=== PATIENT | male | born 1965 | race Caucasian/White ===

== ENCOUNTER → 2024-07-12 18:19 | Outpatient (ROUT) | payer OTHER, MEDICAID, SELFPAY ==
[2024-07-12 18:28] LABS: Add Manual Diff / Slide Review NO; Basophils Absolute Auto 100 /uL (0-100); Basophils Percent Auto 1.3 % (0-2); Eosinophils Absolute Auto 300 /uL (0-450); Eosinophils Percent Auto 3.4 % (2-4); Hematocrit 41.9 % (41-53); Hemoglobin 14.3 g/dL (13.5-17.5); Lymphocytes Absolute Auto 2200 /uL (1100-4500); Lymphocytes Percent Auto 26.5 % (25-40); Mean Corpuscular HGB Conc 34.1 % (30-36); Mean Corpuscular Hemoglobin 29.3 PG (26-34); Mean Corpuscular Volume 85.9 fL (80-100); Monocytes Absolute Auto 900 /uL (0-900); Monocytes Percent Auto 10.5 % (3-14); Neutrophils Absolute Auto 4700 /uL (1500-7000); Neutrophils Percent Auto 58.3 % (50-75); Platelet Count 264 X10^3/uL (150-400); Red Blood Cell Count 4.88 X10^6/uL (4.5-5.9); Red Cell Distribution Width 13.7 % (11.6-14.8); White Blood Cell Count 8.2 X10^3/uL (4.5-11.0)
[2024-07-12 18:40] LABS: Appearance Urine UA CLOUDY; Bilirubin Urine UA NEGATIVE (NEGATIVE); Glucose Urine UA NEGATIVE (Negative); Ketones Urine UA TRACE (NEGATIVE); Leukocyte Esterase Urine UA NEGATIVE (NEGATIVE); Nitrite Urine UA NEGATIVE (Negative); Occult Blood Urine UA NEGATIVE (Negative); Protein Urine UA 2+ (Negative); pH Urine UA >= 9.0 (4.5-8.0)
[2024-07-12 18:44] LABS: Blood Urea Nitrogen 26 mg/dL (9-20); Calcium 9.7 mg/dL (8.4-10.2); Carbon Dioxide 25 mmol/L (22-32); Chloride 104 mmol/L (98-107); Color Urine UA Amber; Estimated Glomerular Filt Rate > 60 mL/min (>60); Glucose 121 mg/dL (80-110); HEMOLYSIS 21 (0-50); Potassium 4.3 mmol/L (3.4-5.1); Sodium 140 mmol/L (137-145)
[2024-07-12 18:51] LABS: Bacteria Urine Moderate (10-30); Culture Indicated Urine Specimen Cultured; RBC Urine 5-10/HPF (0-5/HPF); Squamous Epithelial Cell Urine 0-1 /HPF (0-5/HPF); Urine Volume 10mL (spun); WBC Urine 1-5/HPF (0-5/HPF)
== END ==
PROVIDERS: Visit Provider Internal Medicine
DX: R30.0 Dysuria (principal); R10.9 Unspecified abdominal pain
CPT/HCPCS: 80048; 81001; 85025; 87086

== ENCOUNTER 2024-07-14 15:45 | Emergency (ER) | payer OTHER, MEDICAID, SELFPAY ==
[2024-07-14] VITALS (16 sets, daily range): BP systolic 151–240; BP diastolic 80–140; PULSE 66–82; RESP 15–18; TEMP 36.5; O2SAT 93–98; BMI 29.9
--- NOTE | 2024-07-14 15:59 | DI.RAD.S_ITS ---
PROCEDURE: XR CHEST 1V INDICATIONS: chest pain TECHNIQUE: One view of the chest was acquired. COMPARISON: Chest x-ray December 30 2022 FINDINGS: New mild bilateral perihilar and lower lobe peribronchial thickening some of which may be related to expiratory result although bronchitis, viral infection, asthma or other process could be considered. Mild calcifications of the aortic arch and descending aorta unchanged. Moderate degenerate changes of the thoracic spine unchanged. Cardiopericardial silhouette and pulmonary vasculature within normal limits. No pneumothorax, no pleural effusion, no lobar consolidation. IMPRESSION: New mild bilateral perihilar and lower lobe peribronchial thickening as discussed above bronchitis, viral infection, asthma or other process could be considered. If symptoms persist or worsen, CT chest could be performed Dictated by: Sim Chisholm M.D. on 07/14/2024 at 16:24 Approved by: Sim Chisholm M.D. on 07/14/2024 at 16:32
--- NOTE | 2024-07-14 16:06 | EKG_ITS ---
[address] [address] Test Date: 2024-07-14 Pat Name: MONY MONET Department: [facility] Room: Gender: Male Stock Order Lister: JEANNETTE : 1965 Requested By: Order Number: [id number] Reading MD: Zaire Rodrigues Measurements Intervals [place] Rate: 67 P: 50 OK: 152 QRS: 69 QRSD: 92 T: 41 QT: 428 QTc: 452 Interpretive Statements Normal sinus rhythm Electronically Signed On 07-14-2024 19:52:37 PDT by Zaire Rodrigues
[2024-07-14 16:16] LABS: Add Manual Diff / Slide Review NO; Basophils Absolute Auto 100 /uL (0-100); Basophils Percent Auto 1.2 % (0-2); Eosinophils Absolute Auto 300 /uL (0-450); Eosinophils Percent Auto 3.8 % (2-4); Hematocrit 40.7 % (41-53); Hemoglobin 13.9 g/dL (13.5-17.5); Lymphocytes Absolute Auto 1800 /uL (1100-4500); Mean Corpuscular HGB Conc 34.1 % (30-36); Mean Corpuscular Hemoglobin 29.1 PG (26-34); Mean Corpuscular Volume 85.3 fL (80-100); Monocytes Absolute Auto 1100 /uL (0-900); Monocytes Percent Auto 12.3 % (3-14); Neutrophils Absolute Auto 5300 /uL (1500-7000); Neutrophils Percent Auto 61.7 % (50-75); Platelet Count 270 X10^3/uL (150-400); Red Blood Cell Count 4.77 X10^6/uL (4.5-5.9); Red Cell Distribution Width 13.9 % (11.6-14.8); White Blood Cell Count 8.5 X10^3/uL (4.5-11.0)
[2024-07-14 16:17] LABS: INR 1.1 (0.9-1.3); Prothrombin Time 12.4 SECONDS (9.4-12.5)
[2024-07-14 16:20] LABS: PTT Partial Thromboplastin Tim 28 SECONDS (25.1-36.5)
[2024-07-14 16:22] LABS: Alanine Aminotransferase 6 IU/L (<50); Albumin 4.3 g/dL (3.5-5.0); Albumin Globulin Ratio 1.5 (1.0-2.8); Alkaline Phosphatase 114 U/L (38-126); Aspartate Aminotransferase 23 IU/L (17-59); BUN Creatinine Ratio 19.2 (6-22); Bilirubin Total 0.5 mg/dL (0.2-1.3); Blood Urea Nitrogen 23 mg/dL (9-20); Calcium 9.1 mg/dL (8.4-10.2); Carbon Dioxide 24 mmol/L (22-32); Chloride 105 mmol/L (98-107); Creatine Kinase 78 U/L (55-170); Estimated Glomerular Filt Rate > 60 mL/min (>60); Globulin 2.9 g/dL (1.7-4.1); Glucose 107 mg/dL (80-110); HEMOLYSIS < 15 (0-50); Lipase 50 U/L (23-300); Magnesium 2.1 mg/dL (1.6-2.3); Potassium 4.2 mmol/L (3.4-5.1); Sodium 139 mmol/L (137-145); Total Protein 7.2 g/dL (6.3-8.2)
[2024-07-14 16:33] LABS: NT-proBNP (BNP-Adult 18+) 477 pg/mL (<125); Troponin I < 0.012 ng/mL (0.01-0.034)
--- NOTE | 2024-07-14 19:02 | PC.NURSE ---
Called patient facility to find out wether he got his blood pressure medications and parkinons meds this morning. Facility informed this RN that they held his propranolol but gave his atenolol. Provider aware and will continue to monitor patient.
--- NOTE | 2024-07-14 19:35 | PC.NURSE ---
Provider gave this RN verbal order to give patient his parkinsons and hypertension medications, see MAR
[2024-07-14] MEDS: atenoloL 50 MG TABLET PO (19:46)
[2024-07-14] MEDS: CARBIDOPA-LEVODOPA 25/100 TABLET 1 EACH PO (19:46)
--- NOTE | 2024-07-14 20:38 | ED.RECABL ---
HPI - Recheck/Abnormal Lab/Rx General Chief Complaint: Recheck/Abnormal Lab/Rx Stated Complaint: Hypotension Time Seen by Provider: 07/14/24 18:11 Source: patient Mode of arrival: EMS History of Present Illness HPI narrative: 59-year-old gentleman with a history of Parkinson's disease, hypertension, BPH, mixed incontinence currently living at [facility], staff noted hypotension today and sent him to the ER for further evaluation. He has been normotensive to hypertensive throughout his stay. Has no specific complaints today. He does mentioned that he has been incontinent of urine but it does look like this has been an chronic problem without any acute findings. No fevers, cough, chills, headaches, abdominal pain Related Data Allergies Allergy/AdvReac Type Severity Reaction Status Date / Time No Known Drug Allergies Allergy Verified 07/14/24 15:57 Review of Systems Review of Systems Narrative: Pertinent positive and negative findings as per HPI Patient History Medical History Constipation BPH (benign prostatic hyperplasia) Hypertension Parkinsons disease Social History Smoking Status: Unknown if ever smoked Smoking Status: Unknown if ever smoked alcohol intake frequency: holidays/special occasions only Substance Use Type: does not use Exam Initial Vital Signs Initial Vital Signs: Vital Signs Temperature 97.7 F 07/14/24 15:45 Pulse Rate 66 07/14/24 15:45 Respiratory Rate 15 07/14/24 15:45 Blood Pressure 151/80 H 07/14/24 15:45 Pulse Oximetry 98 07/14/24 15:45 Oxygen Delivery Method Room Air 07/14/24 15:45 General: Slightly disheveled with sequelae of fairly advanced Parkinson's disease, slowed slightly slurred speech but alert and cooperative HEENT: Moist mucous membranes, normal sclera with reactive pupils, Respiratory: Lungs are clear to auscultation, no wheezing no rales no rhonchi. Full and symmetrical air movement Cardiac: Regular rate and rhythm no murmurs no bruits Abdomen: Soft, nontender, good bowel tones, no flank pain Skin: Warm and dry, no rashes Extremities: No trauma, well perfused Psych: Cooperative, Course Orders Ordered: ED Orders 07/14/24 15:59 XR chest 1V Stat EKG-12 Lead Stat 07/14/24 16:00 Complete Blood Count AUTO DIFF Stat Comprehensive Metabolic Panel Stat Lipase Stat Magnesium Stat NT-proBNP (BNP-Adult 18+) Stat PTT Partial Thromboplastin Radhames Stat Prothrombin Time INR Stat Troponin & CK Cardiac Panel Stat 07/14/24 20:51 Urine Culture Stat Urine Microscopic Stat 07/14/24 21:54 Urine Culture Stat Discontinued Medications Atenolol (Atenolol 50 Mg Tablet) 50 mg PO NOW ONE Stop: 07/14/24 19:35 Last Admin: 07/14/24 19:46 Dose: 50 mg Documented By: TERRI Carbidopa/Levodopa (Carbidopa-Levodopa 25/100 Tablet) 1 each PO NOW ONE Stop: 07/14/24 19:35 Last Admin: 07/14/24 19:46 Dose: 1 each Documented By: TERRI Vital Signs Vital signs: Vital Signs - 8 hr 07/14/24 15:45 07/14/24 16:43 07/14/24 16:49 Temperature 97.7 F Pulse Rate 66 71 75 Respiratory Rate 15 Blood Pressure 151/80 H 193/140 H Pulse Oximetry 98 96 97 Oxygen Delivery Method Room Air 07/14/24 16:49 07/14/24 17:00 07/14/24 17:00 Temperature Pulse Rate 72 Respiratory Rate Blood Pressure 193/140 H 204/116 H Pulse Oximetry 97 Oxygen Delivery Method 07/14/24 17:30 07/14/24 17:31 07/14/24 17:31 Temperature Pulse Rate 80 76 Respiratory Rate Blood Pressure 185/81 H Pulse Oximetry 96 96 Oxygen Delivery Method 07/14/24 18:00 07/14/24 18:00 07/14/24 18:30 Temperature Pulse Rate 71 Respiratory Rate Blood Pressure 198/94 H 223/101 H Pulse Oximetry 97 Oxygen Delivery Method 07/14/24 18:30 07/14/24 19:00 07/14/24 19:01 Temperature Pulse Rate 75 78 80 Respiratory Rate Blood Pressure Pulse Oximetry 97 96 96 Oxygen Delivery Method 07/14/24 19:01 07/14/24 19:12 07/14/24 19:12 Temperature Pulse Rate 82 Respiratory Rate Blood Pressure 240/108 H 204/98 H Pulse Oximetry 97 Oxygen Delivery Method 07/14/24 19:31 07/14/24 20:00 07/14/24 20:01 Temperature Pulse Rate 80 73 73 Respiratory Rate 18 Blood Pressure Pulse Oximetry 96 96 93 Oxygen Delivery Method 07/14/24 20:01 07/14/24 20:30 07/14/24 20:30 Temperature Pulse Rate 75 Respiratory Rate Blood Pressure 173/85 H 178/89 H Pulse Oximetry 96 Oxygen Delivery Method MDM - Recheck/Abnormal Lab/Rx Lab Data 07/14/24 16:00 07/14/24 16:00 Labs: Lab Results 07/14/24 07/14/24 Range/Units 16:00 20:51 WBC 8.5 (4.5-11.0) X10^3/uL RBC 4.77 (4.5-5.9) X10^6/uL Hgb 13.9 (13.5-17.5) g/dL Hct 40.7 L (41-53) % MCV 85.3 (80-100) fL MCH 29.1 (26-34) PG MCHC 34.1 (30-36) % RDW 13.9 (11.6-14.8) % Plt Count 270 (150-400) X10^3/uL Neut % (Auto) 61.7 (50-75) % Lymph % (Auto) 21.0 L (25-40) % [place] % (Auto) 12.3 (3-14) % Eos % (Auto) 3.8 (2-4) % Baso % (Auto) 1.2 (0-2) % Neut # (Auto) 5300 (3974-7717) /uL Lymph # (Auto) 1800 (9657-8531) /uL [place] # (Auto) 1100 H (0-900) /uL Eos # (Auto) 300 (0-450) /uL Baso # (Auto) 100 (0-100) /uL PT 12.4 (9.4-12.5) SECONDS INR 1.1 (0.9-1.3) APTT 28 (25.1-36.5) SECONDS Sodium 139 (137-145) mmol/L Potassium 4.2 (3.4-5.1) mmol/L Chloride 105 (98-107) mmol/L Carbon Dioxide 24 (22-32) mmol/L BUN 23 H (9-20) mg/dL Creatinine 1.20 (0.66-1.25) mg/dL Estimated GFR > 60 (>60) mL/min BUN/Creatinine Ratio 19.2 (6-22) Glucose 107 (80-110) mg/dL Calcium 9.1 (8.4-10.2) mg/dL Magnesium 2.1 (1.6-2.3) mg/dL Total Bilirubin 0.5 (0.2-1.3) mg/dL AST 23 (17-59) IU/L ALT 6 (<50) IU/L Alkaline Phosphatase 114 (38-126) U/L Total Creatine Kinase 78 (55-170) U/L Troponin I < 0.012 (0.01-0.034) ng/mL NT-Pro-B Natriuret Pep 477 H (<125) pg/mL Total Protein 7.2 (6.3-8.2) g/dL Albumin 4.3 (3.5-5.0) g/dL Globulin 2.9 (1.7-4.1) g/dL Albumin/Globulin Ratio 1.5 (1.0-2.8) Lipase 50 (23-300) U/L Urine RBC 0-1/hpf (0-5/HPF) Urine WBC 10-30/hpf H (0-5/HPF) Ur Squamous Epith Cells 1-5 /hpf (0-5/HPF) Triple Phos Crystals Few Urine Bacteria Many (>30) H (None) Urine Mucus 1+ H (Negative) Ur Culture Indicated? Cult not indicated Vol Urine Centrifuged 10ml (spun) Urine Dip Bedside Urine Glucose Negative Bedside Urine Bilirubin - Negative Bedside Urine Ketone - Negative Urine Specific [place] 1.015 Bedside Urine Occult Blood - Negative Bedside Urine pH 7.5 Bedside Urine Protein +/- 15 Bedside Urine Urobilinogen - Negative Bedside Urine Nitrite - Negative Bedside Urine Leukocytes +/- 15 Esterase MDM Narrative Medical decision making narrative: CC: Hypotension noted at [facility] this morning Complicating co-morbidities: Parkinson's disease, hypertension, BPH Data collected from: patient, medication records from [facility] are available Social determinants of health that may influence the patients condition: Advanced Parkinson's disease Medical records reviewed: Minimal documentation from [facility] is reviewed Differential considered: Transient hypotension, sepsis, complications of vascular side effects of Parkinson's disease, extra dose blood pressure medication Exam documented above, pertinent findings include: Patient appears to be at his baseline with moderate parkinsonian symptoms but alert and able to communicate appropriately Lab Test results independently reviewed as above. Pertinent findings: Chemistries are reassuring CBC shows no significant anemia or signs of infection Urine shows white cells and bacteria, we will be cultured, if culture returns positive will need antibiotic treatment. Antibiotics not initiated with ER visit today Independently reviewed EKG: Sinus rhythm at a rate of 67 no acute ischemic changes Imaging studies independently reviewed: Radiology description of mild bilateral perihilar and lower lobe peribronchial thickening. There is no clinical correlation with was radiologic finding today Treatments: Patient was given his evening dose of carbidopa levodopa. He was hypertensive in the emergency department and given an additional dose of atenolol 50 mg this evening. Re-evaluations: Patient seems to be at his baseline, hemodynamically stable and ready for discharge Discussion: 59-year-old gentleman with Parkinson's disease found to be hypotensive it is assisted living facility this morning. This has resolved and in fact he has been hypertensive in the emergency department and was given an additional dose of atenolol. It may be that he is having more orthostatic issues related to his Parkinson's disease and will likely benefit from additional review of medications from his primary care physician. At this point there was no evidence of infection, acute renal, cardiac or liver abnormalities. No indication for additional imaging or hospitalization and he will be assisted back to [facility] living facility. Discharge Plan Departure Patient Disposition: Home Clinical Impression: Blood pressure instability Parkinson's disease Qualifiers: Dyskinesia presence: with dyskinesia Fluctuating manifestations: with fluctuating manifestations Qualified Code(s): G20.B2 - Parkinson's disease with dyskinesia, with fluctuations Activity Restrictions/Additional Instructions: Thank you for coming in today With blood work, urinalysis, x-rays and EKGs we did not find any acute findings that would indicate that you need to be hospitalized for we need any additional studies. Of the your blood pressure was low this morning was actually hypertensive through much of your ER visit. You were given an additional dose of atenolol at approximately 7:00 p.m. and you were given your evening dose of carbidopa levodopa. I would recommend follow up with your primary care physician to talk about blood pressure lability in the setting of your Parkinson's disease to see what additional options they may have for you. We have cultured her urine. If it does come back showing a bladder infection, we will contact you with the appropriate antibiotics If you find that you are getting worse or develop any new symptoms, please feel free to return to the emergency department for further evaluation. Stand Alone Forms: Patient Portal/API
[2024-07-14 21:31] LABS: Bacteria Urine Many (>30); RBC Urine 0-1/HPF (0-5/HPF); Squamous Epithelial Cell Urine 1-5 /HPF (0-5/HPF); Urine Volume 10mL (spun); WBC Urine 10-30/HPF (0-5/HPF)
[2024-07-14 21:32] LABS: Culture Indicated Urine Cult Not Indicated; Mucus Urine 1+ (Negative); Triple Phosphate Crystal Urine Few
== END 2024-07-14 23:12 | disposition home or self-care (01) ==
PROVIDERS: Emergency Medicine; Emergency Provider Emergency Medicine
DX: G20.B2 Parkinson's disease with dyskinesia, with fluctuations (principal); I99.8 Other disorder of circulatory system; R47.81 Slurred speech; N40.0 Benign prostatic hyperplasia without lower urinary tract symptoms; R07.9 Chest pain, unspecified
CPT/HCPCS: 36415; 71045; 80053; 81003; 81015; 82550; 83690; 83735; 83880; 84484; 85025; 85610; 85730; 87086; 93005; 99284

== ENCOUNTER → 2024-08-02 15:12 | Outpatient (ROUT) | payer OTHER, MEDICAID, SELFPAY ==
[2024-08-02 15:24] LABS: Appearance Urine UA SL CLOUDY; Bilirubin Urine UA NEGATIVE (NEGATIVE); Color Urine UA YELLOW; Glucose Urine UA NEGATIVE (Negative); Ketones Urine UA NEGATIVE (NEGATIVE); Leukocyte Esterase Urine UA 2+ (NEGATIVE); Nitrite Urine UA NEGATIVE (Negative); Occult Blood Urine UA NEGATIVE (Negative); Protein Urine UA TRACE (Negative)
[2024-08-02 16:09] LABS: Amorphous Sediment Urine 1+; Bacteria Urine Few (2-10); Hyaline Casts Urine 1-5/LPF; RBC Urine 1-5/HPF (0-5/HPF); Squamous Epithelial Cell Urine 0-1 /HPF (0-5/HPF); Triple Phosphate Crystal Urine Few; Urine Volume 10mL (spun); WBC Urine 30-100/HPF (0-5/HPF); White Blood Cell Casts Urine 1-5/LPF
[2024-08-02 16:10] LABS: Culture Indicated Urine Cult Not Indicated; Mucus Urine 1+ (Negative)
== END ==
PROVIDERS: Visit Provider Nurse Practitioner Family
DX: R10.9 Unspecified abdominal pain (principal); R30.0 Dysuria; R35.0 Frequency of micturition; R39.15 Urgency of urination
CPT/HCPCS: 81001

== ENCOUNTER → 2024-08-03 17:34 | Outpatient (ROUT) | payer OTHER, MEDICAID, SELFPAY ==
[2024-08-03 17:56] LABS: Bilirubin Urine UA NEGATIVE (NEGATIVE); Color Urine UA YELLOW; Glucose Urine UA NEGATIVE (Negative); Ketones Urine UA 1+ (NEGATIVE); Leukocyte Esterase Urine UA 2+ (NEGATIVE); Nitrite Urine UA NEGATIVE (Negative); Occult Blood Urine UA NEGATIVE (Negative); Protein Urine UA 1+ (Negative)
[2024-08-03 18:28] LABS: Appearance Urine UA CLOUDY
[2024-08-03 18:32] LABS: Amorphous Sediment Urine 1+; Bacteria Urine Moderate (10-30); Culture Indicated Urine Specimen Cultured; Mucus Urine 1+ (Negative); RBC Urine None Seen (0-5/HPF); Squamous Epithelial Cell Urine None Seen (0-5/HPF); Urine Volume 10mL (spun); WBC Urine >100/HPF (0-5/HPF)
== END ==
PROVIDERS: Visit Provider Nurse Practitioner Family
DX: R10.9 Unspecified abdominal pain (principal); R30.0 Dysuria; R35.0 Frequency of micturition; R39.15 Urgency of urination
CPT/HCPCS: 81001; 87086

== ENCOUNTER → 2024-08-24 19:35 | Outpatient (ROUT) | payer OTHER, MEDICAID, SELFPAY ==
[2024-08-24 19:50] LABS: Bilirubin Urine UA NEGATIVE (NEGATIVE); Color Urine UA YELLOW; Glucose Urine UA NEGATIVE (Negative); Ketones Urine UA NEGATIVE (NEGATIVE); Leukocyte Esterase Urine UA 3+ (NEGATIVE); Nitrite Urine UA NEGATIVE (Negative); Occult Blood Urine UA NEGATIVE (Negative); Protein Urine UA NEGATIVE (Negative); Urobilinogen Urine UA 0.2 E.U./dL (0.2)
[2024-08-24 19:59] LABS: Appearance Urine UA CLOUDY; Bacteria Urine Moderate (10-30); Culture Indicated Urine Specimen Cultured; RBC Urine None Seen (0-5/HPF); Squamous Epithelial Cell Urine None Seen (0-5/HPF); Urine Volume 10mL (spun); WBC Urine >100/HPF (0-5/HPF)
== END ==
PROVIDERS: Visit Provider Registered Nurse
DX: R32 Unspecified urinary incontinence (principal); R35.0 Frequency of micturition; R39.15 Urgency of urination; R30.0 Dysuria; R53.1 Weakness
CPT/HCPCS: 81001; 87086

== ENCOUNTER 2024-09-22 17:59 | Inpatient (IN) | payer OTHER, SELFPAY ==
[2024-09-22] VITALS (16 sets, daily range): BP systolic 135–178; BP diastolic 61–85; PULSE 72–78; RESP 18–28; TEMP 36.6–37.3; O2SAT 87–95; BMI 28.4; BMI 27.7
--- NOTE | 2024-09-22 18:16 | DI.RAD.S_ITS ---
PROCEDURE: XR CHEST 1V INDICATIONS: Shortness of breath TECHNIQUE: One view of the chest was acquired. COMPARISON: [facility], CR, XR CHEST 1V, 07/14/2024, 15:58. [facility], CR, XR CHEST 1 VIEW, 12/30/2022, 18:59. [facility], CR, XR CHEST 1V, 09/21/2024, 16:39. FINDINGS: Surgical changes and devices: None. Lungs and pleura: Mild interstitial prominence can be seen. No superimposed focal consolidation can be seen. No pleural effusions or pneumothorax. Mediastinum: The cardiac contours are within normal limits. The aorta demonstrates calcification and tortuosity. Bones and chest wall: No suspicious bony lesions. Age-appropriate bony degenerative changes are seen. Overlying soft tissues appear unremarkable. IMPRESSION: Generalized interstitial prominence can be seen, which appears slightly worse than on the examination the prior day. The appearance is consistent with a viral process. Please consider pulmonary edema in a patient of this age, however. Dictated by: Lito Smith M.D. on 09/22/2024 at 17:41 Approved by: Lito Smith M.D. on 09/22/2024 at 17:42
--- NOTE | 2024-09-22 18:36 | ED.GENADULT ---
HPI - General Adult General Chief complaint: Shortness of Breath/Dyspnea Stated complaint: SOB Time Seen by Provider: 09/22/24 18:13 Source: patient and EMS Mode of arrival: EMS History of Present Illness HPI narrative: patient is a 59-year-old male. History of Parkinson's disease. I evaluated him here in the emergency department yesterday. Was diagnosed with entero / rhino virus / bronchitis. Was not hypoxic. No antibiotics administered. Was discharged home with an albuterol inhaler and spacer. He returns to emergency department today for what was reported to be worsening symptoms. No reported hypoxia. No underlying lung pathology such as COPD or asthma. Is not on oxygen at baseline. He was nonambulatory at baseline given his Parkinson's disease status. Related Data Allergies Allergy/AdvReac Type Severity Reaction Status Date / Time No Known Drug Allergies Allergy Verified 07/14/24 15:57 Review of Systems Review of Systems ROS Unobtainable: All systems reviewed & are unremarkable except as noted in HPI and below Patient History Medical History Constipation BPH (benign prostatic hyperplasia) Hypertension Parkinsons disease Social History Smoking Status: Unknown if ever smoked Smoking Status: Unknown if ever smoked alcohol intake frequency: holidays/special occasions only Substance Use Type: does not use Exam Initial Vital Signs Initial Vital Signs: Vital Signs Pulse Rate 78 09/22/24 18:11 Blood Pressure 170/83 H 09/22/24 18:11 Pulse Oximetry 92 09/22/24 18:11 Const General: cooperative, comfortable and No ill appearing [facility] Head: normal to inspection and normocephalic Resp Effort & Inspection: no cough, not labored, no respiratory distress and tachypneic Auscultation: wheezes Cardio Rate: regular rate Rhythm: regular rhythm Skin General: no rashes or lesions noted Extrem General: edema Course Orders Ordered: ED Orders 09/22/24 18:16 XR chest 1V Stat Measure peak expiratory flow ONCE RT Consult Eval and Treat NOW 09/22/24 18:51 Complete Blood Count AUTO DIFF Stat Comprehensive Metabolic Panel Stat Lactate (Lactic Acid) Stat NT-proBNP (BNP-Adult 18+) Stat Prothrombin Time INR Stat Troponin I Stat Acetaminophen (Acetaminophen 325 Mg Tablet) 650 mg PO Q6H PRN PRN Reason: Fever/Mild Pain (1-3) Albuterol/Ipratropium (Albuterol/Ipratropium 3 Ml Ampul) 3 ml INH [id number] ERWIN Albuterol/Ipratropium (Albuterol/Ipratropium 3 Ml Ampul) 3 ml INH RTQ4HR PRN PRN Reason: Shortness Of Breath Furosemide (Furosemide 40 Mg Tablet) 40 mg PO DAILY [facility] Heparin Sodium (Porcine) (Heparin 5,000 Unit/Ml Vial) 5,000 unit SUBCUT BID ERWIN Azithromycin 500 mg/ Dextrose 250 mls @ 250 mls/hr IV Q24H ERWIN Methylprednisolone (Methylprednisolone 125 Mg/2 Ml Vial) 60 mg IV Q8H ERWIN Naloxone HCl (Naloxone 0.4 Mg/Ml Vial) 0.2 mg IV Q2MIN PRN PRN Reason: Opiate Reversal Ondansetron HCl (Ondansetron 4 Mg/2 Ml Inj) 4 mg IV Q8HR PRN PRN Reason: Nausea And Vomiting Discontinued Medications Albuterol/Ipratropium (Albuterol/Ipratropium 3 Ml Ampul) 3 ml INH NOW ONE Stop: 09/22/24 18:37 Last Admin: 09/22/24 18:58 Dose: 3 ml Documented By: RORY Furosemide (Furosemide 40 Mg/4 Ml Vial) 40 mg IV NOW ONE Stop: 09/22/24 20:15 Last Admin: 09/22/24 20:50 Dose: 40 mg Documented By: MARIZA Azithromycin 500 mg/ Dextrose 250 mls @ 250 mls/hr IV NOW ONE Stop: 09/22/24 20:15 Last Infusion: 09/22/24 21:31 Dose: 250 mls/hr Documented By: Infusion: 09/22/24 20:49 Dose: 0 mls/hr Documented By: Admin: 09/22/24 20:49 Dose: 250 mls/hr Documented By: MARIZA Methylprednisolone (Methylprednisolone 125 Mg/2 Ml Vial) 125 mg IV NOW ONE Stop: 09/22/24 18:37 Last Admin: 09/22/24 19:31 Dose: 125 mg Documented By: MARIZA Methylprednisolone (Methylprednisolone 125 Mg/2 Ml Vial) 60 mg IV Q8H [facility] Vital Signs Vital signs: Vital Signs - 8 hr 09/22/24 18:11 09/22/24 18:11 09/22/24 18:14 Temperature 99.1 F Pulse Rate 78 72 Respiratory Rate 24 Blood Pressure 170/83 H 170/83 H Pulse Oximetry 92 94 Oxygen Delivery Method Room Air Fraction of Inspired Oxygen 09/22/24 18:28 09/22/24 18:28 09/22/24 18:30 Temperature Pulse Rate 75 75 Respiratory Rate Blood Pressure 170/77 H Pulse Oximetry 93 94 Oxygen Delivery Method Room Air Fraction of Inspired Oxygen 09/22/24 18:39 09/22/24 18:39 09/22/24 19:00 Temperature Pulse Rate 74 75 Respiratory Rate 24 27 H Blood Pressure 178/85 H Pulse Oximetry 93 92 Oxygen Delivery Method Room Air Fraction of Inspired Oxygen 09/22/24 19:01 09/22/24 19:30 09/22/24 19:57 Temperature Pulse Rate 73 73 Respiratory Rate 20 25 H Blood Pressure 176/79 H Pulse Oximetry 93 93 Oxygen Delivery Method Room Air Room Air Fraction of Inspired Oxygen 21 09/22/24 19:57 09/22/24 20:00 09/22/24 20:00 Temperature Pulse Rate 75 75 Respiratory Rate 28 H 25 H Blood Pressure 168/71 H Pulse Oximetry 93 92 Oxygen Delivery Method Fraction of Inspired Oxygen 09/22/24 20:08 Temperature Pulse Rate Respiratory Rate Blood Pressure Pulse Oximetry 87 L Oxygen Delivery Method Room Air Fraction of Inspired Oxygen Medical Decision Making Medical Records Medical records reviewed: Yes I reviewed the patient's medical records. Lab Data Lab results reviewed: Yes I reviewed the patient's lab results. 09/22/24 18:51 09/22/24 18:51 Labs: Lab Results 09/22/24 Range/Units 18:51 WBC 10.5 (4.5-11.0) X10^3/uL RBC 4.76 (4.5-5.9) X10^6/uL Hgb 13.8 (13.5-17.5) g/dL Hct 40.2 L (41-53) % MCV 84.6 (80-100) fL MCH 29.0 (26-34) PG MCHC 34.2 (30-36) % RDW 13.3 (11.6-14.8) % Plt Count 249 (150-400) X10^3/uL Neut % (Auto) 73.8 (50-75) % Lymph % (Auto) 12.4 L (25-40) % [place] % (Auto) 8.8 (3-14) % Eos % (Auto) 4.7 H (2-4) % Baso % (Auto) 0.3 (0-2) % Neut # (Auto) 7800 H (5337-3102) /uL Lymph # (Auto) 1300 (6860-4915) /uL [place] # (Auto) 900 (0-900) /uL Eos # (Auto) 500 H (0-450) /uL Baso # (Auto) 0 (0-100) /uL PT 13.0 H (9.4-12.5) SECONDS INR 1.1 (0.9-1.3) Sodium 137 (137-145) mmol/L Potassium 4.4 (3.4-5.1) mmol/L Chloride 102 (98-107) mmol/L Carbon Dioxide 28 (22-32) mmol/L BUN 18 (9-20) mg/dL Creatinine 0.75 (0.66-1.25) mg/dL Estimated GFR > 60 (>60) mL/min BUN/Creatinine Ratio 24.0 H (6-22) Glucose 137 H (80-110) mg/dL Lactate 1.4 (0.7-2.1) mmol/L Calcium 9.0 (8.4-10.2) mg/dL Total Bilirubin 0.5 (0.2-1.3) mg/dL AST 27 (17-59) IU/L ALT 13 (<50) IU/L Alkaline Phosphatase 117 (38-126) U/L Troponin I < 0.012 (0.01-0.034) ng/mL NT-Pro-B Natriuret Pep 288 H (<125) pg/mL Total Protein 7.2 (6.3-8.2) g/dL Albumin 4.1 (3.5-5.0) g/dL Globulin 3.1 (1.7-4.1) g/dL Albumin/Globulin Ratio 1.3 (1.0-2.8) Imaging Data Chest x-ray: Radiologist's Impression: PROCEDURE: XR CHEST 1V INDICATIONS: Shortness of breath TECHNIQUE: One view of the chest was acquired. COMPARISON: [facility], CR, XR CHEST 1V, 07/14/2024, 15:58. [facility], CR, XR CHEST 1 VIEW, 12/30/2022, 18:59. [facility], CR, XR CHEST 1V, 09/21/2024, 16:39. FINDINGS: Surgical changes and devices: None. Lungs and pleura: Mild interstitial prominence can be seen. No superimposed focal consolidation can be seen. No pleural effusions or pneumothorax. Mediastinum: The cardiac contours are within normal limits. The aorta demonstrates calcification and tortuosity. Bones and chest wall: No suspicious bony lesions. Age-appropriate bony degenerative changes are seen. Overlying soft tissues appear unremarkable. IMPRESSION: Generalized interstitial prominence can be seen, which appears slightly worse than on the examination the prior day. The appearance is consistent with a viral process. Please consider pulmonary edema in a patient of this age, however. MDM Narrative Medical decision making narrative: Upon arrival patient does have diffuse wheezing. He was given nebulizer treatments which did seem to help his symptoms somewhat however he was now persistently hypoxic with oxygen saturations in the mid to upper 80s. No cough. Chest x-ray today is somewhat worse than yesterday. He does have lower extremity edema however he states this is baseline for him. His BNP only slightly elevated. He was no history of heart failure. He has a known diagnosis of rhino virus. Because of his hypoxia and now requiring oxygen will admit to the hospital. Discussed the case with Dr. Acosta hospitalist on-call who asked that he be given a dose of azithromycin. Also asked for Lasix. Patient has already received steroids. Discussed the need for admission with the patient. He expressed understanding and agreement. Discharge Plan Departure Patient Disposition: Admitted As Inpatient Clinical Impression: Rhinovirus infection, Bronchitis, Hypoxia Admit Date/Time: 09/22/24 20:14 Admit Provider: Pasquale Acosta
[2024-09-22] MEDS: ALBUTEROL/IPRATROPIUM 3 ML AMPUL INH (18:58)
[2024-09-22 19:06] LABS: Add Manual Diff / Slide Review NO; Basophils Absolute Auto 0 /uL (0-100); Basophils Percent Auto 0.3 % (0-2); Eosinophils Absolute Auto 500 /uL (0-450); Eosinophils Percent Auto 4.7 % (2-4); Hematocrit 40.2 % (41-53); Hemoglobin 13.8 g/dL (13.5-17.5); Lymphocytes Absolute Auto 1300 /uL (1100-4500); Lymphocytes Percent Auto 12.4 % (25-40); Mean Corpuscular HGB Conc 34.2 % (30-36); Mean Corpuscular Volume 84.6 fL (80-100); Monocytes Absolute Auto 900 /uL (0-900); Monocytes Percent Auto 8.8 % (3-14); Neutrophils Absolute Auto 7800 /uL (1500-7000); Neutrophils Percent Auto 73.8 % (50-75); Platelet Count 249 X10^3/uL (150-400); Red Blood Cell Count 4.76 X10^6/uL (4.5-5.9); Red Cell Distribution Width 13.3 % (11.6-14.8); White Blood Cell Count 10.5 X10^3/uL (4.5-11.0)
[2024-09-22 19:19] LABS: Lactate (Lactic Acid) 1.4 mmol/L (0.7-2.1)
[2024-09-22 19:20] LABS: Alanine Aminotransferase 13 IU/L (<50); Albumin 4.1 g/dL (3.5-5.0); Albumin Globulin Ratio 1.3 (1.0-2.8); Alkaline Phosphatase 117 U/L (38-126); Aspartate Aminotransferase 27 IU/L (17-59); Bilirubin Total 0.5 mg/dL (0.2-1.3); Blood Urea Nitrogen 18 mg/dL (9-20); Carbon Dioxide 28 mmol/L (22-32); Chloride 102 mmol/L (98-107); Estimated Glomerular Filt Rate > 60 mL/min (>60); Globulin 3.1 g/dL (1.7-4.1); Glucose 137 mg/dL (80-110); Potassium 4.4 mmol/L (3.4-5.1); Sodium 137 mmol/L (137-145); Total Protein 7.2 g/dL (6.3-8.2)
[2024-09-22 19:25] LABS: INR 1.1 (0.9-1.3)
[2024-09-22] MEDS: methylPREDNISolone 125 MG/2 ML VIAL IV (19:31)
[2024-09-22 19:34] LABS: HEMOLYSIS 21 (0-50); NT-proBNP (BNP-Adult 18+) 288 pg/mL (<125); Troponin I < 0.012 ng/mL (0.01-0.034)
[2024-09-22] MEDS: AZITHROMYCIN 500 MG in DEXTROSE 5% IN WATER 250 ML 250 MG IV (20:49)
[2024-09-22] MEDS: FUROSEMIDE 40 MG/4 ML VIAL IV (20:50)
[2024-09-22] MEDS: HEPARIN 5,000 UNIT/ML VIAL 5000 UNIT SUBCUT (22:28)
[2024-09-22] MEDS: BENZONATATE 100 MG CAPSULE PO (22:48)
[2024-09-23] VITALS (10 sets, daily range): BP systolic 115–140; BP diastolic 59–85; PULSE 64–71; RESP 17–20; TEMP 35.9–37.3; O2SAT 90–97
[2024-09-23] MEDS: methylPREDNISolone 125 MG/2 ML VIAL 60 MG IV (02:44)
[2024-09-23] MEDS: ACETAMINOPHEN 325 MG TABLET 650 MG PO (03:58)
[2024-09-23] MEDS: BENZONATATE 100 MG CAPSULE PO ×2 (04:02→21:11)
[2024-09-23 05:40] LABS: Add Manual Diff / Slide Review NO; Basophils Absolute Auto 0 /uL (0-100); Basophils Percent Auto 0.2 % (0-2); Eosinophils Absolute Auto 0 /uL (0-450); Eosinophils Percent Auto 0.2 % (2-4); Hematocrit 39.5 % (41-53); Hemoglobin 13.5 g/dL (13.5-17.5); Lymphocytes Absolute Auto 900 /uL (1100-4500); Lymphocytes Percent Auto 9.8 % (25-40); Mean Corpuscular HGB Conc 34.1 % (30-36); Mean Corpuscular Hemoglobin 28.7 PG (26-34); Mean Corpuscular Volume 84.1 fL (80-100); Monocytes Absolute Auto 100 /uL (0-900); Monocytes Percent Auto 1.4 % (3-14); Neutrophils Absolute Auto 7800 /uL (1500-7000); Neutrophils Percent Auto 88.4 % (50-75); Platelet Count 267 X10^3/uL (150-400); Red Cell Distribution Width 13.5 % (11.6-14.8); White Blood Cell Count 8.8 X10^3/uL (4.5-11.0)
--- NOTE | 2024-09-23 05:51 | P.HP_ITS ---
History of Present Illness History of Present Illness Chief complaint: SOB Narrative: 59-year-old male with past medical history of hypertension, BPH and Parkinson's disease presents with complain of shortness of breath and cough. Per the patient's report, the patient was seen here yesterday with similar symptoms. The patient was found to have rhinovirus and was stable to be discharged back to his assisted living. However when the patient arrived to his assisted living, the patient has increasing shortness of breath, wheezing and coughing. The patient state that his cough was only mildly productive. The patient also admit to have some subjective fever but denies any chills, nausea, vomiting or diarrhea. In our ER, the patient was hemodynamically stable. The patient was requiring 2L of oxygen per nasal cannula. Chest x-ray shows scatter pattern of possible atypical pneumonia/bronchitis/pulmonary edema. The patient was given IV Solumedrol, duonebs and Azithromycin. BNP was in the 200s. Due to possible pulmonary edema on x-ray patient was given 20 mg of IV lasix . [facility] Medical History Constipation BPH (benign prostatic hyperplasia) Hypertension Parkinsons disease Social History Smoking Status: Unknown if ever smoked Meds Home Medications and Allergies Home Medications Medication Instructions Recorded Confirmed Type acetaminophen 325 mg tablet 650 mg PO Q4HR PRN pain 09/22/24 09/22/24 History atenolol 50 mg tablet 50 mg PO DAILY 09/22/24 09/22/24 History carbidopa 25 mg-levodopa 100 mg 3 tab PO 3XD 09/22/24 09/23/24 History tablet cholecalciferol (vitamin D3) 25 25 mcg PO DAILY vit b deficiency 09/22/24 09/22/24 History mcg (1,000 unit) tablet (Vitamin D3) finasteride 5 mg tablet 5 mg PO DAILY BPH 09/22/24 09/22/24 History fluticasone propionate 50 2 spray intranasal DAILY allergies 09/22/24 09/22/24 History mcg/actuation nasal spray,suspension multivitamin 1 tab PO DAILY 09/22/24 09/22/24 History polyethylene glycol 3350 17 17 g PO DAILY 09/22/24 09/22/24 History gram/dose oral powder propranolol 20 mg tablet 20 mg PO DAILY 09/22/24 09/22/24 History trazodone 50 mg tablet 25 mg PO BEDTIME PRN Insomnia 09/22/24 09/22/24 History albuterol sulfate 90 mcg/actuation 2 puff inhalation Q2HR PRN 09/23/24 09/23/24 History aerosol inhaler Shortness Of Breath tamsulosin 0.4 mg capsule 0.4 mg PO BEDTIME 09/23/24 09/23/24 History Allergies Allergy/AdvReac Type Severity Reaction Status Date / Time No Known Drug Allergies Allergy Verified 07/14/24 15:57 Review of Systems Review of Systems ROS: Yes All systems reviewed with the patient and are negative except as otherwise documented Exam Vital Signs (past 8 hours): - 09/23/24 00:26 09/23/24 03:35 09/23/24 03:58 Temperature 97.4 F L 99.1 F 99.1 F Pulse Rate 64 69 Respiratory Rate 20 20 Blood Pressure 139/72 115/63 Pulse Oximetry 93 93 Oxygen Flow Rate 2 2 Fraction of Inspired Oxygen 21 SaO2/FiO2 Ratio 442 Oxygen Delivery Method Oximask Oxygen Flow Rate 2 Narrative Exam Narrative: - As the provider of this telehealth evaluation, requested by the patient's evaluating physician, I attest that I introduced myself to the patient, provided my credentials and determined that telemedicine via a real-time, 2 way interactive audio and video platform is an appropriate and effective means of providing this service. - I reviewed the patient's chart and had a discussion with the member of the patient's treatment team. - The patient and I mutually agreed with continuation of this evaluation via telemedicine. The patient consented for the telemedicine evaluation. - This virtual encounter was taken place from [place]. The encounter was approximately 35 minutes. The nurse was present during the entire time of the encounter and was able to move the stethoscope in appropriate directions. The patient was evaluated at [facility]. Objective Labs 09/23/24 05:12 09/22/24 18:51 Labs: Laboratory Results - last 24 hr 09/22/24 09/23/24 18:51 05:12 WBC 10.5 8.8 RBC 4.76 4.70 Hgb 13.8 13.5 Hct 40.2 L 39.5 L MCV 84.6 84.1 MCH 29.0 28.7 MCHC 34.2 34.1 RDW 13.3 13.5 Plt Count 249 267 Neut % (Auto) 73.8 88.4 H Lymph % (Auto) 12.4 L 9.8 L Gregory % (Auto) 8.8 1.4 L Eos % (Auto) 4.7 H 0.2 L Baso % (Auto) 0.3 0.2 Neut # (Auto) 7800 H 7800 H Lymph # (Auto) 1300 900 L Gregory # (Auto) 900 100 Eos # (Auto) 500 H 0 Baso # (Auto) 0 0 PT 13.0 H INR 1.1 Sodium 137 Potassium 4.4 Chloride 102 Carbon Dioxide 28 BUN 18 Creatinine 0.75 Estimated GFR > 60 BUN/Creatinine Ratio 24.0 H Glucose 137 H Lactate 1.4 Calcium 9.0 Total Bilirubin 0.5 AST 27 ALT 13 Alkaline Phosphatase 117 Troponin I < 0.012 NT-Pro-B Natriuret Pep 288 H Total Protein 7.2 Albumin 4.1 Globulin 3.1 Albumin/Globulin Ratio 1.3 Assessment & Plan Assessment & Plan narrative: Possible COPD/asthma exacerbation. Admit the patient to medical telemetry inpatient. Continue duonebs, O2 and solumedrol. Also will start Azithromycin for possible treatment of bronchitis. Possible mild CHF exacerbation. Status post IV lasix in the ER. Will continue oral lasix with daily weights and trict input and output monitoring. Acute respiratory failure with hypoxemia. Patient currently on 2L of O2. Likely from above. Treat as above and wean down O 2 as able. BPH resume home flomax. Hypertension monitor blood pressure and resume home medication accordingly. DVT prophylaxis hep SQ Code status DNR/DNI Disposition likely back to care facility in two to three days Time-Based Coding :: [TOTAL MINUTES] spent with patient and on the chart (including review of chart, obtaining history, exam, reviewing outside data, placing orders, documenting exam and treatment plan, and counseling patient) on [DATE].
[2024-09-23 05:57] LABS: BUN Creatinine Ratio 31.3 (6-22); Blood Urea Nitrogen 20 mg/dL (9-20); Calcium 9.1 mg/dL (8.4-10.2); Carbon Dioxide 28 mmol/L (22-32); Chloride 103 mmol/L (98-107); Estimated Glomerular Filt Rate > 60 mL/min (>60); Glucose 186 mg/dL (80-110); HEMOLYSIS 17 (0-50); Sodium 138 mmol/L (137-145)
[2024-09-23] MEDS: ALBUTEROL/IPRATROPIUM 3 ML AMPUL INH (08:52)
[2024-09-23] MEDS: CHOLECALCIFEROL (VITAMIN D3) 1,000 UNIT TABLET 1000 UNIT PO (09:27)
[2024-09-23] MEDS: FINASTERIDE 5 MG TABLET PO (09:27)
[2024-09-23] MEDS: predniSONE 20 MG TABLET 40 MG PO (09:27)
[2024-09-23] MEDS: CARBIDOPA-LEVODOPA 25/100 TABLET 3 EACH PO ×3 (09:27→20:54)
[2024-09-23] MEDS: atenoloL 50 MG TABLET PO (09:27)
[2024-09-23] MEDS: MULTIVITAMIN 1 TABLET 1 TAB PO (09:28)
[2024-09-23] MEDS: FUROSEMIDE 40 MG TABLET PO (09:28)
[2024-09-23] MEDS: HEPARIN 5,000 UNIT/ML VIAL 5000 UNIT SUBCUT ×2 (09:28→20:54)
[2024-09-23] MEDS: PROPRANOLOL 10 MG TABLET 20 MG PO (09:28)
[2024-09-23] MEDS: polyethylene glycoL 3350 17 GM POWD.PACK PO (09:28)
--- NOTE | 2024-09-23 10:55 | CM.DANOTE ---
DCP Assessment Note: Pt is a 59yo male, resident of [place], is admitted for rhinovirus, hypoxia. Patient has a hx of Parkinson's Disease. Pt lives at [facility]. Pt's Primary Care Provider is Dr. Amilcar [place] MD and insurance is [facility] and [employer]. Reviewed chart and team rounds for pt's medical status and initial discharge needs. Per hospitalist and RN, pt requiring O2 currently but did not require it at baseline. At baseline, pt is nonambulatory (needed BLS transport back to [facility] during last ED visit this year). DCP met w/patient at bedside; introduced self and role. Patient was found in bed, alert and oriented, cooperative with assessment. Pt confirmed living situation at [facility]. Pt expressed preference in returning to facility when medically stable. Pt speech is impaired due to Parkinson's but did not wish for this DCP to call his son, Delvin, at this time for more information. Per [facility], pt is a current patient at [facility]. DCP called [facility] and confirmed pt is receiving care for PT, OT, and ST per PCP orders. Will need resumption of care orders upon discharge. Plan: Anticipating discharge back to [facility], possible BLS transport, when medically stable. CM team will follow closely for coordination of discharge plans. HIMA Alan Discharge Planning/Care Management CM Discharge Assessment Start: 09/23/24 10:53 Freq: Status: Active Protocol: Document 09/23/24 10:53 MW (Rec: 09/23/24 10:55 MW [id number]) Discharge Planning Assessment Assigned Policy Manager RDORIGUEZ Forrest DPOA/Assigned Designee Name José Luis Hargrove Contact Information [phone] Advance Directives? Yes Advance Directives on File Yes: POLST on file History Provided By Patient Has Patient been admitted in last 30 No days? Prior Living Arrangements Assisted Living Comment [facility] Household Members none Type of transporation used prior to Relies on Others admit Facility Name Admitted From: [facility] Willing to Return to Facility? Yes Independent with ADL's No Is patient alert and oriented? Yes Caregiver for Another No Barriers to Discharge No Discharge Plan Assisted Living Facility Referrals Initiated None needed Medicare Choice List Provided No Whiteboard Updated in Patient Room with Yes name and ext. # of Policy Manager Comment [phone] Review Status In Process Please Provide Date Initial DC 09/23/24 Assessment Was Performed Next Review Type Continued Stay Review
--- NOTE | 2024-09-23 12:49 | P.HP_ITS ---
History of Present Illness History of Present Illness Date Patient Seen: 09/23/24 Time Patient Seen: 10:30 Chief complaint: SOB Narrative: Per overnight provider: 59-year-old male with past medical history of hypertension, BPH and Parkinson's disease presents with complain of shortness of breath and cough. Per the patient's report, the patient was seen here yesterday with similar symptoms. The patient was found to have rhinovirus and was stable to be discharged back to his assisted living. However when the patient arrived to his assisted living, the patient has increasing shortness of breath, wheezing and coughing. The patient state that his cough was only mildly productive. The patient also admit to have some subjective fever but denies any chills, nausea, vomiting or diarrhea. In our ER, the patient was hemodynamically stable. The patient was requiring 2L of oxygen per nasal cannula. Chest x-ray shows scatter pattern of possible atypical pneumonia/bronchitis/pulmonary edema. The patient was given IV Solumedrol, duonebs and Azithromycin. BNP was in the 200s. Due to possible pulmonary edema on x-ray patient was given 20 mg of IV lasix . Interval history: Patient feels improved today with improved breathing. Continues to have cough. Does not report difficulties with swallowing, denies cough after meals. [facility] Medical History Constipation BPH (benign prostatic hyperplasia) Hypertension Parkinsons disease Social History household members: none Smoking Status: Unknown if ever smoked Meds Home Medications and Allergies Home Medications Medication Instructions Recorded Confirmed Type acetaminophen 325 mg tablet 650 mg PO Q4HR PRN pain 09/22/24 09/22/24 History atenolol 50 mg tablet 50 mg PO DAILY 09/22/24 09/22/24 History carbidopa 25 mg-levodopa 100 mg 3 tab PO 3XD 09/22/24 09/23/24 History tablet cholecalciferol (vitamin D3) 25 25 mcg PO DAILY vit b deficiency 09/22/24 09/22/24 History mcg (1,000 unit) tablet (Vitamin D3) finasteride 5 mg tablet 5 mg PO DAILY BPH 09/22/24 09/22/24 History fluticasone propionate 50 2 spray intranasal DAILY allergies 09/22/24 09/22/24 History mcg/actuation nasal spray,suspension multivitamin 1 tab PO DAILY 09/22/24 09/22/24 History polyethylene glycol 3350 17 17 g PO DAILY 09/22/24 09/22/24 History gram/dose oral powder propranolol 20 mg tablet 20 mg PO DAILY 09/22/24 09/22/24 History trazodone 50 mg tablet 25 mg PO BEDTIME PRN Insomnia 09/22/24 09/22/24 History albuterol sulfate 90 mcg/actuation 2 puff inhalation Q2HR PRN 09/23/24 09/23/24 History aerosol inhaler Shortness Of Breath tamsulosin 0.4 mg capsule 0.4 mg PO BEDTIME 09/23/24 09/23/24 History Allergies Allergy/AdvReac Type Severity Reaction Status Date / Time No Known Drug Allergies Allergy Verified 07/14/24 15:57 Review of Systems Review of Systems Narrative: All other systems reviewed with the patient and are negative unless otherwise stated. Exam Vital Signs (past 8 hours): - 09/23/24 07:00 09/23/24 08:52 09/23/24 11:00 Temperature 96.6 F L 97 F L Pulse Rate 64 71 65 Respiratory Rate 20 20 18 Blood Pressure 131/74 124/67 Pulse Oximetry 97 93 91 Oxygen Delivery Method Oximask Oxygen Flow Rate 3 3 2 Fraction of Inspired Oxygen 21 SaO2/FiO2 Ratio 442 Oxygen Delivery Method Oximask Oxygen Flow Rate 2 Narrative Exam Narrative: General:? Patient is well developed and well nourished, in no distress at this time. HEENT:? Normocephalic, atraumatic, extraocular muscles intact, oral pharynx is clear and mucous membranes are moist. Neck: supple and symmetric, trachea is midline, no cervical adenopathy. Negative for JVD Chest:? Normal AP diameter and contour without kyphoscoliosis, no tachypnea, equal chest rise bilaterally. Lungs:? CTA b/l no wheezing rhonchi or rales. Cardio:?RRR no m/r/g. Abdomen: S NT ND. No CVA tenderness. Musculoskeletal:? Muscle strength and tone are equal within normal limits, no deformity. Extremities: No edema or joint effusions. No cyanosis or clubbing. Skin:? Pale,? Warm to touch,dry and intact without rashes, ulcerations or petechiae.? Neuro:? Alert and orientated x3,? sensation to touch intact in all extremities, no gross deficits noted of cranial nerves. Psych:? Patient has a well-kept appearance, appropriate affect, mental status attitude thought context and judgment are appropriate for age. Objective Labs 09/23/24 05:12 09/23/24 05:12 Labs: Laboratory Results - last 24 hr 09/22/24 09/23/24 18:51 05:12 WBC 10.5 8.8 RBC 4.76 4.70 Hgb 13.8 13.5 Hct 40.2 L 39.5 L MCV 84.6 84.1 MCH 29.0 28.7 MCHC 34.2 34.1 RDW 13.3 13.5 Plt Count 249 267 Neut % (Auto) 73.8 88.4 H Lymph % (Auto) 12.4 L 9.8 L Campbell % (Auto) 8.8 1.4 L Eos % (Auto) 4.7 H 0.2 L Baso % (Auto) 0.3 0.2 Neut # (Auto) 7800 H 7800 H Lymph # (Auto) 1300 900 L Campbell # (Auto) 900 100 Eos # (Auto) 500 H 0 Baso # (Auto) 0 0 PT 13.0 H INR 1.1 Sodium 137 138 Potassium 4.4 4.0 Chloride 102 103 Carbon Dioxide 28 28 BUN 18 20 Creatinine 0.75 0.64 L Estimated GFR > 60 > 60 BUN/Creatinine Ratio 24.0 H 31.3 H Glucose 137 H 186 H Lactate 1.4 Calcium 9.0 9.1 Total Bilirubin 0.5 AST 27 ALT 13 Alkaline Phosphatase 117 Troponin I < 0.012 NT-Pro-B Natriuret Pep 288 H Total Protein 7.2 Albumin 4.1 Globulin 3.1 Albumin/Globulin Ratio 1.3 Assessment & Plan Assessment & Plan narrative: Acute respiratory failure with hypoxemia, possible superimposed bacterial pneumonia - Patient currently on 2L of O2. Likely from above. Treat as above and wean down O 2 as able. - suspect viral pneumonia, no leukocytosis but possible bacterial infection. Will continue augmentin for possible PNA. - no history of COPD or asthma, inhalers were recently prescribed. - stop prednisone. - no respiratory panel has been sent, ordered. - okay to continue albuterol as needed. - check echo given CXR appearance and trace b/l edema to rule out cardiac etiology. ProBNP is mildly elevated at 288. - wean from O2 as tolerated, goal O2 90-96% on supplemental therapy. He did desaturate early this afternoon after about 10 minutes off O2 to the upper 80s. - consider HEAD OF HISTORY if signs of aspiration, though unlikely based on history at this time. BPH - resume home flomax. Hypertension - - stop home atenolol as he is also on propranolol. Multisystem atrophy, chronic. - continue home sinemet DVT prophylaxis hep SQ Code: DNR, surrogate is patient's son DVT: Lovenox daily I have utilized all available immediate resources to obtain, update, or review the patient's current medications. Dispo: patient admitted under inpatient status. Likely return to assisted living ([place]). Wheelchair use at baseline Additional history obtained via discussions with the overnight provider, bedside RN. These discussions contributed to the creation of the above assessment and plan. I have reviewed patient's presenting documentation, labs, and imaging personally. Time-Based Coding :: [TOTAL MINUTES] spent with patient and on the chart (including review of chart, obtaining history, exam, reviewing outside data, placing orders, documenting exam and treatment plan, and counseling patient) on [DATE].
--- NOTE | 2024-09-23 13:04 | DI.ECHO.S_ITS ---
[facility] : : [address] : : [place] : : [id number] : : Phone: [phone] Echocardiogram Report + + :Name: MONY MONET Study Date: 09/23/2024 Height: 70 in : :[facility] ReadingLocation: Weight: 191 lb : : Gender: Male BSA: 2.0 m2 : :: 1965 Age: 59 yrs BP: 140/76 mmHg: :Reason For Study: HYPOXIA, SHORTNESS OF BREATH : :Ordering Physician: KIKE, : :ERICA SABA Performed By: Lalitha Ochoa : :Referring: ERICA STOKES : + + Interpretation Summary The left ventricle is normal in size and wall thickness. The ejection fraction is estimated to be 70-75%. There are no obvious focal wall motion abnormalities noted but poor endocardial definition reduces the sensitivity for the detection of such. Diastolic parameters suggest probable normal left ventricular diastolic function and normal filling pressures. The right ventricle is normal in size and function. Pulmonary artery pressures cannot be estimated because of the lack of a measurable TR jet velocity. The left atrial size is normal. There is no significant valvular heart disease. The aortic root is normal size. Procedure: A two-dimensional transthoracic echocardiogram with color flow and Doppler was performed. The study quality was technically difficult. There is no prior echocardiogram noted for this patient. The patient was in sinus rhythm with heart rates between 65-76 bpm during the exam. Left Ventricle: The left ventricle is normal in size and wall thickness. The ejection fraction is estimated to be 70-75%. There are no obvious focal wall motion abnormalities noted but poor endocardial definition reduces the sensitivity for the detection of such. Diastolic parameters suggest probable normal left ventricular diastolic function and normal filling pressures. Right Ventricle: The right ventricle is normal in size and function. Atria: The left atrial size is normal. Right atrial size is normal. There is no Doppler evidence for an interatrial shunt. Mitral Valve: The mitral valve is normal in structure and function. There is mild mitral annular calcification. There is no mitral regurgitation noted. Aortic Valve: The aortic valve opens well. There is no aortic valve stenosis. No aortic regurgitation is present. Tricuspid Valve: The tricuspid valve is not well visualized, but is grossly normal. There is trace tricuspid regurgitation. Pulmonary artery pressures cannot be estimated because of the lack of a measurable TR jet velocity. Pulmonic Valve: The pulmonic valve is not well visualized. There is no significant valvular heart disease. Great Vessels: The aortic root is normal size. The ascending aorta could not be visualized. The IVC is of normal diameter and collapses greater than 50% with a sniff. This suggests a low right atrial pressure of 3 mm Hg. Pericardium/ Pleura The pericardium appears normal. There is no pleural effusion. MMode/2D Measurements & Calculations LVIDd: 4.7 cm LVOT diam: 2.0 cm LVIDs: 3.3 cm Ao root diam: 3.4 cm FS: 30.6 % Ao Arch Diam (Prox Trans): 3.0 cm IVSd: 0.92 cm LVPWd: 1.0 cm LV sanabria. diameter/BSA (cm/m^2): 2.3 LV sys. diameter/BSA (cm/m^2): 1.6 LA A2 area: 13.8 cm2 RA long axis: 4.8 cm LA A4 area: 15.5 cm2 RA area: 15.2 cm2 LA length (vol): 4.9 cm RA vol: 40.4 ml LA vol: 37.3 ml RA : 19.7 ml/m2 LA vol index: 18.2 ml/m2 IVC diam: 1.6 cm RVD1 (basal): 3.9 cm TAPSE: 2.4 cm Doppler Measurements & Calculations Ao V2 max: 134.6 cm/sec LVOT Max Austyn: 109.4 cm/sec Ao V2 mean: 102.6 cm/sec LV V1 max P.8 mmHg Ao max P.2 mmHg LV V1 VTI: 24.6 cm Ao mean P.5 mmHg TERESA(I,D): 2.8 cm2 Ao V2 VTI: 27.3 cm TERESA(V,D): 2.6 cm2 sev ratio: 0.90 TERESA indexed to BSA (cm^2/m^2): 1.4 MV E max austyn: 84.1 cm/sec SV(LVOT): 77.7 ml MV A max austyn: 58.0 cm/sec MV E/A: 1.4 Med Peak E' Austyn: 6.9 cm/sec E/E' med: 12.1 Lat Peak E' Austyn: 8.3 cm/sec E/E' lat: 10.1 E/e' average: 11.1 MV dec time: 0.23 sec Reading Physician:05:12 PM
--- NOTE | 2024-09-23 13:23 | PM.PN.1 ---
Subjective Subjective Interval history: Per overnight provider: 59-year-old male with past medical history of hypertension, BPH and Parkinson's disease presents with complain of shortness of breath and cough. Per the patient's report, the patient was seen here yesterday with similar symptoms. The patient was found to have rhinovirus and was stable to be discharged back to his assisted living. However when the patient arrived to his assisted living, the patient has increasing shortness of breath, wheezing and coughing. The patient state that his cough was only mildly productive. The patient also admit to have some subjective fever but denies any chills, nausea, vomiting or diarrhea. In our ER, the patient was hemodynamically stable. The patient was requiring 2L of oxygen per nasal cannula. Chest x-ray shows scatter pattern of possible atypical pneumonia/bronchitis/pulmonary edema. The patient was given IV Solumedrol, duonebs and Azithromycin. BNP was in the 200s. Due to possible pulmonary edema on x-ray patient was given 20 mg of IV lasix . Interval history: Patient feels improved today with improved breathing. Continues to have cough. Does not report difficulties with swallowing, denies cough after meals. Exam Vital Signs (past 8 hours): - 09/23/24 07:00 09/23/24 08:52 09/23/24 11:00 Temperature 96.6 F L 97 F L Pulse Rate 64 71 65 Respiratory Rate 20 20 18 Blood Pressure 131/74 124/67 Pulse Oximetry 97 93 91 Oxygen Delivery Method Oximask Oxygen Flow Rate 3 3 2 Fraction of Inspired Oxygen 21 SaO2/FiO2 Ratio 442 Oxygen Delivery Method Oximask Oxygen Flow Rate 2 Narrative Exam Narrative: General:? Mildly ill appearing male, pale, no acute distress eating breakfast HEENT:? Normocephalic, atraumatic, extraocular muscles intact, oral pharynx is clear and mucous membranes are moist. Neck: supple and symmetric, trachea is midline, no cervical adenopathy. Chest:? Normal AP diameter and contour without kyphoscoliosis, no tachypnea, equal chest rise bilaterally. Lungs:? Mild expiratory wheeze, no rhonchi or rales. Cardio:?RRR no m/r/g. Abdomen: S NT ND. Musculoskeletal:? Muscle strength and tone are equal within normal limits, no deformity. Extremities: trace bilateral LE edema. No joint effusions. No cyanosis or clubbing. Skin:? Pale,? Warm to touch,dry and intact without rashes, ulcerations or petechiae.? Neuro:? Alert and orientated x3,?soft spoken, slight tremor Objective Labs 09/23/24 05:12 09/23/24 05:12 Labs: Laboratory Results - last 24 hr 09/22/24 09/23/24 18:51 05:12 WBC 10.5 8.8 RBC 4.76 4.70 Hgb 13.8 13.5 Hct 40.2 L 39.5 L MCV 84.6 84.1 MCH 29.0 28.7 MCHC 34.2 34.1 RDW 13.3 13.5 Plt Count 249 267 Neut % (Auto) 73.8 88.4 H Lymph % (Auto) 12.4 L 9.8 L [place] % (Auto) 8.8 1.4 L Eos % (Auto) 4.7 H 0.2 L Baso % (Auto) 0.3 0.2 Neut # (Auto) 7800 H 7800 H Lymph # (Auto) 1300 900 L [place] # (Auto) 900 100 Eos # (Auto) 500 H 0 Baso # (Auto) 0 0 PT 13.0 H INR 1.1 Sodium 137 138 Potassium 4.4 4.0 Chloride 102 103 Carbon Dioxide 28 28 BUN 18 20 Creatinine 0.75 0.64 L Estimated GFR > 60 > 60 BUN/Creatinine Ratio 24.0 H 31.3 H Glucose 137 H 186 H Lactate 1.4 Calcium 9.0 9.1 Total Bilirubin 0.5 AST 27 ALT 13 Alkaline Phosphatase 117 Troponin I < 0.012 NT-Pro-B Natriuret Pep 288 H Total Protein 7.2 Albumin 4.1 Globulin 3.1 Albumin/Globulin Ratio 1.3 PFSH Medical History Constipation BPH (benign prostatic hyperplasia) Hypertension Parkinsons disease Social History household members: none Smoking Status: Unknown if ever smoked Assessment & Plan Assessment & Plan narrative: Acute respiratory failure with hypoxemia, possible superimposed bacterial pneumonia on presumed viral pneumonia. ?- Patient currently on 2L of O2. Likely from above. Treat as above and wean down O 2 as able. ?- suspect viral pneumonia, no leukocytosis but possible bacterial infection. Will continue augmentin for possible PNA. ?- no history of COPD or asthma, inhalers were recently prescribed. ?- stop prednisone. ?- no respiratory panel has been sent, ordered. ?- okay to continue albuterol as needed. ?- check echo given CXR appearance and trace b/l edema to rule out cardiac etiology. ProBNP is mildly elevated at 288. ?- wean from O2 as tolerated, goal O2 90-96% on supplemental therapy. He did desaturate early this afternoon after about 10 minutes off O2 to the upper 80s. ?- consider MD DO [facility] if signs of aspiration, though unlikely based on history at this time. BPH - resume home flomax. Hypertension - ?- stop home atenolol as he is also on propranolol. Multisystem atrophy, chronic. ?- continue home sinemet DVT prophylaxis hep SQ Code: DNR, surrogate is patient's son I have utilized all available immediate resources to obtain, update, or review the patient's current medications. Time-Based Coding :: [TOTAL MINUTES] spent with patient and on the chart (including review of chart, obtaining history, exam, reviewing outside data, placing orders, documenting exam and treatment plan, and counseling patient) on [DATE].
[2024-09-23] MEDS: AMOXICILLIN/CLAV 875/125 MG 1 TAB PO ×2 (13:29→20:54)
[2024-09-23] MEDS: TAMSULOSIN 0.4 MG CAPSULE PO (20:54)
[2024-09-23] MEDS: TRAZODONE 50 MG TABLET 25 MG PO (22:51)
[2024-09-24 03:00] VITALS: BP 138/66; PULSE 69; RESP 20; TEMP 36.2; O2SAT 93
[2024-09-24 06:02] LABS: Add Manual Diff / Slide Review NO; Basophils Absolute Auto 0 /uL (0-100); Basophils Percent Auto 0.1 % (0-2); Eosinophils Absolute Auto 0 /uL (0-450); Eosinophils Percent Auto 0.1 % (2-4); Hematocrit 36.8 % (41-53); Hemoglobin 12.6 g/dL (13.5-17.5); Lymphocytes Absolute Auto 800 /uL (1100-4500); Lymphocytes Percent Auto 7.6 % (25-40); Mean Corpuscular HGB Conc 34.3 % (30-36); Mean Corpuscular Hemoglobin 28.7 PG (26-34); Mean Corpuscular Volume 83.7 fL (80-100); Monocytes Absolute Auto 600 /uL (0-900); Monocytes Percent Auto 5.5 % (3-14); Neutrophils Absolute Auto 8900 /uL (1500-7000); Neutrophils Percent Auto 86.7 % (50-75); Platelet Count 266 X10^3/uL (150-400); Red Cell Distribution Width 13.1 % (11.6-14.8); White Blood Cell Count 10.2 X10^3/uL (4.5-11.0)
[2024-09-24 06:18] LABS: BUN Creatinine Ratio 41.4 (6-22); Blood Urea Nitrogen 29 mg/dL (9-20); Calcium 8.7 mg/dL (8.4-10.2); Carbon Dioxide 29 mmol/L (22-32); Chloride 103 mmol/L (98-107); Estimated Glomerular Filt Rate > 60 mL/min (>60); Glucose 130 mg/dL (80-110); HEMOLYSIS < 15 (0-50); Magnesium 2.1 mg/dL (1.6-2.3); Potassium 3.6 mmol/L (3.4-5.1); Sodium 138 mmol/L (137-145)
[2024-09-24 07:00] VITALS: BP 113/58; PULSE 60; RESP 20; TEMP 36.3; O2SAT 91
[2024-09-24] MEDS: FINASTERIDE 5 MG TABLET PO (09:00)
[2024-09-24] MEDS: HEPARIN 5,000 UNIT/ML VIAL 5000 UNIT SUBCUT ×2 (09:00→20:45)
[2024-09-24] MEDS: BENZONATATE 100 MG CAPSULE PO ×2 (09:00→20:45)
[2024-09-24] MEDS: CHOLECALCIFEROL (VITAMIN D3) 1,000 UNIT TABLET 1000 UNIT PO (09:00)
[2024-09-24] MEDS: FUROSEMIDE 40 MG TABLET PO (09:00)
[2024-09-24] MEDS: AMOXICILLIN/CLAV 875/125 MG 1 TAB PO ×2 (09:00→20:44)
[2024-09-24] MEDS: CARBIDOPA-LEVODOPA 25/100 TABLET 3 EACH PO ×3 (09:00→20:44)
[2024-09-24] MEDS: MULTIVITAMIN 1 TABLET 1 TAB PO (09:00)
[2024-09-24] MEDS: polyethylene glycoL 3350 17 GM POWD.PACK PO (09:01)
[2024-09-24 09:02] VITALS: O2SAT 93
[2024-09-24] MEDS: FLUTICASONE 120 SPRAY/16 GM SPRAY.SUSP NASAL (09:14)
[2024-09-24 11:00] VITALS: BP 112/63; PULSE 75; RESP 20; TEMP 36.6; O2SAT 90
--- NOTE | 2024-09-24 13:15 | CM.DPC ---
DCP Cont: Per MD, pt's Echo was normal but remains on oxygen and not yet medically stable to d/c until weaned off O2 and sats normal, possible d/c Sun or Mon. GUALBERTO faxed updated MD prog note to [facility] to review. Plan: GUALBERTO to follow for plan of d/c back to [facility] when medically stable. RODRIGUEZ Arias
--- NOTE | 2024-09-24 14:45 | P.PN_ITS ---
Subjective Subjective Interval history: Per overnight provider: 59-year-old male with past medical history of hypertension, BPH and Parkinson's disease presents with complain of shortness of breath and cough. Per the patient's report, the patient was seen here yesterday with similar symptoms. The patient was found to have rhinovirus and was stable to be discharged back to his assisted living. However when the patient arrived to his assisted living, the patient has increasing shortness of breath, wheezing and coughing. The patient state that his cough was only mildly productive. The patient also admit to have some subjective fever but denies any chills, nausea, vomiting or diarrhea. In our ER, the patient was hemodynamically stable. The patient was requiring 2L of oxygen per nasal cannula. Chest x-ray shows scatter pattern of possible atypical pneumonia/bronchitis/pulmonary edema. The patient was given IV Solumedrol, duonebs and Azithromycin. BNP was in the 200s. Due to possible pulmonary edema on x-ray patient was given 20 mg of IV lasix . Interval history: Feels a bit worse today, oxygen up a bit to 1.5 L Exam Vital Signs (past 8 hours): - 09/24/24 07:00 09/24/24 08:00 09/24/24 09:02 Temperature 97.3 F L Pulse Rate 60 Respiratory Rate 20 Blood Pressure 113/58 L Pulse Oximetry 91 93 Oxygen Delivery Method Nasal Cannula Nasal Cannula Oxygen Flow Rate 1.5 1.5 09/24/24 11:00 Temperature 97.8 F Pulse Rate 75 Respiratory Rate 20 Blood Pressure 112/63 Pulse Oximetry 90 L Oxygen Delivery Method Oxygen Flow Rate 1.5 Fraction of Inspired Oxygen 21 SaO2/FiO2 Ratio 442 Oxygen Delivery Method Nasal Cannula Oxygen Flow Rate 1.5 Narrative Exam Narrative: General:? Mildly ill appearing male, pale, no acute distress eating breakfast HEENT:? Normocephalic, atraumatic, extraocular muscles intact, oral pharynx is clear and mucous membranes are moist. Neck: supple and symmetric, trachea is midline, no cervical adenopathy. Chest:? Normal AP diameter and contour without kyphoscoliosis, no tachypnea, equal chest rise bilaterally. Lungs:? Mild expiratory wheeze, no rhonchi or rales. Cardio:?RRR no m/r/g. Abdomen: S NT ND. Musculoskeletal:? Muscle strength and tone are equal within normal limits, no deformity. Extremities: trace bilateral LE edema. No joint effusions. No cyanosis or clubbing. Skin:? Pale,? Warm to touch,dry and intact without rashes, ulcerations or petechiae.? Neuro:? Alert and orientated x3,?soft spoken, slight tremor Objective Labs 09/24/24 05:05 09/24/24 05:05 Labs: Laboratory Results - last 24 hr 09/24/24 05:05 WBC 10.2 RBC 4.40 L Hgb 12.6 L Hct 36.8 L MCV 83.7 MCH 28.7 MCHC 34.3 RDW 13.1 Plt Count 266 Neut % (Auto) 86.7 H Lymph % (Auto) 7.6 L [place]anan % (Auto) 5.5 Eos % (Auto) 0.1 L Baso % (Auto) 0.1 Neut # (Auto) 8900 H Lymph # (Auto) 800 L [place] # (Auto) 600 Eos # (Auto) 0 Baso # (Auto) 0 Sodium 138 Potassium 3.6 Chloride 103 Carbon Dioxide 29 BUN 29 H Creatinine 0.70 Estimated GFR > 60 BUN/Creatinine Ratio 41.4 H Glucose 130 H Calcium 8.7 Magnesium 2.1 PFSH Medical History Constipation BPH (benign prostatic hyperplasia) Hypertension Parkinsons disease Social History household members: none Smoking Status: Unknown if ever smoked Assessment & Plan Assessment & Plan narrative: Acute respiratory failure with hypoxemia, possible superimposed bacterial pneumonia on presumed viral pneumonia. Possible asthma excaerbation or reactive airway ?- Patient currently on 1.5L of O2. Treat as above and wean down O 2 as able. ?- suspect viral pneumonia, no leukocytosis but possible bacterial infection. Will continue augmentin for possible PNA. ?- no history of COPD or asthma, inhalers were recently prescribed. ?- initially stopped prednisone, given slight worsening today will resume prednisone for 4 days. ?- no respiratory panel has been sent, ordered, still not obtained. ?- okay to continue albuterol as needed. ?- TTE was unremarkable with no systolic or diastolic dysfunction. ?- wean from O2 as tolerated, goal O2 90-96% on supplemental therapy. ?- consider INVESTIGATOR VICE if signs of aspiration, though unlikely based on history at this time. BPH - resume home flomax. Hypertension - ?- stop home atenolol as he is also on propranolol. Multisystem atrophy, chronic. ?- continue home sinemet DVT prophylaxis hep SQ Code: DNR, surrogate is patient's son I have utilized all available immediate resources to obtain, update, or review the patient's current medications. Time-Based Coding :: [TOTAL MINUTES] spent with patient and on the chart (including review of chart, obtaining history, exam, reviewing outside data, placing orders, documenting exam and treatment plan, and counseling patient) on [DATE].
[2024-09-24 15:00] VITALS: BP 122/62; PULSE 74; RESP 20; TEMP 36.1; O2SAT 91
[2024-09-24] MEDS: predniSONE 20 MG TABLET 40 MG PO (15:09)
[2024-09-24 20:00] VITALS: BP 156/71; PULSE 69; RESP 22; TEMP 36.4; O2SAT 92
[2024-09-24] MEDS: ACETAMINOPHEN 325 MG TABLET 650 MG PO (20:44)
[2024-09-24] MEDS: TAMSULOSIN 0.4 MG CAPSULE PO (20:45)
[2024-09-24 21:06] LABS: Adenovirus Not Detected (Not Detect); B. parapertussis Not Detected (Not Detecte); Bordetella pertussis Not Detected (Not Detect); Chlamydophila pneumoniae Not Detected (Not Detect); Coronavirus 229E Not Detected (Not Detect); Coronavirus HKU1 Not Detected (Not Detect); Coronavirus NL 63 Not Detected (Not Detect); Coronavirus OC43 Not Detected (Not Detect); Human Metapneumovirus Not Detected (Not Detect); Human Rhinovirus/Enterovirus Detected (Not Detect); Influenza A Not Detected (Not Detect); Influenza B Not Detected (Not Detect); Mycoplasma pneumoniae Not Detected (Not Detect); Parainfluenza Virus 1 Not Detected (Not Detect); Parainfluenza Virus 2 Not Detected (Not Detect); Parainfluenza Virus 3 Not Detected (Not Detect); Parainfluenza Virus 4 Not Detected (Not Detect); Respiratory Syncytial Virus Not Detected (Not Detect); SARS- CoV-2 Not Detected (Not Detecte)
[2024-09-25] VITALS (8 sets, daily range): BP systolic 96–152; BP diastolic 56–77; PULSE 60–71; RESP 16–22; TEMP 36.1–36.3; O2SAT 90–92
[2024-09-25 06:23] LABS: Add Manual Diff / Slide Review NO; Basophils Absolute Auto 0 /uL (0-100); Basophils Percent Auto 0.3 % (0-2); Eosinophils Absolute Auto 0 /uL (0-450); Hematocrit 37.9 % (41-53); Hemoglobin 13.1 g/dL (13.5-17.5); Lymphocytes Absolute Auto 600 /uL (1100-4500); Lymphocytes Percent Auto 9.6 % (25-40); Mean Corpuscular HGB Conc 34.6 % (30-36); Mean Corpuscular Volume 83.8 fL (80-100); Monocytes Absolute Auto 500 /uL (0-900); Monocytes Percent Auto 7.3 % (3-14); Neutrophils Absolute Auto 5500 /uL (1500-7000); Neutrophils Percent Auto 82.8 % (50-75); Platelet Count 296 X10^3/uL (150-400); Red Blood Cell Count 4.52 X10^6/uL (4.5-5.9); Red Cell Distribution Width 13.2 % (11.6-14.8); White Blood Cell Count 6.6 X10^3/uL (4.5-11.0)
[2024-09-25 06:40] LABS: BUN Creatinine Ratio 41.2 (6-22); Blood Urea Nitrogen 28 mg/dL (9-20); Calcium 8.8 mg/dL (8.4-10.2); Carbon Dioxide 29 mmol/L (22-32); Chloride 103 mmol/L (98-107); Estimated Glomerular Filt Rate > 60 mL/min (>60); Glucose 138 mg/dL (80-110); HEMOLYSIS < 15 (0-50); Magnesium 2.1 mg/dL (1.6-2.3); Sodium 137 mmol/L (137-145)
[2024-09-25] MEDS: CHOLECALCIFEROL (VITAMIN D3) 1,000 UNIT TABLET 1000 UNIT PO (09:02)
[2024-09-25] MEDS: FINASTERIDE 5 MG TABLET PO (09:02)
[2024-09-25] MEDS: CARBIDOPA-LEVODOPA 25/100 TABLET 3 EACH PO ×3 (09:02→20:22)
[2024-09-25] MEDS: FUROSEMIDE 40 MG TABLET PO (09:02)
[2024-09-25] MEDS: AMOXICILLIN/CLAV 875/125 MG 1 TAB PO ×2 (09:02→20:22)
[2024-09-25] MEDS: MULTIVITAMIN 1 TABLET 1 TAB PO (09:02)
[2024-09-25] MEDS: predniSONE 20 MG TABLET 40 MG PO (09:02)
[2024-09-25] MEDS: HEPARIN 5,000 UNIT/ML VIAL 5000 UNIT SUBCUT ×2 (09:02→20:22)
[2024-09-25] MEDS: PROPRANOLOL 10 MG TABLET 20 MG PO (09:03)
[2024-09-25] MEDS: polyethylene glycoL 3350 17 GM POWD.PACK PO (09:03)
[2024-09-25] MEDS: FLUTICASONE 120 SPRAY/16 GM SPRAY.SUSP NASAL (09:04)
--- NOTE | 2024-09-25 10:34 | PM.PN.1 ---
Subjective Subjective Interval history: Per overnight provider: 59-year-old male with past medical history of hypertension, BPH and Parkinson's disease presents with complain of shortness of breath and cough. Per the patient's report, the patient was seen here yesterday with similar symptoms. The patient was found to have rhinovirus and was stable to be discharged back to his assisted living. However when the patient arrived to his assisted living, the patient has increasing shortness of breath, wheezing and coughing. The patient state that his cough was only mildly productive. The patient also admit to have some subjective fever but denies any chills, nausea, vomiting or diarrhea. In our ER, the patient was hemodynamically stable. The patient was requiring 2L of oxygen per nasal cannula. Chest x-ray shows scatter pattern of possible atypical pneumonia/bronchitis/pulmonary edema. The patient was given IV Solumedrol, duonebs and Azithromycin. BNP was in the 200s. Due to possible pulmonary edema on x-ray patient was given 20 mg of IV lasix . Interval history: Slightly improved after steroids started again yesterday. Exam Vital Signs (past 8 hours): - 09/25/24 04:00 09/25/24 08:00 09/25/24 09:14 Temperature 97.0 F L 97.1 F L Pulse Rate 64 63 Respiratory Rate 20 20 Blood Pressure 134/65 142/76 H Pulse Oximetry 92 91 92 Oxygen Delivery Method Nasal Cannula Oxygen Flow Rate 1 1 1 Fraction of Inspired Oxygen 21 SaO2/FiO2 Ratio 442 Oxygen Delivery Method Nasal Cannula Oxygen Flow Rate 1 Narrative Exam Narrative: General:? Mildly ill appearing male, pale, no acute distress eating breakfast HEENT:? Normocephalic, atraumatic, extraocular muscles intact, oral pharynx is clear and mucous membranes are moist. Neck: supple and symmetric, trachea is midline, no cervical adenopathy. Chest:? Normal AP diameter and contour without kyphoscoliosis, no tachypnea, equal chest rise bilaterally. Lungs:? Mild expiratory wheeze, no rhonchi or rales. Cardio:?RRR no m/r/g. Abdomen: S NT ND. Musculoskeletal:? Muscle strength and tone are equal within normal limits, no deformity. Extremities: trace bilateral LE edema. No joint effusions. No cyanosis or clubbing. Skin:? Pale,? Warm to touch,dry and intact without rashes, ulcerations or petechiae.? Neuro:? Alert and orientated x3,?soft spoken, slight tremor Objective Labs 09/25/24 05:30 09/25/24 05:30 Labs: Laboratory Results - last 24 hr 09/24/24 09/25/24 19:46 05:30 WBC 6.6 RBC 4.52 Hgb 13.1 L Hct 37.9 L MCV 83.8 MCH 29.0 MCHC 34.6 RDW 13.2 Plt Count 296 Neut % (Auto) 82.8 H Lymph % (Auto) 9.6 L [place] % (Auto) 7.3 Eos % (Auto) 0.0 L Baso % (Auto) 0.3 Neut # (Auto) 5500 Lymph # (Auto) 600 L [place] # (Auto) 500 Eos # (Auto) 0 Baso # (Auto) 0 Sodium 137 Potassium 4.0 Chloride 103 Carbon Dioxide 29 BUN 28 H Creatinine 0.68 Estimated GFR > 60 BUN/Creatinine Ratio 41.2 H Glucose 138 H Calcium 8.8 Magnesium 2.1 Chlamy pneumoniae PCR Not detected Adenovirus (PCR) Not detected B. pertussis DNA (PCR) Not detected B.parapertussis DNA PCR Not detected Coronavirus OC43 (PCR) Not detected Coronavirus HKU1 (PCR) Not detected Coronavirus 229E (PCR) Not detected SARS-CoV-2 (PCR) Not detected Coronavirus NL63 (PCR) Not detected Human Metapneumovir PCR Not detected Influenza Type A (PCR) Not detected Influenza Type B (PCR) Not detected M. pneumoniae (PCR) Not detected Parainfluenza 1 (PCR) Not detected Parainfluenza 2 (PCR) Not detected Parainfluenza 3 (PCR) Not detected Parainfluenza 4 (PCR) Not detected RSV (PCR) Not detected Entero/Rhino (PCR) Detected H [facility] Medical History Constipation BPH (benign prostatic hyperplasia) Hypertension Parkinsons disease Social History household members: none Smoking Status: Unknown if ever smoked Assessment & Plan Assessment & Plan narrative: Acute respiratory failure with hypoxemia, possible superimposed bacterial pneumonia on presumed viral pneumonia. Possible asthma excaerbation or reactive airway ?- Patient currently on 1L of O2. Treat as above and wean down O 2 as able. ?- suspect viral pneumonia, no leukocytosis but possible bacterial infection. Will continue augmentin for possible PNA. ?- no history of COPD or asthma, inhalers were recently prescribed. ?- initially stopped prednisone, but restarted with worsening yesterday. Continue prednisone x5 day course now. ?- respiratory panel positive for rhinovirus ?- okay to continue albuterol as needed. ?- TTE was unremarkable with no systolic or diastolic dysfunction. ?- wean from O2 as tolerated, goal O2 90-96% on supplemental therapy. ?- consider SENIOR CAPITAL MARKETS SPECIALIST if signs of aspiration, if still on O2 tomorrow will evaluate with speech BPH - resume home flomax. Hypertension - ?- stop home atenolol as he is also on propranolol. Multisystem atrophy, chronic. ?- continue home sinemet DVT prophylaxis hep SQ Code: DNR, surrogate is patient's son I have utilized all available immediate resources to obtain, update, or review the patient's current medications. Time-Based Coding :: [TOTAL MINUTES] spent with patient and on the chart (including review of chart, obtaining history, exam, reviewing outside data, placing orders, documenting exam and treatment plan, and counseling patient) on [DATE].
--- NOTE | 2024-09-25 11:52 | PT.IIE ---
Current Diagnoses Chronic obstructive pulmonary disease with (acute) exacerbation (09/22/24) Medical History (Last Reviewed 09/22/24 @ 22:08 by Han Coy DO) BPH (benign prostatic hyperplasia) Constipation Hypertension Parkinsons disease Physical Therapy Inpatient Evaluation/Re-Eval M1 PT/OT-IP Prior Functional Status Start: 09/25/24 10:44 Freq: NEEDED Status: Active Protocol: Document 09/25/24 10:45 MB (Rec: 09/25/24 11:51 MB [id number]) Medical Review Prior Functional Status Medical History Reviewed Yes Communication Unsure baseline diet and it is possible pt may have aspiration issue, speech consult for next date Mobility and Gait Pt lives at [facility] and he has a hospital bed, RW and w/c and it is unclear how much assistance he has at baseline: pt makes a good effort to communicate but speech is challenging from multisystem atrophy and ORDONEZ and wet sounding breathing today Activities of Daily Living and IADL's See above Social History Household Members none Living Arrangements Assisted Living Number of Stairs To Enter/Railing? Accessible entrance into [facility] Additional Social History Comment Pt has accessible bathing and toileting options at [facility] and see above about DME reports, it is difficult to understand pt today though he make a great effort with PT despite communication challenging and wet sounding coughs/dyspnea today. He communicates need for bed sanchez but has bowel incontinence before nsg and PT can get him bed sanchez, condom cath today M2 PT-IP Current Condition Start: 09/25/24 10:44 Freq: NEEDED Status: Active Protocol: Document 09/25/24 10:45 MB (Rec: 09/25/24 11:51 MB [id number]) Physical Therapy Current Condition Current Condition Evaluation Date 09/25/24 Treatment Diagnosis ARF and PNA M3 PT-IP Subjective Start: 09/25/24 10:44 Freq: NEEDED Status: Active Protocol: Document 09/25/24 10:45 MB (Rec: 09/25/24 11:51 MB [id number]) Subjective Physical Therapy Visit Type Type Initial Evaluation Visit Start Time 10:45 Visit Stop Time 11:20 Number of PRINCIPAL STRATEGIST Visits 0 Physical Therapy Visit Comments Patient Comments Pt is able to communicate need for bed sanchez and he is also agreeable to PT Therapy Pain Assessment Pain When Pain Assessed At Rest Pain Present Pain Present Denied Pain M4 PT-IP Mobility and Gait Start: 09/25/24 10:44 Freq: NEEDED Status: Active Protocol: Document 09/25/24 10:45 MB (Rec: 09/25/24 11:51 MB [id number]) PT-Bed Mobility Assessment Rolling Level of Assist Maximal Assistance,1 Person Assistance Supine to Sit Supine to Sit Maximum Assistance,1 Person Assistance,Head of Bed Elevated,Bedrails Scooting Scooting to Edge of Bed Maximum Assistance PT-Transfer Assessment Sit to and From Stand Sit to and from Stand Maximum Assistance,1 Person Assistance,Use of Upper Extremities Equipment Transfer Assistive Device Gait Belt,Front Wheeled Walker Orthotic/Prosthetic Devices or Brace: No Transfers Transfer Destination Chair Transfer Technique Stand Step Pivot Transfer Ability Level of Assist Maximum Assistance,2 Person Assistance,Use of Upper Extremities Comments Mobility Comments Nsg assist for hygiene after bowel incontinence and to change condom cath and PT assists with rolling: pt initiates slowly and uses bed rail and HOB and PT assists to fully get to side to help with hygiene. Pt also initiates getting up to sitting with HOB increased and use of rail and he initiates scooting and PT does have to provide max A to complete the task. O2 sats decrease to 89% transiently when bed is flat on RA but usually stay in the low 90s and increase to 95% once sitting upright PT-Balance Assessment Sitting Balance and Reactions Static Sitting Balance Ability Fair Dynamic Sitting Balance Ability Poor Standing Balance and Reactions Static Standing Balance Ability Poor Dynamic Standing Balance Ability Poor Device Used RW M5 PT-IP Objective Assessments Start: 09/25/24 10:44 Freq: NEEDED Status: Active Protocol: Document 09/25/24 10:45 MB (Rec: 09/25/24 11:51 MB [id number]) Orientation Orientation/Cognition Level of Alertness Alert Orientation Name,Age,Birthday,Year,Place Safety Awareness Decreased Safety Awareness Memory Description No Deficits Noted Comments Pt has communication barriers from [facility] but it does not appear that he is cognitively impaired, may benefit from more formal cognitive assessment from OT Gross Range of Motion Upper Extremity ROM Assessment Bilaterally Impaired Lower Extremity ROM Assessment Bilaterally Impaired Strength Upper Extremity Strength Assessment Bilaterally Impaired Lower Extremity Strength Assessment Bilaterally Impaired Comments Strength Comments Limited range and strength all joints and pt does not tolerate formal assessment today given acute respiratory illness and great effort he puts into log rolling, getting to EOB and up to walker and chair today Coordination Assessment Gross Coordination Gross Coordination Impaired Sensation Assessment Comments Sensation Comments Not tested today Other Assessments Other Other Assessments Increased flexor tone in general, mild, and may be from current decreased mobility M7 PT-IP Assessment and Plan Start: 09/25/24 10:44 Freq: NEEDED Status: Active Protocol: Document 09/25/24 10:45 MB (Rec: 09/25/24 11:51 MB [id number]) PT Summary Assessment and Plan Potential Rehabilitation Potential Fair Status of Condition at Evaluation Evolving Summary Impairments ROM,Strength,Balance, Coordination,Bed Mobility, Transfers,Gait,Activity Tolerance Progress Towards Goals Progressing Toward Goals,Slow Progress due to Medical Issues Assessment Summary Pt is a 59 y/o male who lives at [facility] and who has a history of multisystem atrophy . He gets up to walker and also w/c there, from what PT can gather from pt and SW today. He is agreeable to PT, mobility and OOB today and makes efforts to communicate and work hard despite communication challenges and pretty severe acute illness as far as unproductive and weak wet cough and wet sounding breathing. Recommend SNF at d/ c to maximize functional mobility prior to return to [facility]. Recommend OT consult and OOB to chair with nsg and total lift to improve respiratory presentation. Goals Bed Mobility Goal Standby Assistance Transfer Goal Standby Assistance,Front Wheeled Walker Gait Goal Standby Assistance,Front Wheel Walker Gait Distance 25 Days to Meet Goals 5 Frequency of Treatment Frequency Of Treatment Once a Day Treatment Plan Physical Therapy Treatment Plan Bed Mobility Training,Transfer Training,Gait Training, Therapeutic Exercise,Balance Retraining,Discharge Planning, Hot or Cold Pack,Neuromuscular Re-ed,Coordination Retraining ,Manual Therapy Precautions Other Precautions Droplet Recommendations To Nursing Amount of Assist Needed Mechanical Lift Discharge Recommendations PT Discharge Recommendations SNF Rehab Transportation Needs at Discharge Wheelchair/Cabulance
--- NOTE | 2024-09-25 14:12 | CM.DPNOTE ---
DCP Note RELAY MECHANIC reviewed EMR. per hospitalist in morning rounds, plan to weak oxygen as able. still on 1Ltr. plan to have pt work with ENVIRONMENT FRIENDLY LANDSCAPE DESIGNER due to suspicious of pt aspirating. Per PT eval note, unsure of pt's baseline but pt seams below baseline for mobility. rec SNF and OT consult. RELAY MECHANIC to find out more information on pt's baseline mobility from [facility] tomorrow (Thursday). per previous CM notes, pt nonambulatory at baseline. P: return to [facility]/resume with [facility] for PT/OT/speech vs dc to SNF. if SNF, referrals needed. CM team will continue to coordinate close with [facility] Thursday. RODRIGUEZ Velasco
--- NOTE | 2024-09-25 23:00 | PC.NURSE ---
Addendum entered by Lyubov Jacobson R.N. 09/26/24 00:07: o2 sats dropping to 88-89% on room air while sleeping due to mouth breathing. oximask placed on 1.5 L w/ o2 sats now of 90-91%. Original Note: pt watching tv in bed. a&o x4. pt is very soft spoken w/ delayed speech. responds best to yes/no questions. slight tremor r/t parkinson's. vss. o2 sats 91% on room air. intermittent cough w/ some chest congestion. expiratory wheezing heard in bilateral upper lobes. abdomen soft, nontender. active bowel sounds x4. pt is incontinent of urine, condom cath in place and patent. denies pain. denies nausea. refused scds. pt is a rah lift w/ q2h turns. bed in lowest position, bed alarm on. call light within reach.
[2024-09-26] VITALS (7 sets, daily range): BP systolic 84–181; BP diastolic 51–89; PULSE 56–70; RESP 17–97; TEMP 36.1–36.3; O2SAT 90–95
[2024-09-26 06:00] LABS: Add Manual Diff / Slide Review NO; Basophils Absolute Auto 0 /uL (0-100); Basophils Percent Auto 0.4 % (0-2); Eosinophils Absolute Auto 0 /uL (0-450); Eosinophils Percent Auto 0.4 % (2-4); Hematocrit 38.6 % (41-53); Hemoglobin 13.3 g/dL (13.5-17.5); Lymphocytes Absolute Auto 2000 /uL (1100-4500); Lymphocytes Percent Auto 24.9 % (25-40); Mean Corpuscular HGB Conc 34.3 % (30-36); Mean Corpuscular Hemoglobin 28.7 PG (26-34); Mean Corpuscular Volume 83.5 fL (80-100); Monocytes Absolute Auto 1000 /uL (0-900); Monocytes Percent Auto 12.4 % (3-14); Neutrophils Absolute Auto 5000 /uL (1500-7000); Neutrophils Percent Auto 61.9 % (50-75); Platelet Count 308 X10^3/uL (150-400); Red Blood Cell Count 4.63 X10^6/uL (4.5-5.9); Red Cell Distribution Width 13.1 % (11.6-14.8); White Blood Cell Count 8.1 X10^3/uL (4.5-11.0)
[2024-09-26 06:19] LABS: BUN Creatinine Ratio 39.7 (6-22); Blood Urea Nitrogen 27 mg/dL (9-20); Carbon Dioxide 28 mmol/L (22-32); Chloride 105 mmol/L (98-107); Estimated Glomerular Filt Rate > 60 mL/min (>60); Glucose 138 mg/dL (80-110); HEMOLYSIS < 15 (0-50); Magnesium 2.2 mg/dL (1.6-2.3); Potassium 3.6 mmol/L (3.4-5.1); Sodium 138 mmol/L (137-145)
--- NOTE | 2024-09-26 08:04 | PT-IP ANOTE ---
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 Once again, PT is unable to reach staff and so message left with these questions. Thank you.
[2024-09-26] MEDS: CARBIDOPA-LEVODOPA 25/100 TABLET 3 EACH PO ×3 (08:14→20:02)
[2024-09-26] MEDS: PROPRANOLOL 10 MG TABLET 20 MG PO (08:14)
[2024-09-26] MEDS: FUROSEMIDE 40 MG TABLET PO (08:14)
[2024-09-26] MEDS: MULTIVITAMIN 1 TABLET 1 TAB PO (08:14)
[2024-09-26] MEDS: polyethylene glycoL 3350 17 GM POWD.PACK PO (08:15)
[2024-09-26] MEDS: CHOLECALCIFEROL (VITAMIN D3) 1,000 UNIT TABLET 1000 UNIT PO (08:15)
[2024-09-26] MEDS: predniSONE 20 MG TABLET 40 MG PO (08:15)
[2024-09-26] MEDS: AMOXICILLIN/CLAV 875/125 MG 1 TAB PO ×2 (08:15→20:02)
[2024-09-26] MEDS: HEPARIN 5,000 UNIT/ML VIAL 5000 UNIT SUBCUT ×2 (08:15→20:01)
[2024-09-26] MEDS: SODIUM CHLORIDE 0.9% FLUSH 10 ML IV (08:15)
[2024-09-26] MEDS: FINASTERIDE 5 MG TABLET PO (08:15)
--- NOTE | 2024-09-26 10:59 | PM.PN.1 ---
Subjective Subjective Interval history: Per overnight provider: 59-year-old male with past medical history of hypertension, BPH and Parkinson's disease presents with complain of shortness of breath and cough. Per the patient's report, the patient was seen here yesterday with similar symptoms. The patient was found to have rhinovirus and was stable to be discharged back to his assisted living. However when the patient arrived to his assisted living, the patient has increasing shortness of breath, wheezing and coughing. The patient state that his cough was only mildly productive. The patient also admit to have some subjective fever but denies any chills, nausea, vomiting or diarrhea. In our ER, the patient was hemodynamically stable. The patient was requiring 2L of oxygen per nasal cannula. Chest x-ray shows scatter pattern of possible atypical pneumonia/bronchitis/pulmonary edema. The patient was given IV Solumedrol, duonebs and Azithromycin. BNP was in the 200s. Due to possible pulmonary edema on x-ray patient was given 20 mg of IV lasix . Interval history: Still on some supplemental O2 today, will check COMMISSIONS MANAGER eval today to see if any aspiration component to respiratory failure. therapy recommending SNF, OT also ordered. Exam Vital Signs (past 8 hours): - 09/26/24 03:00 09/26/24 04:20 09/26/24 08:00 Temperature 97.3 F L 97.2 F L Pulse Rate 66 66 Respiratory Rate 97 H 20 Blood Pressure 178/89 H 167/76 H 181/81 H Pulse Oximetry 92 95 Oxygen Flow Rate 1.5 1.5 Fraction of Inspired Oxygen 21 SaO2/FiO2 Ratio 442 Oxygen Delivery Method Nasal Cannula Oxygen Flow Rate 1.5 Narrative Exam Narrative: General:? Mildly ill appearing male, pale, no acute distress eating breakfast HEENT:? Normocephalic, atraumatic, extraocular muscles intact, oral pharynx is clear and mucous membranes are moist. Neck: supple and symmetric, trachea is midline, no cervical adenopathy. Chest:? Normal AP diameter and contour without kyphoscoliosis, no tachypnea, equal chest rise bilaterally. Lungs:? Mild expiratory wheeze, no rhonchi or rales. Cardio:?RRR no m/r/g. Abdomen: S NT ND. Musculoskeletal:? Muscle strength and tone are equal within normal limits, no deformity. Extremities: trace bilateral LE edema. No joint effusions. No cyanosis or clubbing. Skin:? Pale,? Warm to touch,dry and intact without rashes, ulcerations or petechiae.? Neuro:? Alert and orientated x3,?soft spoken, slight tremor Objective Labs 09/26/24 05:15 09/26/24 05:15 Labs: Laboratory Results - last 24 hr 09/26/24 05:15 WBC 8.1 RBC 4.63 Hgb 13.3 L Hct 38.6 L MCV 83.5 MCH 28.7 MCHC 34.3 RDW 13.1 Plt Count 308 Neut % (Auto) 61.9 D Lymph % (Auto) 24.9 L Davidson % (Auto) 12.4 Eos % (Auto) 0.4 L Baso % (Auto) 0.4 Neut # (Auto) 5000 Lymph # (Auto) 2000 Davidson # (Auto) 1000 H Eos # (Auto) 0 Baso # (Auto) 0 Sodium 138 Potassium 3.6 Chloride 105 Carbon Dioxide 28 BUN 27 H Creatinine 0.68 Estimated GFR > 60 BUN/Creatinine Ratio 39.7 H Glucose 138 H Calcium 9.0 Magnesium 2.2 PFSH Medical History Constipation BPH (benign prostatic hyperplasia) Hypertension Parkinsons disease Social History household members: none Smoking Status: Unknown if ever smoked Assessment & Plan Assessment & Plan narrative: Acute respiratory failure with hypoxemia, possible superimposed bacterial pneumonia on presumed viral pneumonia. Possible asthma excaerbation or reactive airway ?- Patient currently on 1L of O2. Treat as above and wean down O 2 as able. ?- suspect viral pneumonia, no leukocytosis but possible bacterial infection. Will continue augmentin for possible PNA. ?- no history of COPD or asthma, inhalers were recently prescribed. ?- initially stopped prednisone, but restarted with worsening. Continue prednisone x5 day course now. ?- respiratory panel positive for rhinovirus ?- okay to continue albuterol as needed. ?- TTE was unremarkable with no systolic or diastolic dysfunction. ?- wean from O2 as tolerated, goal O2 90-96% on supplemental therapy. ?- will consult COMMISSIONS MANAGER for possible aspiration given continued hypoxia today. - PT recommending SNF, consulting COMMISSIONS MANAGER and OT today as well. BPH - resume home flomax. Hypertension - ?- stop home atenolol as he is also on propranolol. Hypertensive today, will add lisinopril. Multisystem atrophy, chronic. ?- continue home sinemet DVT prophylaxis hep SQ Code: DNR, surrogate is patient's son Additional history obtained via discussions with rn case manager and physical therapist. These discussions contributed to the creation of the above assessment and plan. I have reviewed patient's presenting documentation, labs, and imaging personally. Time-Based Coding :: [TOTAL MINUTES] spent with patient and on the chart (including review of chart, obtaining history, exam, reviewing outside data, placing orders, documenting exam and treatment plan, and counseling patient) on [DATE].
--- NOTE | 2024-09-26 11:15 | PT-IP ANOTE ---
PT speaks with Orly med arcadio at [facility], who states that pt has had a decline. He has been getting PT and speech once a week and he has only been getting up with walker with PT. Orly states that pt has been requiring two person assist for transfer to /c and dependent/heavy assist for ADLs. Orly states that medical history per [facility] is PD and multisystem atrophy as well as HTN. In rounds, hospitalist confirms multisystem atrophy as pt diagnosis and indication for carbidopa levadopa.
[2024-09-26] MEDS: lisinopriL 10 MG TABLET PO (11:22)
--- NOTE | 2024-09-26 11:48 | OT.IP.EVAL ---
Current Diagnoses Chronic obstructive pulmonary disease with (acute) exacerbation (09/22/24) Past Medical History (Last Reviewed 09/22/24 @ 22:08 by Han Coy DO) BPH (benign prostatic hyperplasia) Constipation Hypertension Parkinsons disease Occupational Therapy Inpatient Evaluation/Re-Eval M1 PT/OT-IP Prior Functional Status Start: 09/25/24 10:44 Freq: NEEDED Status: Active Protocol: Document 09/26/24 13:05 CGR (Rec: 09/26/24 13:25 CGR [id number]) Medical Review Prior Functional Status Medical History Reviewed Yes Communication pt makes a good effort to communicate but speech is challenging from multisystem atrophy Mobility and Gait Pt lives at [facility] and he has a hospital bed, RW and w/c and per facility needs 2 person assist for transfers Activities of Daily Living and IADL's Per facility, pt is getting dependent care for ADLs. Social History Household Members none Living Arrangements Assisted Living Number of Stairs To Enter/Railing? Accessible entrance into [facility] Equipment Hospital Bed Additional Social History Comment Pt has accessible bathing and toileting options at [facility] and see above about DME reports. Pt has a hx of parkinsons and multisystem atrophy. M2 OT-IP Current Condition Start: 09/26/24 13:05 Freq: Status: Active Protocol: Document 09/26/24 13:05 CGR (Rec: 09/26/24 13:25 CGR [id number]) Occupational Therapy Current Condition Current Condition Evaluation Date 09/26/24 Treatment Diagnosis acute respiratory failure, PNA Diagnosis Onset Date 09/22/24 Post Operative Precautions Other Precautions droplet precautions. M3 OT- IP Subjective and Pain Start: 09/26/24 13:05 Freq: Status: Active Protocol: Document 09/26/24 13:05 CGR (Rec: 09/26/24 13:25 CGR [id number]) OT- Subjective Occupational Therapy Visit Type Type Initial Evaluation Visit Start Time 11:26 Visit Stop Time 11:48 Notes co-treat with P.T. OT Pain Assessment Pain When Pain Assessed At Rest Pain Present Pain Present Denied Pain M4 OT- IP ADL's Start: 09/26/24 13:05 Freq: Status: Active Protocol: Document 09/26/24 13:05 CGR (Rec: 09/26/24 13:25 CGR [id number]) OT [id number] Comments OT Self-Feeding Comments not meal time but per ST, pt will be NPO d/t aspiration. OT ADL-Grooming General Evaluation Grooming Ability Standby Assistance Areas Needing Assistance Combing/Brushing Hair,Face Washing Comments OT Grooming Comments standing at sink OT ADL-Oral Care Comments Oral Care Comments not performed, pt states he does not have teeth. OT ADL-Dressing General Eval Upper Body Dressing Ability Total Assistance Areas Needing Assistance Underpants/Brief Comments OT Dressing Comments after sitting on BSC OT ADL-Toileting General Evaluation Toileting Ability Total Assistance Comments OT Toileting Comments Pt sat on BSC but was unable to have BM. Pt did urinate with some urine going into condom cath and some going into the BSC. OT ADL-Bathing Comments OT Bathing Comments not performed. M5 OT- IP IADL's Start: 09/26/24 13:05 Freq: Status: Active Protocol: Document 09/26/24 13:05 CGR (Rec: 09/26/24 13:25 CGR [id number]) OT-Instrumental Activities of Daily Living Deficits IADL Deficits Identified Deficits Home Safety Awareness Awareness of Need for Assistance at Home Good Awareness Ability to Problem Solve Emergency Able to Problem Solve Situations Medication Management Medication Management Caregiver Administers Money Management Money Management Caregiver Provides Assistance Meal Preparation Meal Preparation Caregiver Provides Assist Nanoelectronics Engineer Nanoelectronics Engineer Caregiver Provides Assist Driving Driving Comments Pt does not drive M6 OT- IP Functional Cognition Start: 09/26/24 13:05 Freq: Status: Active Protocol: Document 09/26/24 13:05 CGR (Rec: 09/26/24 13:25 CGR [id number]) Cognitive Factors Limiting Selfcare Function Cognitive Ability Level of Alertness Alert Patient Orientation Name Attention Span Ability Capable of Focused Attention, Capable of Sustained Attention Ability to Follow Commands Able to Follow One Step Commands with Increased Time, Able to Follow One Step Commands with Repetition Cognitive Comments Cognitive Assessment Comments Pt's speech makes cog assessment difficult. More appropriate for ST assessment. However, pt did follow commands without difficulty. OT- Vision and Hearing OT- Hearing Assessment OT- Hearing Assessment WFL OT- Vision Assessment Visual Acuity WFL Vision Assessment Comments Pt tracks but it is delayed M7 OT- IP Mobility and Balance Start: 09/26/24 13:05 Freq: Status: Active Protocol: Document 09/26/24 13:05 CGR (Rec: 09/26/24 13:25 CGR [id number]) OT-Transfer Assessment Sit to and From Stand Sit to and from Stand Moderate Assistance,1 Person Assistance Transfers Transfer Ability Moderate Assistance,1 Person Assistance Technique Transfer Destination Bedside Commode,Chair Transfer Technique Stand Step Pivot Devices Transfer Assistive Devices Gait Belt,Front Wheeled Walker Comments Mobility Comments scooting with CGA and extra time to front of chair but needed max a for scooting back in chair. Pt able to walk to sink with min/mod. OT- Gait Assessment Gait Gait Assistance Required: Minimum Assistance,Moderate Assistance,1 Person Assist Distance (Feet) 5 Able to Maintain Weight Bearing Status Yes During Gait Assistive Devices Assistive Device Gait Belt,Front Wheeled Walker Comments Gait Ability Comments Pt ambulated from chair to sink for ADLs then stood at sink for washing face and brushing hair. OT- Balance Assessment Sitting Balance and Reactions Static Sitting Balance Ability Good Dynamic Sitting Balance Ability Good M8 OT- IP Objective Assessments Start: 09/26/24 13:05 Freq: Status: Active Protocol: Document 09/26/24 13:05 CGR (Rec: 09/26/24 13:25 CGR [id number]) OT Gross Range of Motion Upper Extremity Range of Motion Assessment Within Functional Limits OT Strength Upper Extremity Strength Assessment Within Functional Limits Comments Strength Comments 4+/5 OT- Coordination Assessment Upper Extremity Finger to Nose Test Within Functional Limits Finger Tapping Test Within Functional Limits Comments Coordination Comments coordination is slow OT-Muscle Tone Assessment Muscle Tone WNL Yes OT Sensation Assessment Edema Edema Absent M9 OT- IP Assessment and Plan Start: 09/26/24 13:05 Freq: Status: Active Protocol: Document 09/26/24 13:05 CGR (Rec: 09/26/24 13:25 CGR [id number]) OT Summary Assessment and Plan Potential Rehabilitation Potential Good Analytic Complexity at Evaluation Moderate Summary OT Impairments Balance,Functional Mobility, Grooming,Dressing,Toileting, Bathing,Toilet Transfers, Shower Transfers,Activity Tolerance Progress Towards Goals Progressing Toward Goals,Slow Progress due to Medical Issues Assessment Summary Pt presents as a moderate complexity evaluation s/p admit for acue respiratory failure. Pt is participating with excellent motivation and is very strong but needs extra time for all activities. Pt will benefit from rehab to increase he endurance to better participate in ADLs. It is likely that he was receiving dependent care because he needs extra time to perform ADLs. Pt is highly driven and wants to do more for himself and would be a great candidate for SNF. Goals Grooming Goal Independent Dressing Goal Independent Toileting Goal Minimal Assistance Bathing Goal Minimal Assistance,Moderate Assistance Toilet Transfer Goal Minimal Assistance Shower Transfer Goal Minimal Assistance Days to Meet Goals 30 Frequency of Treatment Other frequency 5x a week Treatment Plan OT Treatment Plan ADL Training,Functional Mobility,Therapeutic Exercises ,Patient/Family Education, Discharge Planning Other Treatment Recommendations and Next assess for dressing abilities Treatment Focus and possibly shower if pt is well rested. Discharge Recommendations OT Discharge Recommendations SNF Rehab Transportation Needs at Discharge Wheelchair/Cabulance
--- NOTE | 2024-09-26 12:04 | PT.IPTN ---
Current Diagnoses Chronic obstructive pulmonary disease with (acute) exacerbation (09/22/24) Physical Therapy Treatment Note M2 PT-IP Current Condition Start: 09/25/24 10:44 Freq: NEEDED Status: Active Protocol: Document 09/25/24 10:45 MB (Rec: 09/25/24 11:51 MB [id number]) Physical Therapy Current Condition Current Condition Evaluation Date 09/25/24 Treatment Diagnosis ARF and PNA M3 PT-IP Subjective Start: 09/25/24 10:44 Freq: NEEDED Status: Active Protocol: Document 09/26/24 11:12 MB (Rec: 09/26/24 12:04 MB [id number]) Subjective Physical Therapy Visit Type Type Treatment Note Visit Start Time 11:12 Visit Stop Time 11:50 Number of SPORTS CARTOONIST Visits 0 Physical Therapy Visit Comments Patient Comments Pt is agreeable to PT, presents with bowel continence today, use of urinary condom cath today. Therapy Pain Assessment Pain When Pain Assessed At Rest Pain Present Pain Present Denied Pain M4 PT-IP Mobility and Gait Start: 09/25/24 10:44 Freq: NEEDED Status: Active Protocol: Document 09/26/24 11:12 MB (Rec: 09/26/24 12:04 MB [id number]) PT-Transfer Assessment Sit to and From Stand Sit to and from Stand Minimal Assistance,Moderate Assistance,1 Person Assistance ,Use of Upper Extremities Equipment Transfer Assistive Device Gait Belt,Front Wheeled Walker Orthotic/Prosthetic Devices or Brace: No Transfers Transfer Destination Chair,Bedside Commode Transfer Technique Step pivot and then ambulation Transfer Ability Level of Assist Moderate Assistance,1 Person Assistance,Use of Upper Extremities Comments Mobility Comments Pt up in chair and breathing sounds better in sitting this a.m. compared to last date and pt con't with mild and weak unproductive cough but less frequent this a.m. Increased time, cues and mod A to stand from chair and BSC pushing up from arm rests and min A and cues for sitting on BSC and chair today. Standing at sink several minutes to perform ADLs with OT, pt requires CGA and one hand on walker. Gait Assessment Gait Gait Assistance Required: Minimum Assistance,Moderate Assistance,Maximum Assistance, 1 Person Assist Distance (Feet) 5 Assistive Devices Assistive Device Gait Belt,Front Wheeled Walker Gait Deviations General Gait Pattern Festinating,Flexed Trunk Factors Limiting Gait Function Factors Limiting Gait Function Decreased Activity Tolerance, Incoordination,Poor Balance Comments Gait Comments Forward stepping with RW requires min to mod A x5 feet and backwards stepping requires max A, mostly to help move walker and then cues for stepping back and PT providing tactile assistance to pt of mod A d/t more posterior LOB with stepping backwards. PT-Balance Assessment Sitting Balance and Reactions Static Sitting Balance Ability Good Dynamic Sitting Balance Ability Fair Standing Balance and Reactions Static Standing Balance Ability Fair Dynamic Standing Balance Ability Poor Device Used RW M5 PT-IP Objective Assessments Start: 09/25/24 10:44 Freq: NEEDED Status: Active Protocol: Document 09/25/24 10:45 MB (Rec: 09/25/24 11:51 MB [id number]) Orientation Orientation/Cognition Level of Alertness Alert Orientation Name,Age,Birthday,Year,Place Safety Awareness Decreased Safety Awareness Memory Description No Deficits Noted Comments Pt has communication barriers from [facility] but it does not appear that he is cognitively impaired, may benefit from more formal cognitive assessment from OT Gross Range of Motion Upper Extremity ROM Assessment Bilaterally Impaired Lower Extremity ROM Assessment Bilaterally Impaired Strength Upper Extremity Strength Assessment Bilaterally Impaired Lower Extremity Strength Assessment Bilaterally Impaired Comments Strength Comments Limited range and strength all joints and pt does not tolerate formal assessment today given acute respiratory illness and great effort he puts into log rolling, getting to EOB and up to walker and chair today Coordination Assessment Gross Coordination Gross Coordination Impaired Sensation Assessment Comments Sensation Comments Not tested today Other Assessments Other Other Assessments Increased flexor tone in general, mild, and may be from current decreased mobility M7 PT-IP Assessment and Plan Start: 09/25/24 10:44 Freq: NEEDED Status: Active Protocol: Document 09/26/24 11:12 MB (Rec: 09/26/24 12:04 MB [id number]) PT Summary Assessment and Plan Potential Rehabilitation Potential Good Status of Condition at Evaluation Evolving Summary Impairments ROM,Strength,Balance, Coordination,Bed Mobility, Transfers,Gait,Activity Tolerance Progress Towards Goals Progressing Toward Goals Assessment Summary Pt progresses with mobility today, requires less assist to stand up and he stands up and sits down on both chair and BSC today. Gait training to sink in room and standing for a few minutes as well. See objective for assistance required. His O2 sats on RA drop to 87-88% once in sitting and then return to the mid 90s. PT feels that pt can benefit from ongoing acute and post-acute PT in SNF setting. He has already made gains in 24 hours with acute illness. It is possible he was declining at [facility] d/t PNA and there may have been other barriers to increasing mobility at [facility]. Knee extension, DF, great toe extension today all 5/5 in available range. Pt has less of a muscle strength issue and more of a dyskinesia/ bradykinesia presentation. Goals Bed Mobility Goal Standby Assistance Transfer Goal Standby Assistance,Front Wheeled Walker Gait Goal Standby Assistance,Front Wheel Walker Gait Distance 25 Days to Meet Goals 5 Frequency of Treatment Frequency Of Treatment Once a Day Treatment Plan Physical Therapy Treatment Plan Bed Mobility Training,Transfer Training,Gait Training, Therapeutic Exercise,Balance Retraining,Discharge Planning, Hot or Cold Pack,Neuromuscular Re-ed,Coordination Retraining ,Manual Therapy Precautions Other Precautions Droplet Recommendations To Nursing Amount of Assist Needed 2 Person Assist Discharge Recommendations PT Discharge Recommendations SNF Rehab Transportation Needs at Discharge Wheelchair/Cabulance
--- NOTE | 2024-09-26 12:31 | PC.NURSE ---
Addendum entered by Gabby Lees R.N. 09/26/24 17:50: Patient's bottom is excoriated with small open areas on bilateral buttocks. Pictures in chart and hospitalist notified. Patient turned to side, applied ample amounts of barrier cream to affected area, and left open to air. Call light in reach and bed alarm turned on. Original Note: patient coughing with med pass and fluids. Has some coughing with foods. Informed hospitalist and diet changed to minced and moist and thickend liquids until speech therapy can eval. Incontinent of urine and stool. Up to chair via rah by RN and PCT. Call light in reach.
--- NOTE | 2024-09-26 14:25 | ST.IPCSEOM ---
Visit Care Team Role Provider Type Amilcar Gilbert MD Primary Care Provider Non-Staff Specialty: Internal Medicine Address: [address] [place], [address] Email: Han Coy DO Emergency Provider Physician Referring Provider Specialty: Emergency Medicine Address: [address] [place] [address], [id number] Email: [email or web address] [email or web address] MD Admit Provider Physician Attending Provider Specialty: Internal Medicine Address: [address] [place] [address], [id number] Email: [email or web address] Diagnoses Chronic obstructive pulmonary disease with (acute) exacerbation (09/22/24) Past Medical History (Last Reviewed 09/22/24 @ 22:08 by Han Coy DO) BPH (benign prostatic hyperplasia) (Medical) Constipation (Medical) Hypertension (Medical) Parkinsons disease (Medical) Speech-Language Pathology Swallow Evaluation PUBLIC POLICY MEDIATOR Clinical Swallow Evaluation Start: 09/26/24 13:16 Freq: Status: Active Protocol: Document 09/26/24 13:16 SS (Rec: 09/26/24 13:44 SS [id number]) Clinical Swallow Evaluation Session Time Visit Start Time 12:30 Visit Stop Time 13:10 Total Visit Minutes 40 Visit Information Visit Number [address] Zaire Rodrigues Reason for Referral Overt s/sx of aspiration Setting Assessment Location Acute Care Visit Type Note Type Initial evaluation Next Note Type Next Note Type Treatment Note Patient Information Identification Type Name,Date of History Per H&P on 09/22/24, 59-year- old male with past medical history of hypertension, BPH and Parkinson's disease presents with complain of shortness of breath and cough. Per the patient's report, the patient was seen here yesterday with similar symptoms. The patient was found to have rhinovirus and was stable to be discharged back to his assisted living. However when the patient arrived to his assisted living , the patient has increasing shortness of breath, wheezing and coughing. The patient state that his cough was only mildly productive. The patient also admit to have some subjective fever but denies any chills, nausea, vomiting or diarrhea. Clinical Swallowing evaluation completed to assess for overt s/sx of aspiration in the setting of respiratory failure . Subjective Observations Pt sitting upright in armchair upon PUBLIC POLICY MEDIATOR arrival. He presented with intermittent productive cough at baseline. RN reported coughing with liquids, medications, and intermittently with solids. Baseline hypophonia noted in the setting of PD with effort noted as pt attempted to provide case history and answer questions. Case history obtained primarily from chart and conversation with RN given significantly decreased intelligibility. Pt denied history of dysphagia and reported his baseline diet level is regular textures, thin liquids, and medications with liquid wash. He denied history of PNA and recent unintentional weight loss. Reported by Patient/Caregiver Pain/Discomfort No Other Symptoms Coughing,Difficulty swallowing liquids,Difficulty swallowing solids,Food gets stuck Current Diet Regular (IDDSI 7) Baseline Feeding Method Independent in self-feeding The IDDSI Framework Protocol: IDDSI.1 Objective Assessment Mental Status Alert,Responsive,Cooperative Oral Integrity WFL Dentition Edentulous Lip Function Within normal limits Observation of Lips at Rest Symmetrical Pucker Reduced range of motion, Reduced strength Lip Retraction Reduced range of motion Alternating Pucker/Lip Retraction Reduced range of motion, Incoordination Tongue Function Mild impairment Observations of Tongue at Rest Involuntary movement(s) Tongue Protrusion Involuntary movement(s), Reduced range of motion, Reduced strength Tongue Retraction Reduced range of motion, Reduced strength Tongue Lateralization Reduced range of motion, Reduced strength, Incoordination Jaw Function Within normal limits Jaw Opening Reduced range of motion, Reduced strength Jaw Closing Reduced range of motion, Reduced strength Jaw Lateralization Reduced range of motion, Reduced strength, Incoordination Jaw Protrusion Reduced range of motion, Reduced strength Jaw Retraction Reduced range of motion, Reduced strength Hard/Soft Palate Function Mild impairment Observations of Hard/Soft Palate Reduced strength/ROM of soft palate elevation Nasality Hypernasal Respiratory Sufficiency Mild impairment Comment Tremors noted with all movements. Reduced ROM and strength as well as incoordination noted with labial, lingual, and jaw movement. Pt on room air during assessment, though was reported to be on 1L NC throughout the day. Food and Liquid Trials Position During Assessment Upright (90 degrees) Liquids Trialed Thin (IDDSI 0) Solid Trials Purred (IDDSI 4),Minced & Moist (IDDSI 5) Administration Type Tea spoon,Cup single sip, Controlled cup sip,Self- feeding Oral Impairment Mildly impaired Oral Phase Comments Pt demonstrated good oral acceptance, adequate mastication, good bolus formation, and likely delayed and mildly disorganized AP lingual transport. No overt s/ sx of delayed pharyngeal swallow or premature spillage. Pharyngeal Impairment Severely impaired Pharyngeal Phase Comments Pharyngeal phase cannot be assessed at bedside though subjectively appeared effortful and pt required 2-3 swallows per bolus at times. Pt demonstrated consistent s/ sx of aspiration with all PO intake re: coughing and throat clearing following every bite and sip. Cough strength is judged to be weak increasing aspirated related complications. Additionally, pt was attempting to manage secretions while swallowing, though unable to clear them without use of suctioning. It is impossible to differentiate wet cough following PO intake from baseline intermittent cough. Fatigue/Endurance Moderate fatigue Comment Pt requested to rest after about 5 sips of thin liquids and a few spoonfuls of puree and minced and moist textures. The IDDSI Framework Protocol: IDDSI.1 Findings Swallowing Function Oropharyngeal phase dysphagia Severity of Swallow Impairment Moderately-severely impaired Contributing Factors to Swallow Reduced oral strength/ Impairment coordination/sensation, Mastication inefficiency, Impaired oral-pharyngeal transport,Impaired airway protection,Excessive pharyngeal residue Prognosis Fair Based on Cognitive status,Bed bound,Age ,Comorbidities,Duration of symptoms/severity Comment Pt presents with indications of oropharyngeal dysphagia and aspiration risk is judged to be high. Pt does not appear safe for a PO diet at this time and does not appear appropriate at this time for an ice chip protocol given significant difficulty managing secretions as well as baseline reduced cognition. With any dysphagia aside, pt continues to be at an overall risk of development of PNA d/t his compromised immune system /health status, dependence on others for oral care, multiple medical diagnoses, and number of medications. If no clinical improvements are made , strongly recommend MBSS in house to further assess swallow pathophysiology. PUBLIC POLICY MEDIATOR to contact diagnostic imaging re: scheduling once MD places order. RN and MD notified of assessment results. Impact on Safety and Functioning Risk for aspiration,Risk for inadequate nutrition/hydration Recommendations Instrumental Assessment Yes Swallowing Treatment Yes Frequency Once daily Recommended Solids NPO Other Recommendations Use of suction to clear secretions and oral care BID to minimize colonization of oral pathogens that can increase pt's risk of developing aspiration pneumonia if aspirated. Medication Recommendations Not Recommended by Mouth Discharge Recommendations custodial facility Referrals Recommended Referrals Dietary Education Patient/Caregiver Education Patient expressed understanding of evaluation, Patient expressed agreement with goals & treatment plans Goals Short-term Goals Patient will tolerate IDDSI 7 (easy to chew) with no clinical s/sx of aspiration in 100% of opportunities in order to consume least restrictive diet texture. Patient will tolerate thin liquids with no overt s/sx of aspiration in 100% of opportunities in order to consume least restrictive diet texture. Patient will complete MBSS to further evaluate swallowing pathophysiology and determine next steps in POC. Long-term Goals Patient will safely tolerate least restrictive diet consistency to allow for safe consumption of daily meals without s/sx of aspiration.
--- NOTE | 2024-09-26 15:23 | SLP.IPNOTE ---
MBSS scheduled for Tomorrow (09/27) at 11:30. MBSS order placed by MD and scheduling completed.
--- NOTE | 2024-09-26 15:52 | CM.DPC ---
DCP SNF Planning: Per MD, pt making progress but still on oximask and not yet stable to discharge but likely in 1-2 days. Per PT/OT, recommending SNF at d/c as they feel pt would really benefit from SNF rehab to increase his independence before return to [facility]. SW faxed updated notes to [facility] and left msg requesting review and call back. SW made new referral to [facility] and they likely can accept and will need to get one-time auth for [facility] as pt lives at their sister facility and SW sent PT/OT/ST notes. PASRR done in anticipation of SNF. SW met bedside with pt and explained role and pt very speech impaired but alert and oriented and discussed return to [facility] vs [facility] for SNF rehab before return to [facility] and pt able to confirm he is agreeable with d/c to [facility] to see if he can strengthen more before return to [facility]. Plan: SW to follow for plan of [facility] at d/c if [facility] HO auth obtained otherwise pt can d/c back to [facility] at discharge. Aleyda Squires MSW
[2024-09-26] MEDS: SODIUM CHLORIDE 0.9% 1,000 ML 125 ML IV (16:19)
[2024-09-26] MEDS: SODIUM CHLORIDE 0.9% 500 ML 1000 ML IV (16:20)
[2024-09-27] VITALS: BP 151/69; PULSE 57; RESP 14; TEMP 36; O2SAT 92
[2024-09-27] MEDS: SODIUM CHLORIDE 0.9% 1,000 ML 125 ML IV ×2 (00:50→11:15)
[2024-09-27 04:00] VITALS: BP 146/54; PULSE 62; RESP 17; TEMP 36.2; O2SAT 90
[2024-09-27 08:00] VITALS: BP 150/81; PULSE 74; RESP 18; TEMP 36.1; O2SAT 93
[2024-09-27] MEDS: CHOLECALCIFEROL (VITAMIN D3) 1,000 UNIT TABLET 1000 UNIT PO (09:26)
[2024-09-27] MEDS: HEPARIN 5,000 UNIT/ML VIAL 5000 UNIT SUBCUT ×2 (09:27→20:40)
[2024-09-27] MEDS: FUROSEMIDE 40 MG TABLET PO (09:27)
[2024-09-27] MEDS: predniSONE 20 MG TABLET 40 MG PO (09:27)
[2024-09-27] MEDS: FINASTERIDE 5 MG TABLET PO (09:27)
[2024-09-27] MEDS: AMOXICILLIN/CLAV 875/125 MG 1 TAB PO (09:27)
[2024-09-27] MEDS: MULTIVITAMIN 1 TABLET 1 TAB PO (09:27)
[2024-09-27] MEDS: CARBIDOPA-LEVODOPA 25/100 TABLET 3 EACH PO ×3 (09:29→20:40)
[2024-09-27 09:33] VITALS: BP 150/81; PULSE 72
[2024-09-27] MEDS: lisinopriL 10 MG TABLET PO (09:33)
[2024-09-27] MEDS: SODIUM CHLORIDE 0.9% FLUSH 10 ML IV (09:34)
--- NOTE | 2024-09-27 10:33 | P.PN_ITS ---
Subjective Subjective Interval history: SOCIAL MEDIA SENIOR ASSOCIATE evaluation yesterday recommended NPO. He is off of supplemental oxygen today, when asked today he was not sure if he would want a feeding tube for supplemental nutrition. Exam Vital Signs (past 8 hours): - 09/27/24 04:00 09/27/24 09:33 Temperature 97.1 F L Pulse Rate 62 72 Respiratory Rate 17 Blood Pressure 146/54 H 150/81 H Pulse Oximetry 90 L Fraction of Inspired Oxygen 21 SaO2/FiO2 Ratio 442 Oxygen Delivery Method Nasal Cannula Oxygen Flow Rate 1.5 Narrative Exam Narrative: General:? Mildly ill appearing male, pale, no acute distress eating breakfast HEENT:? Normocephalic, atraumatic, extraocular muscles intact, oral pharynx is clear and mucous membranes are moist. Neck: supple and symmetric, trachea is midline, no cervical adenopathy. Chest:? Normal AP diameter and contour without kyphoscoliosis, no tachypnea, equal chest rise bilaterally. Lungs:? Mild expiratory wheeze, no rhonchi or rales. Cardio:?RRR no m/r/g. Abdomen: S NT ND. Musculoskeletal:? Muscle strength and tone are equal within normal limits, no deformity. Extremities: trace bilateral LE edema. No joint effusions. No cyanosis or clubbing. Skin:? Pale,? Warm to touch,dry and intact without rashes, ulcerations or petechiae.? Neuro:? Alert and orientated x3,?soft spoken, slight tremor Objective Labs 09/26/24 05:15 09/26/24 05:15 [facility] Medical History Constipation BPH (benign prostatic hyperplasia) Hypertension Parkinsons disease Social History household members: none Smoking Status: Unknown if ever smoked Assessment & Plan Assessment & Plan narrative: Acute respiratory failure with hypoxemia, possible superimposed bacterial pneumonia on presumed viral pneumonia. Possible asthma excaerbation or reactive airway ?- Off of oxygen today. ?- suspect viral pneumonia, and probably aspiration given SOCIAL MEDIA SENIOR ASSOCIATE evaluation. Will change from augmentin to zosyn today. ?- no history of COPD or asthma, inhalers were recently prescribed. ?- initially stopped prednisone, but restarted with worsening. Continue prednisone x5 day course now. ?- respiratory panel positive for rhinovirus ?- okay to continue albuterol as needed. ?- TTE was unremarkable with no systolic or diastolic dysfunction. ?- wean from O2 as tolerated, goal O2 90-96% on supplemental therapy. ?- SOCIAL MEDIA SENIOR ASSOCIATE recommended NPO, likely aspiration contributing to continued hypoxia. Pending barium swallow. Discussed with patient, unsure if he would want a feeding tube if continued NPO at this time. I do recommend continuing home sinemet PO at this time, as the benefits to therapy outweigh the risks of aspiration from taking these medications at this time. - PT recommending SNF, consulting SOCIAL MEDIA SENIOR ASSOCIATE and OT today as well. - continue IV fluids while NPO today. - depending on SOCIAL MEDIA SENIOR ASSOCIATE evaluation, consider NG tube or PEG placement. POLST states okay for temporary feeding tube but skilled nursing is not checked. BPH - resume home flomax. Hypertension - ?- stop home atenolol as he is also on propranolol. Hypertensive yesterday, added lisinopril. Multisystem atrophy, chronic. ?- continue home sinemet DVT prophylaxis hep SQ Code: DNR, surrogate is patient's son Additional history obtained via discussions with upper caser, speech therapist. These discussions contributed to the creation of the above assessment and plan. I have reviewed patient's presenting documentation, labs, and imaging personally. Time-Based Coding :: [TOTAL MINUTES] spent with patient and on the chart (including review of chart, obtaining history, exam, reviewing outside data, placing orders, documenting exam and treatment plan, and counseling patient) on [DATE].
--- NOTE | 2024-09-27 10:54 | PT.IPTN ---
Current Diagnoses Chronic obstructive pulmonary disease with (acute) exacerbation (09/22/24) Physical Therapy Treatment Note M2 PT-IP Current Condition Start: 09/25/24 10:44 Freq: NEEDED Status: Active Protocol: Document 09/25/24 10:45 MB (Rec: 09/25/24 11:51 MB [id number]) Physical Therapy Current Condition Current Condition Evaluation Date 09/25/24 Treatment Diagnosis ARF and PNA M3 PT-IP Subjective Start: 09/25/24 10:44 Freq: NEEDED Status: Active Protocol: Document 09/27/24 11:20 TS (Rec: 09/27/24 11:31 TS [id number]) Subjective Physical Therapy Visit Type Type Treatment Note Visit Start Time 10:54 Visit Stop Time 11:19 Number of DIRECTOR ENTERPRISE SALES Visits 1 Physical Therapy Visit Comments Patient Comments Pt found resting in bed, pt is hypoverbal, he is agreeable to PT. Therapy Pain Assessment Pain When Pain Assessed During Mobility Pain Present Pain Present Pain Reported M4 PT-IP Mobility and Gait Start: 09/25/24 10:44 Freq: NEEDED Status: Active Protocol: Document 09/27/24 11:20 TS (Rec: 09/27/24 11:31 TS [id number]) PT-Bed Mobility Assessment Supine to Sit Supine to Sit Moderate Assistance,1 Person Assistance Scooting Scooting to Edge of Bed Maximum Assistance PT-Transfer Assessment Sit to and From Stand Sit to and from Stand Moderate Assistance,1 Person Assistance Equipment Transfer Assistive Device Gait Belt,Front Wheeled Walker Orthotic/Prosthetic Devices or Brace: No Transfers Transfer Destination Chair Transfer Technique Stand Step Pivot Transfer Ability Level of Assist Minimal Assistance,1 Person Assistance Comments Mobility Comments Supine to sit with HOB elevated 45D ModA with REPORT MANAGER. He requires MaxA to scoot to EOB with use of transfer pad. STS with FWW ModA, pt is slow to stand. condom cath began leaking from the top. Pt transfers to the chair Kenyatta with FWW. Pt was left in the chair, nursing notified. Gait Assessment Gait Gait Assistance Required: Minimum Assistance,1 Person Assist Distance (Feet) 2 Able to Maintain Weight Bearing Status Yes During Gait Assistive Devices Assistive Device Gait Belt,Front Wheeled Walker Orthotic/Prosthetic Devices or Brace: No Gait Deviations General Gait Pattern Festinating,Flexed Trunk Factors Limiting Gait Function Factors Limiting Gait Function Decreased Activity Tolerance, Incoordination,Poor Balance PT-Balance Assessment Sitting Balance and Reactions Static Sitting Balance Ability Good Dynamic Sitting Balance Ability Good Standing Balance and Reactions Static Standing Balance Ability Fair Dynamic Standing Balance Ability Poor Device Used RW M5 PT-IP Objective Assessments Start: 09/25/24 10:44 Freq: NEEDED Status: Active Protocol: Document 09/25/24 10:45 MB (Rec: 09/25/24 11:51 MB [id number]) Orientation Orientation/Cognition Level of Alertness Alert Orientation Name,Age,Birthday,Year,Place Safety Awareness Decreased Safety Awareness Memory Description No Deficits Noted Comments Pt has communication barriers from [facility] but it does not appear that he is cognitively impaired, may benefit from more formal cognitive assessment from OT Gross Range of Motion Upper Extremity ROM Assessment Bilaterally Impaired Lower Extremity ROM Assessment Bilaterally Impaired Strength Upper Extremity Strength Assessment Bilaterally Impaired Lower Extremity Strength Assessment Bilaterally Impaired Comments Strength Comments Limited range and strength all joints and pt does not tolerate formal assessment today given acute respiratory illness and great effort he puts into log rolling, getting to EOB and up to walker and chair today Coordination Assessment Gross Coordination Gross Coordination Impaired Sensation Assessment Comments Sensation Comments Not tested today Other Assessments Other Other Assessments Increased flexor tone in general, mild, and may be from current decreased mobility M7 PT-IP Assessment and Plan Start: 09/25/24 10:44 Freq: NEEDED Status: Active Protocol: Document 09/27/24 11:20 TS (Rec: 09/27/24 11:31 TS [id number]) PT Summary Assessment and Plan Potential Rehabilitation Potential Good Summary Impairments ROM,Strength,Balance, Coordination,Bed Mobility, Transfers,Gait,Activity Tolerance Progress Towards Goals Progressing Toward Goals Assessment Summary Pt requries Kenyatta to Mod[place] for mobility. He follows cues and directions well. He continues to transfer to the chair, did not progress gait this session. Pt could benefit from SNF. Goals Bed Mobility Goal Standby Assistance Transfer Goal Standby Assistance,Front Wheeled Walker Gait Goal Standby Assistance,Front Wheel Walker Gait Distance 25 Days to Meet Goals 5 Frequency of Treatment Frequency Of Treatment Once a Day Treatment Plan Physical Therapy Treatment Plan Bed Mobility Training,Transfer Training,Gait Training, Therapeutic Exercise,Balance Retraining,Discharge Planning, Hot or Cold Pack,Neuromuscular Re-ed,Coordination Retraining ,Manual Therapy Precautions Other Precautions droplet precautions. Recommendations To Nursing Amount of Assist Needed 1 Person Assist Discharge Recommendations PT Discharge Recommendations SNF Rehab Transportation Needs at Discharge Wheelchair/Cabulance
--- NOTE | 2024-09-27 11:09 | CM.DPC ---
DCP Continued: Reviewed EMR and team rounds for pt?s medical status. Per rounds, a barium swallow scheduled for today, 09/27 at 11:30am. [facility] still reviewing pt for acceptance. Plan: Anticipating discharge to Rehab, pending acceptance and medical clearance. CM Team will continue to follow for coordination of discharge plans. HIMA Alan
[2024-09-27] MEDS: PIPERACILLIN/TAZO 3.375 GM in SODIUM CHLORIDE 0.9% 100 ML IV ×2 (11:15→18:39)
[2024-09-27 16:00] VITALS: BP 141/69; PULSE 67; RESP 18; TEMP 36.3; O2SAT 93
--- NOTE | 2024-09-27 16:04 | ST.SWALLOW ---
Visit Care Team Role Provider Type Amilcar Gilbert MD Primary Care Provider Non-Staff Specialty: Internal Medicine Address: [address] [facility], [place], [address] Email: Han Coy DO Emergency Provider Physician Referring Provider Specialty: Emergency Medicine Address: [address] [place] [address], [id number] Email: [email or web address] Admit Provider Physician Attending Provider Specialty: Internal Medicine Address: [address] [place] [address], [id number] Email: [email or web address] Modified Barium Swallow Study CHARGING PLUG PLACER Modified Barium Swallow Study Start: 09/27/24 12:56 Freq: Status: Active Protocol: Document 09/27/24 12:56 SS (Rec: 09/27/24 14:03 SS [id number]) Modified Barium Swallow Study Total Time Visit Start Time 11:30 Visit Stop Time 12:00 Total Visit Minutes [address] Zaire Rodrigues Reason for Referral Dysphagia Setting Setting Acute Care Patient Information Identification Type Name,Date of Patient History Per H&P on 09/22/24, 59-year- old male with past medical history of hypertension, BPH and Parkinson's disease presents with complain of shortness of breath and cough. Per the patient's report, the patient was seen here yesterday with similar symptoms. The patient was found to have rhinovirus and was stable to be discharged back to his assisted living. However when the patient arrived to his assisted living , the patient has increasing shortness of breath, wheezing and coughing. The patient state that his cough was only mildly productive. The patient also admit to have some subjective fever but denies any chills, nausea, vomiting or diarrhea. Pt was seen for a clinical swallowing evaluation during which he demonstrated overt s/sx of aspiration re: throat clearing and coughing with thin liquids, puree, and minced and moist textures. Baseline diet is regular and thin. Pt denied history of dysphagia or recurrent PNA. He was referred to speech pathology for evaluation of swallowing function, including Modified Barium Swallow Study (MBSS), to visualize and assess swallow function and anatomy, determine aspiration risk, make appropriate and updated diet and treatment recommendations, as well as to identify need for additional referrals. Current diet is NPO . Subjective Observations Reduced cognition and significant dysarthria and hypophonia noted in the setting of advanced PD. Patient is alert and oriented. Oral motor evaluation revealed missing dentition, lingual and labial weakness and incoordination, and presence of mild tremors. Pt on room air without need for supplemental oxygen today. Pt was seated in the fluoroscopy chair with directions and procedures described for him. He indicated he understood and agreed to proceed. Patient Positioning Position View Lateral Imaging Lateral View Textures Administered Trials Presented Thin Liquid via Spoon (IDDSI 0 ),Moderately Thick Liquid via Spoon (IDDSI 3),Puree (IDDSI 4 ) Barium Tablet No The IDDSI Framework Protocol: IDDSI.1 Oral Impairment Source: The Modified Barium Swallow Impairment Profile (MBSImP??) Lip Closure No labial escape Tongue Control During Bolus Hold Posterior escape of less than half of bolus Bolus Transport/Lingual Motion Slowed tongue motion Oral Residue Residue collection on oral structures Initiation of Pharyngeal Swallow Bolus head at posterior laryngeal surface of epiglottis Additional Oral Impairment Observations Moderate impairment. Oral acceptance of bolus was WFL. Patient demonstrated adequate labial seal. Bolus formation was disorganized and inefficient. Anterior- posterior transit of the bolus was sluggish/slowed. Mastication was prolonged. There were moderate amounts of oral residue requiring multiple attempts at AP transit to propel posteriorly. Oral bolus control was mildly reduced. Pharyngeal Impairment Source: The Modified Barium Swallow Impairment Profile (MBSImP??) Soft Palate Elevation No bolus between soft palate & pharyngeal wall Laryngeal Elevation Min.sup.move. thyroid cart. w/ min.approx.arytenoids to epiglot.petiole Anterior Hyoid Excursion Partial anterior movement Epiglottic Movement No inversion Laryngeal Vestibular Closure Incomplete; narrow column air/ contrast in laryngeal vestibule Pharyngeal Stripping Wave Present - diminished Pharyngoesophageal Segment Opening Partial distention/partial duration; partial obstruction of flow Tongue Base Retraction Wide column of contrast/air betwn tongue base & post. pharyngeal wall Pharyngeal Residue Majority of contrast within/on pharyngeal structures Location Diffuse (>3 areas) Additional Pharyngeal Impairment Severe impairment. Swallow was Observations initiated with liquids and solids at or below the valleculae. Velopharyngeal closure was WFL. Hyoid/ laryngeal elevation was judged to be reduced. The epiglottis did invert, though very minimally and only with heavier boluses. Tongue base retraction was reduced. Pharyngeal stripping wave was significantly reduced. Cricopharyngeal opening appeared to impede bolus flow into the esophagus, though somewhat difficult to definitely discern given severity of pharyngeal stripping impairment. Post- swallow residue was severe, primarily at the base of tongue, posterior pharyngeal wall, valleculae and pyriform sinuses. Pt did not sensate to residue and did not attempt to clear. Aspiration occurred during the swallow with thin liquids by teaspoon. Aspiration was not sensed. A cued cough and throat clear were ineffective in clearing the aspirated material from the airway. Penetration occurred with honey thick liquids and puree and did reach the level of the vocal folds and ranged from transient to deep. A cued cough and second swallow was very minimally effective in clearing some of the penetrated material. Of note, pt fatigued quickly following several sips of liquid with cough and throat clearing becoming less effective as study progressed. The following compensatory strategies were trialed with the following results: - chin tuck: did not eliminate penetration, though appeared to reduce depth of penetration ; did not appear to significantly reduce pharyngeal residue - repeat swallow: some material was cleared, though not all - Oral hold (3 seconds) and Hard and fast swallow: did not appear to improve timing of swallow initiation and did not appear to reduce penetration. Penetration / Aspiration Scale (PAS): Thin 7: Material enters the airway, passes below the vocal folds, and is not ejected from the airway despite effort Honey / Moderately Thick 5: Material enters the airway, contacts the vocal folds, and is not ejected from the airway Pudding / Semi-solid 5: Material enters the airway, contacts the vocal folds, and is not ejected from the airway A/P View The IDDSI Framework Protocol: IDDSI.1 Clinical Impressions Dysphagia Type Oral,Pharyngeal Findings Pt presented with moderate- severe oropharyngeal dysphagia . Oral phase deficits c/b by prolonged and disorganized bolus formation in addition to slowed AP transit; these deficits resulted in moderate amounts of oral residue primarily across semi-solids requiring multiple attempts by pt to propel posteriorly prior to swallow initiation. Pharyngeal phase deficits c/b delayed swallow initiation with thin liquids (initiated at valleculae or below) and reduced hyolaryngeal elevation /excursion resulting in sluggish and incomplete epiglottic inversion. Base of tongue retraction and pharyngeal stripping wave were notably reduced, resulting in severe pharyngeal residue at the base of tongue, posterior pharyngeal wall, valleculae, and pyriform sinus across solid consistencies. Pt unable to clear it with cued coughing, throat clearing , and mutiple swallows despite multiple attempts. Pt was visualized with x1 instances of silent aspiration with spoon sip of thin liquids. Consistent penetration was noted with honey-thick liquids in additional trials, ranging from transient to deep reaching the level of the vocal folds. Multiple strategies were trialed; a chin tuck and oral hold were not effective in eliminating or reducing depth of penetration consistently. Given discussion with MD, currently recommend continuation of NPO status with free ice chip protocol given the severity of pharyngeal weakness resulting in visualized silent aspiration, deep penetration, and notable residue which increases pt's risk of aspiration. Pt will benefit from frequent oral care to minimize colonization of oral pathogens that can increase pt 's risk of developing aspiration pneumonia if aspirated. Pt may benefit from initiation of a structured swallowing exercise program to address to aforementioned oropharyngeal deficits and improve cough strength for airway protection if overall health status improved and is endurance increases. Recommend goals of care discussion with MD and discussion re: meeting current nutrition/hydration needs. Will continue to follow closely during acute stay for dysphagia management and monitor for respiratory status changes. Rehabilitation Potential Fair Patient Appropriate for Therapy Yes Recommendations Diet Diet Order NPO Medication Recommendation Not Recommended by Mouth Aspiration Precautions Recommended Precautions Frequent Rest Periods,Chin Tuck Treatment Plan Therapy Recommendations Inpatient Speech Therapy, Outpatient Speech Therapy Recommended Referrals Dietary Consult Therapy Strategy Recommendations Sitting Upright (90 deg),Tilt Head Left,Chin Tuck,Double Swallow Placement Recommendation After Discharge [facility] Facility Additional Recommendations/Comments Ice chip protocol to promote oral hygiene and reduce risk of swallow strength decompensation.
--- NOTE | 2024-09-27 16:43 | DIET.CONS ---
Dietary Consultation Note Admission Date: 09/22/2024 20:14 Assessment: 59 y M admitted for rhinovirus, hypoxia, PMH of parkinson's disease. RD screened for LOS. MBSS completed. [facility] NPO. Was on diet order during admission with recorded PO intakes 75-100%. Made NPO yesterday. Reports no unintended weight loss. Weight loss noted in chart to be 8.8%. Ht: 177.8 cm Wt: 86.5 kg BMI: 27.7 UBW: 94.801 kg on 07/14/24 (-8.8% weight loss in 3 months, severe) Last BM: 09/26/24 (09/26/24 17:00) MNA: 12 Solo Score: 17 Diet: 09/26/24 19:17 NPO Diet Diet Modifications: crush pills in applesauce- chin tuck NPO Type: NPO except for Meds Nutrition Percent Meal Consumed 75% 09/25/24 18:00 Labs: RBC 4.63 X10^6/uL (4.5-5.9) 09/26/24 05:15 Hgb 13.3 g/dL (13.5-17.5) L 09/26/24 05:15 Hct 38.6 % (41-53) L 09/26/24 05:15 Creatinine 0.68 mg/dL (0.66-1.25) 09/26/24 05:15 Lactate 1.4 mmol/L (0.7-2.1) 09/22/24 18:51 NT-Pro-B Natriuret Pep 288 pg/mL (<125) H 09/22/24 18:51 Nutrition Diagnosis: Inadequate oral intake r/t swallowing difficulties aeb NPO per ST Interventions: 1. [facility] discussion pending. Will f/u tomorrow for nutrition plan. Electronically Signed by: Syeda Pedro 09/27/24 16:43 Clinical Dietitian [address] [address]
--- NOTE | 2024-09-27 17:49 | P.CALLCOV_ITS ---
Call Coverage Note Note Narrative of Care Provided: Long goals of care discussion with patient and son this evening. Spent time going over aspiration and his multi system atrophy. That he may be acutely weaker due to his recent illness and presentation. Patient feels as if he is getting stronger, and was not thrilled at the idea of an NG tube at this time. He would like to continue current management, no NG tube, and wait for repeat assessment with speech therapy after a couple of days. Also discussed with son over the phone, Delvin, who stated that his POLST is accurate based on their prior discussion and he would be okay with temporary feeding but not termite exterminator feeding (PEG, etc). At this time, will proceed to continue NPO with exceptions for his critical medications (sinemet) understanding the risks of aspirating this. Will continue IV fluids for now as well, with repeat swallow evaluation later this week after some further antibiotics. I spent 25 minutes involved with the above advanced care planning including discussion with son on patient on MSA, current hospitalization and possible outcomes outlined above.
[2024-09-27 20:00] VITALS: BP 167/82; PULSE 73; RESP 17; TEMP 36.2; O2SAT 94
[2024-09-27] MEDS: TAMSULOSIN 0.4 MG CAPSULE PO (20:40)
[2024-09-28] VITALS (7 sets, daily range): BP systolic 99–186; BP diastolic 57–93; PULSE 62–73; RESP 13–20; TEMP 35.9–36.4; O2SAT 91–98
--- NOTE | 2024-09-28 00:35 | PC.NURSE ---
pt hypertensive w/ a blood pressure of 186/93. pt is asymptomatic, denies pain or headache. Dr. Ruff has been notified. ordered hydralazine PRN for SBP above 180.
[2024-09-28] MEDS: HYDRALAZINE 20 MG/ML VIAL 10 MG IV (00:43)
[2024-09-28] MEDS: SODIUM CHLORIDE 0.9% 1,000 ML 125 ML IV ×2 (00:53→18:40)
[2024-09-28] MEDS: PIPERACILLIN/TAZO 3.375 GM in SODIUM CHLORIDE 0.9% 100 ML IV ×3 (02:23→18:39)
[2024-09-28 06:02] LABS: BUN Creatinine Ratio 36.8 (6-22); Blood Urea Nitrogen 28 mg/dL (9-20); Calcium 8.8 mg/dL (8.4-10.2); Carbon Dioxide 25 mmol/L (22-32); Chloride 109 mmol/L (98-107); Estimated Glomerular Filt Rate > 60 mL/min (>60); Glucose 99 mg/dL (80-110); HEMOLYSIS < 15 (0-50); Magnesium 2.1 mg/dL (1.6-2.3); Potassium 3.4 mmol/L (3.4-5.1); Sodium 139 mmol/L (137-145)
[2024-09-28 06:19] LABS: Add Manual Diff / Slide Review NO; Basophils Absolute Auto 0 /uL (0-100); Basophils Percent Auto 0.4 % (0-2); Eosinophils Absolute Auto 0 /uL (0-450); Eosinophils Percent Auto 0.8 % (2-4); Hematocrit 39.8 % (41-53); Hemoglobin 13.5 g/dL (13.5-17.5); Lymphocytes Absolute Auto 900 /uL (1100-4500); Mean Corpuscular HGB Conc 33.9 % (30-36); Mean Corpuscular Hemoglobin 28.4 PG (26-34); Mean Corpuscular Volume 83.8 fL (80-100); Monocytes Absolute Auto 400 /uL (0-900); Monocytes Percent Auto 6.9 % (3-14); Neutrophils Absolute Auto 4800 /uL (1500-7000); Neutrophils Percent Auto 76.9 % (50-75); Platelet Count 285 X10^3/uL (150-400); Red Blood Cell Count 4.75 X10^6/uL (4.5-5.9); Red Cell Distribution Width 12.8 % (11.6-14.8); White Blood Cell Count 6.3 X10^3/uL (4.5-11.0)
--- NOTE | 2024-09-28 07:27 | P.PN_ITS ---
Subjective Subjective Interval history: Narrative of Care Provided: Long goals of care discussion with patient and son this evening. Spent time going over aspiration and his multi system atrophy. That he may be acutely weaker due to his recent illness and presentation. Patient feels as if he is getting stronger, and was not thrilled at the idea of an NG tube at this time. He would like to continue current management, no NG tube, and wait for repeat assessment with speech therapy after a couple of days. Also discussed with son over the phone, Delvin, who stated that his POLST is accurate based on their prior discussion and he would be okay with temporary feeding but not penitentiary feeding (PEG, etc). At this time, will proceed to continue NPO with exceptions for his critical medications (sinemet) understanding the risks of aspirating this. Will continue IV fluids for now as well, with repeat swallow evaluation later this week after some further antibiotics. S: He remains weak. Difficult to speak. Exam Vital Signs (past 8 hours): - 09/28/24 00:00 09/28/24 00:43 09/28/24 01:13 Temperature 96.9 F L Pulse Rate 66 66 65 Respiratory Rate 16 Blood Pressure 186/93 H 186/93 H 145/75 H Pulse Oximetry 92 Fraction of Inspired Oxygen 21 SaO2/FiO2 Ratio 442 Oxygen Delivery Method Room Air Oxygen Flow Rate 0 Narrative Exam Narrative: NAD, alert and oriented. Very slow and muffled speech. He appears chronically ill. Lungs are clear, normal rate and effort. Some rohonchi. Heart is regular, no murmur gallop or rub. Abdomen is soft, non distended. Extremities are free of edema. Objective Imaging Multiple studies:: Radiologist's impression: ECHO: The left ventricle is normal in size and wall thickness. The ejection fraction is estimated to be 70-75%. There are no obvious focal wall motion abnormalities noted but poor endocardial definition reduces the sensitivity for the detection of such. Diastolic parameters suggest probable normal left ventricular diastolic function and normal filling pressures. The right ventricle is normal in size and function. Pulmonary artery pressures cannot be estimated because of the lack of a measurable TR jet velocity. The left atrial size is normal. There is no significant valvular heart disease. The aortic root is normal size. CXR: Generalized interstitial prominence can be seen, which appears slightly worse than on the examination the prior day. The appearance is consistent with a viral process. Please consider pulmonary edema in a patient of this age, however. Labs 09/28/24 05:05 09/28/24 05:05 Labs: Laboratory Results - last 24 hr 09/28/24 05:05 WBC 6.3 RBC 4.75 Hgb 13.5 Hct 39.8 L MCV 83.8 MCH 28.4 MCHC 33.9 RDW 12.8 Plt Count 285 Neut % (Auto) 76.9 H Lymph % (Auto) 15.0 L [facility] % (Auto) 6.9 Eos % (Auto) 0.8 L Baso % (Auto) 0.4 Neut # (Auto) 4800 Lymph # (Auto) 900 L [facility] # (Auto) 400 Eos # (Auto) 0 Baso # (Auto) 0 Sodium 139 Potassium 3.4 Chloride 109 H Carbon Dioxide 25 BUN 28 H Creatinine 0.76 Estimated GFR > 60 BUN/Creatinine Ratio 36.8 H Glucose 99 Calcium 8.8 Magnesium 2.1 PFSH Medical History Constipation BPH (benign prostatic hyperplasia) Hypertension Parkinsons disease Social History household members: none Smoking Status: Unknown if ever smoked Assessment & Plan Assessment & Plan narrative: 1. Acute respiratory failure with hypoxemia. Present on admission and active. 2. Bacterial pneumonia on presumed viral pneumonia. Present on admission and active. 3. Asthma exacerbation. Present on admission and active. 2. Severe dysphagia, present on admission and active. 3. BPH, present on admission and stable. - continue flomax. 4. Hypertension, present on admission and stable. ?- stopped home atenolol as he is also on propranolol. Also added lisinopril. 5. Multisystem atrophy (progressive), present on admission and stable. ?- continue home sinemet. PLAN: -will discuss LOC (PEG, NGT, enteral support) again with family. -NPO except ice chips. -Continue Abx (Zosyn). DVT prophylaxis hep SQ Code: DNR, surrogate is patient's son Time-Based Coding :: [TOTAL MINUTES] spent with patient and on the chart (including review of chart, obtaining history, exam, reviewing outside data, placing orders, documenting exam and treatment plan, and counseling patient) on [DATE].
[2024-09-28] MEDS: CARBIDOPA-LEVODOPA 25/100 TABLET 3 EACH PO ×3 (08:34→20:41)
[2024-09-28] MEDS: lisinopriL 10 MG TABLET PO (08:34)
[2024-09-28] MEDS: MULTIVITAMIN 1 TABLET 1 TAB PO (08:34)
[2024-09-28] MEDS: PROPRANOLOL 10 MG TABLET 20 MG PO (08:34)
[2024-09-28] MEDS: CHOLECALCIFEROL (VITAMIN D3) 1,000 UNIT TABLET 1000 UNIT PO (08:34)
[2024-09-28] MEDS: FINASTERIDE 5 MG TABLET PO (08:34)
[2024-09-28] MEDS: FUROSEMIDE 40 MG TABLET PO (08:34)
[2024-09-28] MEDS: HEPARIN 5,000 UNIT/ML VIAL 5000 UNIT SUBCUT ×2 (08:35→20:41)
[2024-09-28] MEDS: FLUTICASONE 120 SPRAY/16 GM SPRAY.SUSP NASAL (08:41)
--- NOTE | 2024-09-28 11:10 | PT.IPTN ---
Current Diagnoses Chronic obstructive pulmonary disease with (acute) exacerbation (09/22/24) Physical Therapy Treatment Note M2 PT-IP Current Condition Start: 09/25/24 10:44 Freq: NEEDED Status: Active Protocol: Document 09/25/24 10:45 MB (Rec: 09/25/24 11:51 MB [id number]) Physical Therapy Current Condition Current Condition Evaluation Date 09/25/24 Treatment Diagnosis ARF and PNA M3 PT-IP Subjective Start: 09/25/24 10:44 Freq: NEEDED Status: Active Protocol: Document 09/28/24 11:30 TS (Rec: 09/28/24 11:38 TS [id number]) Subjective Physical Therapy Visit Type Type Treatment Note Visit Start Time 11:10 Visit Stop Time 11:30 Number of FRONT END JAVA DEVELOPER Visits 2 Physical Therapy Visit Comments Patient Comments Pt found resting in bed, he is agreeable to PT. M4 PT-IP Mobility and Gait Start: 09/25/24 10:44 Freq: NEEDED Status: Active Protocol: Document 09/28/24 11:30 TS (Rec: 09/28/24 11:38 TS [id number]) PT-Bed Mobility Assessment Supine to Sit Supine to Sit Moderate Assistance,1 Person Assistance PT-Transfer Assessment Sit to and From Stand Sit to and from Stand Maximum Assistance,1 Person Assistance Equipment Transfer Assistive Device Gait Belt,Front Wheeled Walker Orthotic/Prosthetic Devices or Brace: No Transfers Transfer Destination Bedside Commode Transfer Technique Stand Step Pivot Transfer Ability Level of Assist Maximum Assistance,1 Person Assistance Comments Mobility Comments Supine to sit ModA for uprighting trunk with CHIEF CLINICAL OFFICER. Pt scoots to EOB with difficulty. STS with FWW MaxA x1. Stand step pivot to the commode MaxA , pt has x1 LOB requriing MaxA for stability. Pt was left on commode with nursing. Gait Assessment Gait Gait Assistance Required: Maximum Assistance,1 Person Assist Distance (Feet) 2 Able to Maintain Weight Bearing Status Yes During Gait Assistive Devices Assistive Device Gait Belt,Front Wheeled Walker Orthotic/Prosthetic Devices or Brace: No Gait Deviations General Gait Pattern Festinating,Flexed Trunk Factors Limiting Gait Function Factors Limiting Gait Function Decreased Activity Tolerance, Incoordination,Poor Balance PT-Balance Assessment Sitting Balance and Reactions Static Sitting Balance Ability Good Dynamic Sitting Balance Ability Fair Standing Balance and Reactions Static Standing Balance Ability Poor Dynamic Standing Balance Ability Poor Device Used RW M5 PT-IP Objective Assessments Start: 09/25/24 10:44 Freq: NEEDED Status: Active Protocol: Document 09/25/24 10:45 MB (Rec: 09/25/24 11:51 MB [id number]) Orientation Orientation/Cognition Level of Alertness Alert Orientation Name,Age,Birthday,Year,Place Safety Awareness Decreased Safety Awareness Memory Description No Deficits Noted Comments Pt has communication barriers from [facility] but it does not appear that he is cognitively impaired, may benefit from more formal cognitive assessment from OT Gross Range of Motion Upper Extremity ROM Assessment Bilaterally Impaired Lower Extremity ROM Assessment Bilaterally Impaired Strength Upper Extremity Strength Assessment Bilaterally Impaired Lower Extremity Strength Assessment Bilaterally Impaired Comments Strength Comments Limited range and strength all joints and pt does not tolerate formal assessment today given acute respiratory illness and great effort he puts into log rolling, getting to EOB and up to walker and chair today Coordination Assessment Gross Coordination Gross Coordination Impaired Sensation Assessment Comments Sensation Comments Not tested today Other Assessments Other Other Assessments Increased flexor tone in general, mild, and may be from current decreased mobility M7 PT-IP Assessment and Plan Start: 09/25/24 10:44 Freq: NEEDED Status: Active Protocol: Document 09/28/24 11:30 TS (Rec: 09/28/24 11:38 TS [id number]) PT Summary Assessment and Plan Potential Rehabilitation Potential Good Summary Impairments ROM,Strength,Balance, Coordination,Bed Mobility, Transfers,Gait,Activity Tolerance Progress Towards Goals Slow Progress - Other Assessment Summary Pt is making slow progress with his mobility. He requires ModA for bed mobility. He has poor standing balance and requries Maxa for transfer to the commode. PT continues to recommend SNF. Goals Bed Mobility Goal Standby Assistance Transfer Goal Standby Assistance,Front Wheeled Walker Gait Goal Standby Assistance,Front Wheel Walker Gait Distance 25 Days to Meet Goals 5 Frequency of Treatment Frequency Of Treatment Once a Day Treatment Plan Physical Therapy Treatment Plan Bed Mobility Training,Transfer Training,Gait Training, Therapeutic Exercise,Balance Retraining,Discharge Planning, Hot or Cold Pack,Neuromuscular Re-ed,Coordination Retraining ,Manual Therapy Precautions Other Precautions droplet precautions. Recommendations To Nursing Amount of Assist Needed 1 Person Assist Discharge Recommendations PT Discharge Recommendations SNF Rehab Transportation Needs at Discharge Wheelchair/Cabulance
--- NOTE | 2024-09-28 14:33 | DIET.PN1 ---
Dietary Progress Note Assessment: Per hospitalist note - goals of care discussed and pt would not like enteral nutrition at this time. Pt would like to wait for repeat ST assessment. Today is NPO day 3. Will continue to follow for plan of care. Ht: 177.8 cm Wt: 86.5 kg BMI: 27.7 Last BM: 09/28/24 (09/28/24 12:00) MNA: 12 Solo Score: 13 Diet: 09/26/24 19:17 NPO Diet Diet Modifications: crush pills in applesauce- chin tuck NPO Type: NPO except for Meds Labs: RBC 4.75 X10^6/uL (4.5-5.9) 09/28/24 05:05 Hgb 13.5 g/dL (13.5-17.5) 09/28/24 05:05 Hct 39.8 % (41-53) L 09/28/24 05:05 Creatinine 0.76 mg/dL (0.66-1.25) 09/28/24 05:05 Lactate 1.4 mmol/L (0.7-2.1) 09/22/24 18:51 NT-Pro-B Natriuret Pep 288 pg/mL (<125) H 09/22/24 18:51 Electronically Signed by: Syeda Pedro 09/28/24 14:33 Clinical Dietitian [address] [id number]
--- NOTE | 2024-09-28 15:05 | OT.IP.TRT ---
Current Diagnoses Chronic obstructive pulmonary disease with (acute) exacerbation (09/22/24) Occupational Therapy Treatment Note M2 OT-IP Current Condition Start: 09/26/24 13:05 Freq: Status: Active Protocol: Document 09/26/24 13:05 CGR (Rec: 09/26/24 13:25 CGR [id number]) Occupational Therapy Current Condition Current Condition Evaluation Date 09/26/24 Treatment Diagnosis acute respiratory failure, PNA Diagnosis Onset Date 09/22/24 Post Operative Precautions Other Precautions droplet precautions. M3 OT- IP Subjective and Pain Start: 09/26/24 13:05 Freq: Status: Active Protocol: Document 09/28/24 15:07 CCC (Rec: 09/28/24 15:15 CCC [id number]) OT- Subjective Occupational Therapy Visit Type Type Treatment Note Visit Start Time 14:38 Visit Stop Time 15:05 Occupational Therapy Visit Comments Patient Comments Pt agreed to work on standing and also requesting to get back to bed. Pt pointing at his right hip and complaining of pain, nurse notified. OT Pain Assessment Pain When Pain Assessed At Rest Pain Present Pain Present Pain Reported Location Right Hip Pain Behaviors Facial Grimacing,Holding Area M4 OT- IP ADL's Start: 09/26/24 13:05 Freq: Status: Active Protocol: Document 09/26/24 13:05 CGR (Rec: 09/26/24 13:25 CGR [id number]) OT LUC-Guru-Yrmiemz Comments OT Self-Feeding Comments not meal time but per ST, pt will be NPO d/t aspiration. OT ADL-Grooming General Evaluation Grooming Ability Standby Assistance Areas Needing Assistance Combing/Brushing Hair,Face Washing Comments OT Grooming Comments standing at sink OT ADL-Oral Care Comments Oral Care Comments not performed, pt states he does not have teeth. OT ADL-Dressing General Eval Upper Body Dressing Ability Total Assistance Areas Needing Assistance Underpants/Brief Comments OT Dressing Comments after sitting on BSC OT ADL-Toileting General Evaluation Toileting Ability Total Assistance Comments OT Toileting Comments Pt sat on BSC but was unable to have BM. Pt did urinate with some urine going into condom cath and some going into the BSC. OT ADL-Bathing Comments OT Bathing Comments not performed. M5 OT- IP IADL's Start: 09/26/24 13:05 Freq: Status: Active Protocol: Document 09/26/24 13:05 CGR (Rec: 09/26/24 13:25 CGR [id number]) OT-Instrumental Activities of Daily Living Deficits IADL Deficits Identified Deficits Home Safety Awareness Awareness of Need for Assistance at Home Good Awareness Ability to Problem Solve Emergency Able to Problem Solve Situations Medication Management Medication Management Caregiver Administers Money Management Money Management Caregiver Provides Assistance Meal Preparation Meal Preparation Caregiver Provides Assist Brown Stock Washer Brown Stock Washer Caregiver Provides Assist Driving Driving Comments Pt does not drive M6 OT- IP Functional Cognition Start: 09/26/24 13:05 Freq: Status: Active Protocol: Document 09/28/24 15:07 [facility] (Rec: 09/28/24 15:15 [facility] [id number]) Cognitive Factors Limiting Selfcare Function Cognitive Comments Cognitive Assessment Comments Pt able to follow commands for mobility needs. Pt needing occasional reminder to use at least one hand to push up from the recliner when coming to stand. M7 OT- IP Mobility and Balance Start: 09/26/24 13:05 Freq: Status: Active Protocol: Document 09/28/24 15:07 [facility] (Rec: 09/28/24 15:15 [facility] [id number]) OT- Bed Mobility Assessment Sit to Supine Sit to Supine Assist Maximum Assistance,1 Person Assistance OT-Transfer Assessment Sit to and From Stand Sit to and from Stand Maximum Assistance,1 Person Assistance Transfers Transfer Ability Moderate Assistance,Maximum Assistance,1 Person Assistance Technique Transfer Destination Bed,Chair Transfer Technique Stand Step Pivot Devices Transfer Assistive Devices Gait Belt,Front Wheeled Walker Comments Mobility Comments Pt having difficulty to scoot forwards in the recliner and needing MODA at times. MAX Ax1 to stand and MODA/MAX A x1 to transfer back to bed. OT- Balance Assessment Sitting Balance and Reactions Static Sitting Balance Ability Fair Dynamic Sitting Balance Ability Fair Standing Balance and Reactions Static Standing Balance Ability Poor Dynamic Standing Balance Ability Poor M8 OT- IP Objective Assessments Start: 09/26/24 13:05 Freq: Status: Active Protocol: Document 09/26/24 13:05 CGR (Rec: 09/26/24 13:25 CGR [id number]) OT Gross Range of Motion Upper Extremity Range of Motion Assessment Within Functional Limits OT Strength Upper Extremity Strength Assessment Within Functional Limits Comments Strength Comments 4+/5 OT- Coordination Assessment Upper Extremity Finger to Nose Test Within Functional Limits Finger Tapping Test Within Functional Limits Comments Coordination Comments coordination is slow OT-Muscle Tone Assessment Muscle Tone WNL Yes OT Sensation Assessment Edema Edema Absent M9 OT- IP Assessment and Plan Start: 09/26/24 13:05 Freq: Status: Active Protocol: Document 09/28/24 15:07 [facility] (Rec: 09/28/24 15:15 [facility] [id number]) OT Summary Assessment and Plan Potential Rehabilitation Potential Good Analytic Complexity at Evaluation Moderate Summary OT Impairments Balance,Functional Mobility, Grooming,Dressing,Toileting, Bathing,Toilet Transfers, Shower Transfers,Activity Tolerance Progress Towards Goals Slow Progress due to Pain,Slow Progress due to Medical Issues Assessment Summary Pt needing more assist to stand today and pt complaining of right hip pain, nursing notified. Pt to go to skilled rehab when medically stable. Goals Grooming Goal Independent Dressing Goal Independent Toileting Goal Minimal Assistance Bathing Goal Minimal Assistance,Moderate Assistance Toilet Transfer Goal Minimal Assistance Shower Transfer Goal Minimal Assistance Days to Meet Goals 30 Frequency of Treatment Other frequency 5x a week Treatment Plan OT Treatment Plan ADL Training,Functional Mobility,Therapeutic Exercises ,Patient/Family Education, Discharge Planning Discharge Recommendations OT Discharge Recommendations SNF Rehab Transportation Needs at Discharge Wheelchair/Cabulance
[2024-09-28] MEDS: ACETAMINOPHEN 325 MG TABLET 650 MG PO (15:15)
--- NOTE | 2024-09-28 15:16 | ST.IPDYTX ---
Visit Care Team Role Provider Type Amilcar Gilbert MD Primary Care Provider Non-Staff Specialty: Internal Medicine Address: [address], [place], [address] Email: Han Coy DO Emergency Provider Physician Referring Provider Specialty: Emergency Medicine Address: [address] [place] [address], [id number] Email: [email or web address] Pasquale Acosta MD Admit Provider Physician Attending Provider Specialty: Internal Medicine Address: [address] [place] [address], [address] Email: [email or web address] CARD BRUSHER Dysphagia Treatment CARD BRUSHER Dysphagia Treatment Start: 09/26/24 13:16 Freq: Status: Active Protocol: Document 09/28/24 14:02 SS (Rec: 09/28/24 14:04 SS [id number]) Dysphagia Treatment Session Time Visit Start Time 13:35 Visit Stop Time 14:00 Total Visit Minutes 25 Visit Information Visit Number 2 Setting Assessment Location Acute Care Visit Type Note Type Treatment Note Next Note Type Next Note Type Treatment Note Patient Information Identification Type Name,Date of Subjective Observations Goals of care following MBSS results completed yesterday with MD. Per discussion, ?pt feels as if he is getting stronger, and was not thrilled at the idea of an NG tube at this time. He would like to continue current management, no NG tube, and wait for repeat assessment with speech therapy after a couple of days . 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 Chart reviewed and MD consulted prior to session. MD reported that pt has been weaned off of supplemental oxygen and is on RA. Pt remains NPO with exceptions for his critical medications ( sinemet). Ongoing IV fluids and antibiotics. Pt sitting upright in armchair upon CARD BRUSHER arrival. He presented with reduced frequency of wet cough and voice was mildly stronger. Alertness and responsiveness appear to have increased from initial evaluation. Pt was able answer all CARD BRUSHER questions with 1-2 word responses. Treatment Liquids Trialed Ice chips,Thin (IDDSI 0) Administration Type Tea Spoon,Dependent Feeding Oral Strategies Upright at 90 degrees Pharyngeal Strategies Sitting Upright (90 deg) Treatment Activities CARD BRUSHER completed therapeutic trials of ice chips and water via tsp with dynamic assessment of s/sx of dysphagia. provided pt education re: MBSS results and POC based on pt progress and overall health status. Communicated with MD re: POC and recommendations. The IDDSI Framework Protocol: IDDSI.1 Assessment Patient Response to Treatment Poor Rehab Potential Poor Assessment of Improvement CARD BRUSHER provided verbal and visual education re: normal swallow anatomy and physiology and compared this to pt?s current swallow function/anatomy/ physiology. Reviewed high aspiration risk and high risk for developing aspiration pneumonia given overall health status and compromised immune system. Pt expressed understanding of results and verbalized agreement to current plan of care of remaining NPO and further discussing goal of care. Pt continues to present with intermittent wet cough and continues coughing up secretions. During therapeutic trial of ice chips and water via tsp, pt demonstrated good oral acceptance and containment and apparently disorganized and slow bolus manipulation. Pharyngeal phase cannot be assessed at bedside though subjectively appeared effortful and pt required 2-3 swallows per bolus at times. Pt demonstrated consistent s/ sx of aspiration with all PO re: coughing. Cough strength is judged to be weak increasing aspirated related complications. No perceptible change in vocal quality following swallows. Pt does not appear safe for a PO diet at this time with exception of an ice chip protocol to promote oral hygiene and reduce risk of swallow strength decompensation. With ice chips, recommend thorough oral care before, fully upright positioning, 1:1 supervision, and discontinuation with any s/sx of aspiration or discomfort. Given discussion with MD, recommend goal of care be further discussed with pt and son. Although swallowing function may improve over the next few days as overall health status improves, it may also remain at current level or decline given degenerative nature of pt's disease and multi system atrophy. Recommendations Recommendations Continue Current Diet Diet Order NPO Medication Recommendations Not Recommended by Mouth Comments Ice chip protocol (see above for precautions) Treatment Plan Placement Recommendation after Discharge Assisted Facility Appropriate for Continued Therapy Yes Therapy Recommendations Continue monitoring swallowing function in order ot determine whether pt is appropriate for a repeat MBSS Referrals/Other Recommended Referrals Dietary Consult
[2024-09-28] MEDS: POTASSIUM CHLORIDE IN WATER 10 MEQ/100 ML PIGGYBACK 100 MEQ IV ×2 (15:19→16:34)
--- NOTE | 2024-09-28 15:21 | CM.DPNOTE ---
DCP note TECHNICAL ADMINISTRATOR reviewed EMR. Per Khalida from [facility], can accept pt, secured auth, and could accept . Per Dr. Montelongo, will continue to attempt to figure out nutrition plan/goals of care/speech re-eval. plans to talk with pt and son this afternoon and will update CM team tomorrow about the medical POC moving forward. Per RN, pt currently does not want NG tube but is back and forth about it. NPO? But taking pills with apple sauce. PASRR Previously completed. P: dc to [facility] once medically stable/there is a nutrition plan vs potentially return to [place] on hospice (if hospice, ref needed) vs [facility] (if HH, need resumption order for PT/OT/Speech)? Medical POC continues, CM team will continue to follow closely. RODRIGUEZ Velasco
[2024-09-28] MEDS: SODIUM CHLORIDE 0.9% FLUSH 10 ML IV (20:41)
[2024-09-28] MEDS: TAMSULOSIN 0.4 MG CAPSULE PO (20:41)
[2024-09-29] VITALS (12 sets, daily range): BP systolic 130–197; BP diastolic 70–92; PULSE 61–82; RESP 14–20; TEMP 36–36.4; O2SAT 90–96
[2024-09-29] MEDS: PIPERACILLIN/TAZO 3.375 GM in SODIUM CHLORIDE 0.9% 100 ML IV ×3 (03:10→19:37)
[2024-09-29] MEDS: SODIUM CHLORIDE 0.9% 1,000 ML 125 ML IV ×2 (04:24→16:06)
[2024-09-29] MEDS: ALBUTEROL 2.5 MG/3 ML NEB (ADULT) INH (05:08)
[2024-09-29 05:25] LABS: Add Manual Diff / Slide Review NO; Basophils Absolute Auto 0 /uL (0-100); Basophils Percent Auto 0.4 % (0-2); Eosinophils Absolute Auto 200 /uL (0-450); Eosinophils Percent Auto 3.5 % (2-4); Hematocrit 40.8 % (41-53); Hemoglobin 13.6 g/dL (13.5-17.5); Lymphocytes Absolute Auto 1300 /uL (1100-4500); Lymphocytes Percent Auto 20.6 % (25-40); Mean Corpuscular HGB Conc 33.3 % (30-36); Mean Corpuscular Hemoglobin 28.1 PG (26-34); Mean Corpuscular Volume 84.5 fL (80-100); Monocytes Absolute Auto 500 /uL (0-900); Monocytes Percent Auto 8.2 % (3-14); Neutrophils Absolute Auto 4300 /uL (1500-7000); Neutrophils Percent Auto 67.3 % (50-75); Platelet Count 288 X10^3/uL (150-400); Red Blood Cell Count 4.83 X10^6/uL (4.5-5.9); Red Cell Distribution Width 13.5 % (11.6-14.8); White Blood Cell Count 6.4 X10^3/uL (4.5-11.0)
[2024-09-29 05:49] LABS: BUN Creatinine Ratio 34.2 (6-22); Blood Urea Nitrogen 27 mg/dL (9-20); Calcium 8.5 mg/dL (8.4-10.2); Carbon Dioxide 21 mmol/L (22-32); Chloride 111 mmol/L (98-107); Estimated Glomerular Filt Rate > 60 mL/min (>60); Glucose 86 mg/dL (80-110); HEMOLYSIS < 15 (0-50); Potassium 3.5 mmol/L (3.4-5.1); Sodium 140 mmol/L (137-145)
[2024-09-29] MEDS: HYDRALAZINE 20 MG/ML VIAL 10 MG IV ×2 (07:56→21:55)
[2024-09-29] MEDS: POTASSIUM CHLORIDE IN WATER 10 MEQ/100 ML PIGGYBACK 100 MEQ IV ×2 (08:00→09:31)
[2024-09-29] MEDS: HEPARIN 5,000 UNIT/ML VIAL 5000 UNIT SUBCUT ×2 (09:09→21:03)
[2024-09-29] MEDS: lisinopriL 10 MG TABLET PO (09:09)
[2024-09-29] MEDS: PROPRANOLOL 10 MG TABLET 20 MG PO (09:09)
[2024-09-29] MEDS: FINASTERIDE 5 MG TABLET PO (09:09)
[2024-09-29] MEDS: CARBIDOPA-LEVODOPA 25/100 TABLET 3 EACH PO ×3 (09:09→21:03)
[2024-09-29] MEDS: MULTIVITAMIN 1 TABLET 1 TAB PO (09:09)
[2024-09-29] MEDS: CHOLECALCIFEROL (VITAMIN D3) 1,000 UNIT TABLET 1000 UNIT PO (09:09)
[2024-09-29] MEDS: FUROSEMIDE 40 MG TABLET PO (09:09)
[2024-09-29] MEDS: FLUTICASONE 120 SPRAY/16 GM SPRAY.SUSP NASAL (09:10)
--- NOTE | 2024-09-29 10:10 | PT.IPTN ---
Current Diagnoses Chronic obstructive pulmonary disease with (acute) exacerbation (09/22/24) Physical Therapy Treatment Note M2 PT-IP Current Condition Start: 09/25/24 10:44 Freq: NEEDED Status: Active Protocol: Document 09/25/24 10:45 MB (Rec: 09/25/24 11:51 MB [id number]) Physical Therapy Current Condition Current Condition Evaluation Date 09/25/24 Treatment Diagnosis ARF and PNA M3 PT-IP Subjective Start: 09/25/24 10:44 Freq: NEEDED Status: Active Protocol: Document 09/29/24 10:45 TS (Rec: 09/29/24 11:13 TS [id number]) Subjective Physical Therapy Visit Type Type Treatment Note Visit Start Time 10:10 Visit Stop Time 10:34 Number of FRONT OFFICE ADMINISTRATOR Visits 3 Physical Therapy Visit Comments Patient Comments Pt found resting in bed, he is agreeable to PT. M4 PT-IP Mobility and Gait Start: 09/25/24 10:44 Freq: NEEDED Status: Active Protocol: Document 09/29/24 10:45 TS (Rec: 09/29/24 11:13 TS [id number]) PT-Bed Mobility Assessment Supine to Sit Supine to Sit Moderate Assistance,1 Person Assistance Scooting Scooting to Edge of Bed Maximum Assistance PT-Transfer Assessment Sit to and From Stand Sit to and from Stand Moderate Assistance,1 Person Assistance Equipment Transfer Assistive Device Gait Belt,Front Wheeled Walker Orthotic/Prosthetic Devices or Brace: No Comments Mobility Comments Supine to sit ModA for uprighting trunk. Scoots to EOB MaxA. STS with FWW ModA. Pt ambulates ~10' ModA with FWW, has LOB x1. Pt sat back in the chair, was left with nursing. Gait Assessment Gait Gait Assistance Required: Moderate Assistance,1 Person Assist Distance (Feet) 10 Able to Maintain Weight Bearing Status Yes During Gait Assistive Devices Assistive Device Gait Belt,Front Wheeled Walker Orthotic/Prosthetic Devices or Brace: No Gait Deviations General Gait Pattern Festinating,Flexed Trunk Factors Limiting Gait Function Factors Limiting Gait Function Decreased Activity Tolerance, Incoordination,Poor Balance PT-Balance Assessment Sitting Balance and Reactions Static Sitting Balance Ability Fair Dynamic Sitting Balance Ability Fair Standing Balance and Reactions Static Standing Balance Ability Poor Dynamic Standing Balance Ability Poor Device Used RW M5 PT-IP Objective Assessments Start: 09/25/24 10:44 Freq: NEEDED Status: Active Protocol: Document 09/25/24 10:45 MB (Rec: 09/25/24 11:51 MB [id number]) Orientation Orientation/Cognition Level of Alertness Alert Orientation Name,Age,Birthday,Year,Place Safety Awareness Decreased Safety Awareness Memory Description No Deficits Noted Comments Pt has communication barriers from [facility] but it does not appear that he is cognitively impaired, may benefit from more formal cognitive assessment from OT Gross Range of Motion Upper Extremity ROM Assessment Bilaterally Impaired Lower Extremity ROM Assessment Bilaterally Impaired Strength Upper Extremity Strength Assessment Bilaterally Impaired Lower Extremity Strength Assessment Bilaterally Impaired Comments Strength Comments Limited range and strength all joints and pt does not tolerate formal assessment today given acute respiratory illness and great effort he puts into log rolling, getting to EOB and up to walker and chair today Coordination Assessment Gross Coordination Gross Coordination Impaired Sensation Assessment Comments Sensation Comments Not tested today Other Assessments Other Other Assessments Increased flexor tone in general, mild, and may be from current decreased mobility M7 PT-IP Assessment and Plan Start: 09/25/24 10:44 Freq: NEEDED Status: Active Protocol: Document 09/29/24 10:45 TS (Rec: 09/29/24 11:13 TS [id number]) PT Summary Assessment and Plan Potential Rehabilitation Potential Good Summary Impairments ROM,Strength,Balance, Coordination,Bed Mobility, Transfers,Gait,Activity Tolerance Progress Towards Goals Slow Progress - Other Assessment Summary Pt continues to require ModA for bed mobility. He progressed his gait to ~10' ModA for balance. PT continues to recommend SNF. Goals Bed Mobility Goal Standby Assistance Transfer Goal Standby Assistance,Front Wheeled Walker Gait Goal Standby Assistance,Front Wheel Walker Gait Distance 25 Days to Meet Goals 5 Frequency of Treatment Frequency Of Treatment Once a Day Treatment Plan Physical Therapy Treatment Plan Bed Mobility Training,Transfer Training,Gait Training, Therapeutic Exercise,Balance Retraining,Discharge Planning, Hot or Cold Pack,Neuromuscular Re-ed,Coordination Retraining ,Manual Therapy Precautions Other Precautions droplet precautions. Recommendations To Nursing Amount of Assist Needed 1 Person Assist Discharge Recommendations PT Discharge Recommendations SNF Rehab Transportation Needs at Discharge Wheelchair/Cabulance
--- NOTE | 2024-09-29 12:04 | DI.RAD.S_ITS ---
PROCEDURE: XR ABDOMEN 1V INDICATIONS: Dobhoff/NGT placement TECHNIQUE: One view of the abdomen acquired. COMPARISON: None. FINDINGS: Surgical changes and devices: NG tube tip is below the left hemidiaphragm and is in the expected location of stomach. Bowel: Bowel gas pattern is nonspecific for obstruction. No gross free air is seen. Residual oral contrast material is noted within the colon loops. Soft tissues: No suspicious abdominal calcifications. Visualized solid organ contours appear normal in size. Bones: No suspicious bony lesions. IMPRESSION: NG tube tip is in the stomach lumen below the left hemidiaphragm. Nonspecific bowel gas pattern for obstruction. No gross free air. Dictated by: Bang Paredes M.D. on 09/29/2024 at 12:35 Approved by: Bang aPredes M.D. on 09/29/2024 at 12:36
--- NOTE | 2024-09-29 12:34 | DIET.PN1 ---
Dietary Progress Note Assessment: Enteral nutrition will be started today. NG tube placed Met with pt at bedside who reports eating less than normal in last 1-3 months. Eats 3 meals a day, but only about 50% of the plate, compared to his usual 100%. Pt at risk for refeeding syndrome d/t NPO 4 days and acute protein calorie malnutrition. Nutrition focused physical exam- limited exam -Mild loss temples and clavicle region -Mild loss buccal and orbital fat pads Ht: 177.8 cm Wt: 82.5 kg BMI: 27.7 UBW: 94.801 kg on 07/14/24 per chart, 90 kg per pt in last 3 months (8% weight loss within 3 months) Last BM: 09/28/24 (09/28/24 12:00) MNA: 12 Solo Score: 14 Diet: 09/26/24 19:17 NPO Diet Diet Modifications: crush pills in applesauce- chin tuck NPO Type: NPO except for Meds Labs: RBC 4.83 X10^6/uL (4.5-5.9) 09/29/24 05:11 Hgb 13.6 g/dL (13.5-17.5) 09/29/24 05:11 Hct 40.8 % (41-53) L 09/29/24 05:11 Creatinine 0.79 mg/dL (0.66-1.25) 09/29/24 05:11 Lactate 1.4 mmol/L (0.7-2.1) 09/22/24 18:51 NT-Pro-B Natriuret Pep 288 pg/mL (<125) H 09/22/24 18:51 Nutrition Diagnosis: Severe acute on chronic protein calorie malnutrition r/t swallowing difficulties and inadequate oral intake as evidenced by 8% weight loss within 3 months (severe), 50% or less of estimated energy needs in >1 month per diet recall (severe), severe dysphagia, multisystem atrophy Interventions: 1. Recc Jevity 1.2 starting at 10 mL/hr and advancing 10 mL Q8-10H as tolerated until goal rate of 65 mL/hr. Feed provides 1260 mL fluids. Flush 180 mL Q6H. Feeds+flush+IV meets fluids needs. Goal rate provides 1872 kcals (94% EER) and 87 g protein (87% EER) 2. Recc Mg, Phos, and K+ be drawn and monitored for first 3 days of feeds. EER: 2000 kcals (25 kcals/kg), 100 g protein (1.25g/kg per PCM), 2475 mL fluid (30mL/kg) Monitoring/Evaluations: TF, tolerance, plan of care Electronically Signed by: Syeda Pedro 09/29/24 12:34 Clinical Dietitian [address] [address]
--- NOTE | 2024-09-29 12:51 | PM.PN.1 ---
Subjective Subjective Interval history: Spoke with son yesterday and the patient. The plan is to place a Dobbhoff and see if he tolerates this and perform enteral tube feedings for several days to see if he has any general improvement of strength or clinical swallowing. He does not want a PEG tube, so if he does not improve he would then had towards hospice for level of care. Exam Vital Signs (past 8 hours): - 09/29/24 05:11 09/29/24 07:56 09/29/24 08:00 Temperature 97.3 F L Pulse Rate 74 81 79 Respiratory Rate 18 20 Blood Pressure 197/92 H 197/92 H Pulse Oximetry 96 91 Oxygen Delivery Method Room Air Oxygen Flow Rate 0 Fraction of Inspired Oxygen 21 09/29/24 08:26 09/29/24 09:09 Temperature Pulse Rate 82 82 Respiratory Rate Blood Pressure 157/78 H 157/78 H Pulse Oximetry Oxygen Delivery Method Oxygen Flow Rate Fraction of Inspired Oxygen Fraction of Inspired Oxygen 21 SaO2/FiO2 Ratio 452 Oxygen Delivery Method Room Air Oxygen Flow Rate 0 Narrative Exam Narrative: NAD, alert chronically ill in appearance. He was slow, soft, and muffled speech which is hard to understand. Lungs are clear, normal rate and effort. Heart is regular, no murmur gallop or rub. Abdomen is soft, non distended. Extremities are free of edema. General extremity muscular atrophy. Objective Labs 09/29/24 05:11 09/29/24 05:11 Labs: Laboratory Results - last 24 hr 09/29/24 05:11 WBC 6.4 RBC 4.83 Hgb 13.6 Hct 40.8 L MCV 84.5 MCH 28.1 MCHC 33.3 RDW 13.5 Plt Count 288 Neut % (Auto) 67.3 Lymph % (Auto) 20.6 L [place] % (Auto) 8.2 Eos % (Auto) 3.5 Baso % (Auto) 0.4 Neut # (Auto) 4300 Lymph # (Auto) 1300 [place] # (Auto) 500 Eos # (Auto) 200 Baso # (Auto) 0 Sodium 140 Potassium 3.5 Chloride 111 H Carbon Dioxide 21 L BUN 27 H Creatinine 0.79 Estimated GFR > 60 BUN/Creatinine Ratio 34.2 H Glucose 86 Calcium 8.5 Magnesium 2.0 PFSH Medical History Constipation BPH (benign prostatic hyperplasia) Hypertension Parkinsons disease Social History household members: none Smoking Status: Unknown if ever smoked Assessment & Plan Assessment & Plan narrative: 1. Acute respiratory failure with hypoxemia. Present on admission and active. 2. Bacterial pneumonia on presumed viral pneumonia. Present on admission and improving. 3. Asthma exacerbation. Present on admission and improved. 2. Severe dysphagia, present on admission and active. 3. BPH, present on admission and stable. - continue flomax. 4. Hypertension, present on admission and stable. ?- stopped home atenolol as he is also on propranolol. Also added lisinopril. 5. Multisystem atrophy (progressive), present on admission and stable. ?- continue home sinemet. PLAN: -2-3 day trial of enteral feedings through a Dobbhoff. The patient does not want a PEG tube. If he fails to improve clinically in any way with bedside swallow evaluations he will likely go towards hospice after 2-3 days. -NPO except ice chips. -Discontinue Abx (Zosyn). Completed 7 day course. DVT prophylaxis hep SQ Code: DNR, surrogate is patient's son Time-Based Coding :: [TOTAL MINUTES] spent with patient and on the chart (including review of chart, obtaining history, exam, reviewing outside data, placing orders, documenting exam and treatment plan, and counseling patient) on [DATE].
--- NOTE | 2024-09-29 14:29 | ST.IPDYTX ---
Visit Care Team Role Provider Type Amilcar Gilbert MD Primary Care Provider Non-Staff Specialty: Internal Medicine Address: [address] [facility], [place], [address] Email: Han Coy DO Emergency Provider Physician Referring Provider Specialty: Emergency Medicine Address: [address] [place] [address], [id number] Email: [email or web address] Admit Provider Physician Attending Provider Specialty: Internal Medicine Address: [address] [place] [address], [address] Email: [email or web address] Dysphagia Treatment LABOR CREW SUPERVISOR Dysphagia Treatment Start: 09/26/24 13:16 Freq: Status: Active Protocol: Document 09/29/24 14:17 SS (Rec: 09/29/24 14:29 SS [id number]) Dysphagia Treatment Session Time Visit Start Time 12:50 Visit Stop Time 13:10 Total Visit Minutes 20 Visit Information Visit Number 3 Setting Assessment Location Acute Care Visit Type Note Type Treatment Note Next Note Type Next Note Type Treatment Note Patient Information Identification Type Name,Date of Subjective Observations Chart reviewed and MD consulted. Per MD report, NG tube started, with plan to move towards hospice level of care if no clinical improvements made within 2-3 days. Pt sitting upright in armchair upon LABOR CREW SUPERVISOR arrival. He presented with very minimal wet cough and voice was mildly stronger. However, ongoing wheezing noted at baseline. He continues to be alert and responsive today. Pt was again able answer all LABOR CREW SUPERVISOR questions with 1-2 word responses. Treatment Liquids Trialed Ice chips,Thin (IDDSI 0) Administration Type Tea Spoon Oral Strategies Upright at 90 degrees Pharyngeal Strategies Sitting Upright (90 deg) Treatment Activities LABOR CREW SUPERVISOR completed therapuetic trials of ice chips and water via tsp with dynamic assessment of s/sx of dysphagia. Communicated with MD and RN re: POC and recommendations. The IDDSI Framework Protocol: IDDSI.1 Assessment Patient Response to Treatment Poor Rehab Potential Poor Assessment of Improvement Pt continues to present with intermittent wet cough and continues to attempt to cough up secretions, though unable to clear without use of suction. During therapeutic trial of ice chips and water via tsp, pt demonstrated good oral acceptance and containment and apparently disorganized and slow bolus manipulation. Pharyngeal phase cannot be assessed objectively at bedside though subjectively appeared effortful and pt required 2-3 swallows per bolus at times. Pt demonstrated consistent s/ sx of aspiration with all PO re: coughing. Cough strength is judged to be weak increasing aspirated related complications. Likely inability to clear airway is consistent with MBSS results and seems to fatigue pt very quickly. Pt does not appear safe for a PO diet at this time given no clinical swallowing improvement since previous session. Recommend ice chip protocol to promote oral hygiene and increase comfort given current NPO status. Discussed POC with pt who is agreeable to ongoing NPO status with alternative means of nutrition/hydration via NG tube with ongoing monitoring of swallowing function for next several days . Recommendations Recommendations Continue Current Diet Diet Order NPO Medication Recommendations Not Recommended by Mouth Comments Ice chip protocol (see above for precautions) Treatment Plan Placement Recommendation after Discharge Care Home Care Facility,Home with Hospice Appropriate for Continued Therapy Yes Therapy Recommendations Continue monitoring swallowing function in order to determine whether pt is appropriate for a repeat MBSS
--- NOTE | 2024-09-29 16:42 | OT.IPNOTE ---
Pt NG tube running and not wanting to get up at this time. To check on pt tomorrow for OT.
[2024-09-29] MEDS: TAMSULOSIN 0.4 MG CAPSULE PO (21:04)
[2024-09-30] VITALS (10 sets, daily range): BP systolic 93–188; BP diastolic 44–83; PULSE 67–78; RESP 14–24; TEMP 35.9–36.6; O2SAT 91–97
[2024-09-30] MEDS: SODIUM CHLORIDE 0.9% 1,000 ML 125 ML IV ×2 (02:03→11:17)
[2024-09-30] MEDS: PIPERACILLIN/TAZO 3.375 GM in SODIUM CHLORIDE 0.9% 100 ML IV ×3 (02:10→18:57)
[2024-09-30] MEDS: HYDRALAZINE 20 MG/ML VIAL 10 MG IV (05:41)
[2024-09-30 07:12] LABS: Add Manual Diff / Slide Review NO; Basophils Absolute Auto 100 /uL (0-100); Basophils Percent Auto 0.9 % (0-2); Eosinophils Absolute Auto 500 /uL (0-450); Eosinophils Percent Auto 6.3 % (2-4); Hematocrit 39.1 % (41-53); Hemoglobin 13.4 g/dL (13.5-17.5); Lymphocytes Absolute Auto 1500 /uL (1100-4500); Lymphocytes Percent Auto 19.4 % (25-40); Mean Corpuscular HGB Conc 34.2 % (30-36); Mean Corpuscular Hemoglobin 28.6 PG (26-34); Mean Corpuscular Volume 83.8 fL (80-100); Monocytes Absolute Auto 700 /uL (0-900); Monocytes Percent Auto 9.8 % (3-14); Neutrophils Absolute Auto 4800 /uL (1500-7000); Neutrophils Percent Auto 63.6 % (50-75); Platelet Count 279 X10^3/uL (150-400); Red Blood Cell Count 4.67 X10^6/uL (4.5-5.9); Red Cell Distribution Width 13.4 % (11.6-14.8); White Blood Cell Count 7.5 X10^3/uL (4.5-11.0)
[2024-09-30 07:29] LABS: BUN Creatinine Ratio 21.7 (6-22); Blood Urea Nitrogen 15 mg/dL (9-20); Calcium 8.4 mg/dL (8.4-10.2); Carbon Dioxide 22 mmol/L (22-32); Chloride 108 mmol/L (98-107); Estimated Glomerular Filt Rate > 60 mL/min (>60); Glucose 110 mg/dL (80-110); HEMOLYSIS < 15 (0-50); Magnesium 1.8 mg/dL (1.6-2.3); Phosphorous 2.7 mg/dL (2.3-3.7); Potassium 3.2 mmol/L (3.4-5.1); Sodium 136 mmol/L (137-145)
--- NOTE | 2024-09-30 07:37 | P.PN_ITS ---
Subjective Subjective Interval history: Summary: Spoke with son yesterday and the patient. The plan is to place a Dobbhoff and see if he tolerates this and perform enteral tube feedings for several days to see if he has any general improvement of strength or clinical swallowing. He does not want a PEG tube, so if he does not improve he would then had towards hospice for level of care. Dobhoff placed 09/29 for a 2-3 day trial enteral feedings. S: he is tolerating a feeding tube which was placed on September 29, the plan is 2-3 days of enteral feeding to see if his swallow improves. If his swallow does not improve, would likely go to hospice, he does not want a PEG. His son David is helping with most of these plans. Exam Vital Signs (past 8 hours): - 09/30/24 00:00 09/30/24 04:00 09/30/24 05:41 Temperature 97.9 F 97.5 F L Pulse Rate 76 78 78 Respiratory Rate 14 20 Blood Pressure 136/64 188/83 H 188/83 H Pulse Oximetry 91 94 Oxygen Flow Rate 0 0 09/30/24 06:25 Temperature Pulse Rate 67 Respiratory Rate Blood Pressure 144/82 H Pulse Oximetry Oxygen Flow Rate Fraction of Inspired Oxygen 21 SaO2/FiO2 Ratio 452 Oxygen Delivery Method Room Air Oxygen Flow Rate 0 Narrative Exam Narrative: NAD, alert and oriented. Chronically ill in appearance, flat affect. He has slow, soft and slurred speech. Dobbhoff is in place through his nare. Lungs are clear, normal rate and effort. Heart is regular, no murmur gallop or rub. Abdomen is soft, non distended. Extremities are free of edema. Objective Labs 09/30/24 06:00 09/30/24 06:00 Labs: Laboratory Results - last 24 hr 09/30/24 06:00 WBC 7.5 RBC 4.67 Hgb 13.4 L Hct 39.1 L MCV 83.8 MCH 28.6 MCHC 34.2 RDW 13.4 Plt Count 279 Neut % (Auto) 63.6 Lymph % (Auto) 19.4 L Whitley % (Auto) 9.8 Eos % (Auto) 6.3 H Baso % (Auto) 0.9 Neut # (Auto) 4800 Lymph # (Auto) 1500 Whitley # (Auto) 700 Eos # (Auto) 500 H Baso # (Auto) 100 Sodium 136 L Potassium 3.2 L Chloride 108 H Carbon Dioxide 22 BUN 15 Creatinine 0.69 Estimated GFR > 60 BUN/Creatinine Ratio 21.7 Glucose 110 Calcium 8.4 Phosphorus 2.7 Magnesium 1.8 [facility] Medical History Constipation BPH (benign prostatic hyperplasia) Hypertension Parkinsons disease Social History household members: none Smoking Status: Unknown if ever smoked Assessment & Plan Assessment & Plan narrative: 1. Acute respiratory failure with hypoxemia. Present on admission and active. 2. Bacterial pneumonia on presumed viral pneumonia. Present on admission and improving. 3. Asthma exacerbation. Present on admission and improved. 2. Severe dysphagia, present on admission and active. 3. BPH, present on admission and stable. - continue flomax. 4. Hypertension, present on admission and stable. ?- stopped home atenolol as he is also on propranolol. Also added lisinopril. 5. Multisystem atrophy (progressive), present on admission and stable. ?- continue home sinemet. PLAN: -2-3 day trial of enteral feedings through a Dobbhoff. The patient does not want a PEG tube. If he fails to improve clinically in any way with bedside swallow evaluations he will likely go towards hospice after 2-3 days. -NPO except ice chips. -continue Abx (Zosyn). 09/27 start with at least 5 days (10/01 or 10/02) stop date. Was initially on Augmentin orally while in the hospital. Speech to not reassess him until Thursday, if he fails to improve substantially to the point that he could take an oral diet he we will likely pursue hospice because he does not want a PEG tube and can not have an NG-tube long-term. This plan was reviewed and really dictated by his son, David. DVT prophylaxis hep SQ Code: DNR, surrogate is patient's son Time-Based Coding :: [TOTAL MINUTES] spent with patient and on the chart (including review of chart, obtaining history, exam, reviewing outside data, placing orders, documenting exam and treatment plan, and counseling patient) on [DATE].
--- NOTE | 2024-09-30 07:47 | PC.NURSE ---
Pt hypertensive SBP >180 2x through night. Hydralazine given per PRN orders. BP returned to (slightly hypertensive) normal limits. (see MAR/documentation) Tube feeding advanced 10 ml/Q8 hrs toward goal of 65 ml/hr, currently running at 30 ml/hr. Pt states tolerating well, denies n/v.
[2024-09-30] MEDS: CHOLECALCIFEROL (VITAMIN D3) 1,000 UNIT TABLET 1000 UNIT PO (09:26)
[2024-09-30] MEDS: MULTIVITAMIN 1 TABLET 1 TAB PO (09:26)
[2024-09-30] MEDS: CARBIDOPA-LEVODOPA 25/100 TABLET 3 EACH PO ×3 (09:27→21:32)
[2024-09-30] MEDS: FUROSEMIDE 40 MG TABLET PO (09:27)
[2024-09-30] MEDS: FINASTERIDE 5 MG TABLET PO (09:27)
[2024-09-30] MEDS: HEPARIN 5,000 UNIT/ML VIAL 5000 UNIT SUBCUT ×2 (09:28→21:32)
[2024-09-30] MEDS: lisinopriL 10 MG TABLET PO (09:30)
[2024-09-30] MEDS: FLUTICASONE 120 SPRAY/16 GM SPRAY.SUSP NASAL (09:31)
[2024-09-30] MEDS: PROPRANOLOL 10 MG TABLET 20 MG PO (09:32)
--- NOTE | 2024-09-30 10:52 | DI.RAD.S_ITS ---
PROCEDURE: XR ABDOMEN 1V INDICATIONS: Dobhoff placement verfication TECHNIQUE: One view of the abdomen acquired. COMPARISON: [facility], CR, XR CHEST 1V, 09/22/2024, 18:23. [facility], CR, XR ABDOMEN 1V, 09/29/2024, 12:03. FINDINGS: Surgical changes and devices: Weighted tip feeding tube coils within the upper gastric body near the cardia. Bowel: Bowel gas pattern is nonspecific, without definite intestinal obstruction or evidence of perforation. Oral contrast of some sort is present again within the colon. Soft tissues: No suspicious abdominal calcifications. Visualized solid organ contours appear normal in size. Bones: No suspicious bony lesions. IMPRESSION: Weighted tip feeding tube coils within the upper gastric body. Intestinal obstruction is not seen. Dictated by: Navi Burch M.D. on 09/30/2024 at 13:11 Approved by: Navi Burch M.D. on 09/30/2024 at 13:14
--- NOTE | 2024-09-30 11:47 | DIET.PN1 ---
Addendum entered by Syeda Pedro 09/30/24 14:18: RN noted that 1,000 mL IV Sodium Chloride 0.9% started up again at 10AM this morning while dobhoff was getting replaced, ran for about 2 hours @125 mL/hr. TF were started again at 1300 and IV fluids were d/c. In the I&Os, intake still reflects full 1,000 mL being given to patient. Full 1,000 mL was not given. Only around 250 mL was given before order was d/c. Original Note: Dietary Progress Note Assessment: Per RN, pt was tolerating feeds. Mid-morning tube was clogged and pt getting replacement. TF off for now. Can be restarted at 30 mL/hr when tube placed again. Ht: 177.8 cm Wt: 82.5 kg BMI: 27.7 Last BM: 09/28/24 (09/28/24 12:00) MNA: 12 Solo Score: 14 Diet: 09/26/24 19:17 NPO Diet Diet Modifications: crush pills in applesauce- chin tuck NPO Type: NPO except for Meds 09/29/24 Lunch Tube Feeding Diet Diet Modifications: TF Supplement type: Jevity 1.2 angela TF mode of delivery: Continuous Starting flow rate mL/hr: 10 Flow rate goal mL/hr: 65 Titration Schedule to reach Goal Rate: 10 mL Q8H as tolerated Max total daily volume in mL: 1,560 Free fluid: 180 Free Water Frequency: Q6H Nutrition Percent Meal Consumed NPO 09/29/24 18:02 Percent Meal Consumed NPO 09/29/24 15:00 Type of Feeding Tube Dobhoff 09/30/24 07:00 Type of Feeding Tube Dobhoff 09/29/24 23:00 Type of Feeding Tube Dobhoff 09/29/24 12:45 Labs: RBC 4.67 X10^6/uL (4.5-5.9) 09/30/24 06:00 Hgb 13.4 g/dL (13.5-17.5) L 09/30/24 06:00 Hct 39.1 % (41-53) L 09/30/24 06:00 Creatinine 0.69 mg/dL (0.66-1.25) 09/30/24 06:00 Lactate 1.4 mmol/L (0.7-2.1) 11/28/24 18:51 NT-Pro-B Natriuret Pep 288 pg/mL (<125) H 09/22/24 18:51 Electronically Signed by: Syeda Pedro 09/30/24 11:47 Clinical Dietitian [address] [address]
--- NOTE | 2024-09-30 12:45 | ST.IPDYTX ---
Visit Care Team Role Provider Type Amilcar Gilbert MD Primary Care Provider Non-Staff Specialty: Internal Medicine Address: [address] [place], [address] Email: Han Coy DO Emergency Provider Physician Referring Provider Specialty: Emergency Medicine Address: [address] [place] [address], [address] Email: [email or web address] [email or web address] Provider Physician Attending Provider Specialty: Internal Medicine Address: [address] [place] [address], [address] Email: [email or web address] NEONATAL PEDIATRIC NURSE Dysphagia Treatment NEONATAL PEDIATRIC NURSE Dysphagia Treatment Start: 09/26/24 13:16 Freq: Status: Active Protocol: Document 09/30/24 12:29 SS (Rec: 09/30/24 12:45 SS [id number]) Dysphagia Treatment Session Time Visit Start Time 12:05 Visit Stop Time 12:28 Total Visit Minutes 23 Visit Information Visit Number 4 Setting Assessment Location Acute Care Visit Type Note Type Treatment Note Next Note Type Next Note Type Treatment Note Patient Information Identification Type Name,Date of Subjective Observations Chart reviewed and RN consulted. Pt tolerating NG tube. Pt sitting reclined in bed upon NEONATAL PEDIATRIC NURSE arrival. Assisted pt with upright positioning for PO trials. He presented with occasional wet cough and increased work of breathing and wheezing at baseline. Increased intelligibility and stronger voice at times. Pt reported his mouth feels dry. Discussed oral care plan with nursing as well as encouragement of 1-2 ice chips at a time for increased oral comfort. Treatment Liquids Trialed Ice chips,Thin (IDDSI 0) Administration Type Tea Spoon Oral Strategies Upright at 90 degrees Pharyngeal Strategies Sitting Upright (90 deg) Treatment Activities NEONATAL PEDIATRIC NURSE completed therapuetic trials of ice chips and water via tsp with dynamic assessment of s/sx of dysphagia. Communicated with MD and RN re: POC and recommendations. The IDDSI Framework Protocol: IDDSI.1 Assessment Patient Response to Treatment Poor Rehab Potential Poor Assessment of Improvement Pt present with very occasional wet cough, though unproductive, and increased work of breathing. During therapeutic trials of ice chips and water via tsp, pt demonstrated good oral acceptance and containment. AP transport and manipulation appeared to be within normal limits. Pharyngeal phase cannot be assessed objectively at bedside though subjectively appeared effortful and pt required 2-3 swallows per bolus at times. Pt demonstrated s/sx of aspiration with all PO re: coughing with most swallows of ice chips and all swallows of thin liquid via tsp. Reduced laryngeal elevation and anterior propulsion via palpation. Voice was wet and weak following swallows. Cough strength is judged to be weak and pt is likely unable to clear airway despite effort. Additionally, concern for silent aspiration with swallows that pt did not cough with given silent aspiration visualized on MBSS. Pt continues to be unsafe for a PO diet given no appreciable clinical swallowing improvements since MBSS was completed. Continue recommending ice chip protocol to promote oral hygiene and increase comfort given current NPO status. Discussed pt's current swallowing function and recommendations with MD who verbalized understanding. Recommendations Recommendations Continue Current Diet Diet Order NPO Medication Recommendations Not Recommended by Mouth Comments Ice chip protocol (see below for precautions) Aspiration Precautions Additional Precautions For ice chip protocol: fully upright, oral care before, 1:1 supervision Treatment Plan Placement Recommendation after Discharge Programming Development Project Manager Care Facility,Home with Hospice Appropriate for Continued Therapy Yes Therapy Recommendations Goals of care discussion with MD given no change in swallowing function since MBSS and high risk of development of aspiration pneumonia if PO diet was initiated given laryngeal aspiration visualized on MBSS and compromised immune system/ health status.
--- NOTE | 2024-09-30 15:05 | OT.IP.TRT ---
Current Diagnoses Chronic obstructive pulmonary disease with (acute) exacerbation (09/22/24) Occupational Therapy Treatment Note M2 OT-IP Current Condition Start: 09/26/24 13:05 Freq: Status: Active Protocol: Document 09/26/24 13:05 CGR (Rec: 09/26/24 13:25 CGR [id number]) Occupational Therapy Current Condition Current Condition Evaluation Date 09/26/24 Treatment Diagnosis acute respiratory failure, PNA Diagnosis Onset Date 09/22/24 Post Operative Precautions Other Precautions droplet precautions. M3 OT- IP Subjective and Pain Start: 09/26/24 13:05 Freq: Status: Active Protocol: Document 09/30/24 15:05 [facility] (Rec: 09/30/24 15:12 [facility] [id number]) OT- Subjective Occupational Therapy Visit Type Type Treatment Note Visit Start Time 14:30 Visit Stop Time 15:05 Occupational Therapy Visit Comments Patient Comments Pt agreed to get up to try to use the BSC. OT Pain Assessment Pain When Pain Assessed At Rest Pain Present Pain Present Pain Reported M5 OT- IP IADL's Start: 09/26/24 13:05 Freq: Status: Active Protocol: Document 09/26/24 13:05 CGR (Rec: 09/26/24 13:25 R [id number]) OT-Instrumental Activities of Daily Living Deficits IADL Deficits Identified Deficits Home Safety Awareness Awareness of Need for Assistance at Home Good Awareness Ability to Problem Solve Emergency Able to Problem Solve Situations Medication Management Medication Management Caregiver Administers Money Management Money Management Caregiver Provides Assistance Meal Preparation Meal Preparation Caregiver Provides Assist Soaker Soda Worker Soaker Soda Worker Caregiver Provides Assist Driving Driving Comments Pt does not drive M6 OT- IP Functional Cognition Start: 09/26/24 13:05 Freq: Status: Active Protocol: Document 09/30/24 15:05 [facility] (Rec: 09/30/24 15:12 [facility] [id number]) Cognitive Factors Limiting Selfcare Function Cognitive Comments Cognitive Assessment Comments Pt having difficulty to initiate his movements, weight shift , and needing increased time and assist for all needs. M7 OT- IP Mobility and Balance Start: 09/26/24 13:05 Freq: Status: Active Protocol: Document 09/30/24 15:05 [facility] (Rec: 09/30/24 15:12 [facility] [id number]) OT- Bed Mobility Assessment Sit to Supine Sit to Supine Assist Maximum Assistance,1 Person Assistance OT-Transfer Assessment Sit to and From Stand Sit to and from Stand Maximum Assistance,2 Person Assistance Transfers Transfer Ability Maximum Assistance,2 Person Assistance Technique Transfer Destination Bed,Bedside Commode,Chair Transfer Technique Stand Step Pivot Devices Transfer Assistive Devices None,Gait Belt,Front Wheeled Walker Comments Mobility Comments Pt having difficulty to scoot over to the edge of the bed and needing cues to bend his left knee up and push down on the bed so able to get closer to the edge of the bed. Heavy use of green pad to assist as well. MAXA X1 to get his trunk upright. MAXAx2 to stand to FWW and assist for balance, weight shifting and FWW guidance. Pt needing stand pivot from BSC to recliner MAX AX 2. Chair alarm placed on pt and call light given. OT- Balance Assessment Sitting Balance and Reactions Static Sitting Balance Ability Fair Dynamic Sitting Balance Ability Poor Standing Balance and Reactions Static Standing Balance Ability Poor Dynamic Standing Balance Ability Poor M8 OT- IP Objective Assessments Start: 09/26/24 13:05 Freq: Status: Active Protocol: Document 09/26/24 13:05 CGR (Rec: 09/26/24 13:25 CGR [id number]) OT Gross Range of Motion Upper Extremity Range of Motion Assessment Within Functional Limits OT Strength Upper Extremity Strength Assessment Within Functional Limits Comments Strength Comments 4+/5 OT- Coordination Assessment Upper Extremity Finger to Nose Test Within Functional Limits Finger Tapping Test Within Functional Limits Comments Coordination Comments coordination is slow OT-Muscle Tone Assessment Muscle Tone WNL Yes OT Sensation Assessment Edema Edema Absent M9 OT- IP Assessment and Plan Start: 09/26/24 13:05 Freq: Status: Active Protocol: Document 09/30/24 15:05 [facility] (Rec: 09/30/24 15:12 [facility] [id number]) OT Summary Assessment and Plan Potential Rehabilitation Potential Good Analytic Complexity at Evaluation Moderate Summary OT Impairments Balance,Functional Mobility, Grooming,Dressing,Toileting, Bathing,Toilet Transfers, Shower Transfers,Activity Tolerance Progress Towards Goals Slow Progress due to Pain,Slow Progress due to Medical Issues,Slow Progress due to Activity Tolerance Assessment Summary Pt needing more assist for transfer today with MAXAX 2 with FWW and for stand pivot transfer. Pt to go to skilled rehab when medically stable. Goals Grooming Goal Independent Dressing Goal Independent Toileting Goal Minimal Assistance Bathing Goal Minimal Assistance,Moderate Assistance Toilet Transfer Goal Minimal Assistance Shower Transfer Goal Minimal Assistance Days to Meet Goals 30 Frequency of Treatment Other frequency 5x a week Treatment Plan OT Treatment Plan ADL Training,Functional Mobility,Therapeutic Exercises ,Patient/Family Education, Discharge Planning Other Treatment Recommendations and Next Transfer to [facility] with MODA X 2 Treatment Focus with FWW. Discharge Recommendations OT Discharge Recommendations SNF Rehab Transportation Needs at Discharge Wheelchair/Cabulance
--- NOTE | 2024-09-30 15:31 | DI.RAD.S_ITS ---
PROCEDURE: XR ABDOMEN 1V INDICATIONS: Dobhoff misplaced and replaced, placement verfication TECHNIQUE: One view of the abdomen acquired. COMPARISON: [facility], CR, XR ABDOMEN 1V, 09/30/2024, 11:34. FINDINGS: Surgical changes and devices: A feeding tube is present with a gentle coil in the proximal stomach. The tip is directed right lateral. Bowel: Bowel gas pattern is nonspecific, nonobstructive. Soft tissues: No suspicious abdominal calcifications. Visualized solid organ contours appear normal in size. Bones: No suspicious bony lesions. IMPRESSION: Tip of the feeding tube is likely in the gastric antrum. Dictated by: Alma Rosa Martinez M.D. on 09/30/2024 at 16:10 Approved by: Alma Rosa Martinez M.D. on 09/30/2024 at 16:11
--- NOTE | 2024-09-30 15:52 | CM.DPNOTE ---
DCP Cont Reviewed chart. Patient discussed in multidisciplinary rounds. Patient will have a 2-3 day trial of enteral feedings through a Dobbhoff. The patient does not want a PEG tube according to Dr Montelongo. If patient fails to improve clinically in any way with bedside swallow evaluations patient will likely go towards hospice after 2-3 days, back to [place] [facility] vs SNF [facility] ABDIRIZAK benefit. CM team following clinical course closely. Khalida, kandy at [facility] updated with above. DARINEL
[2024-09-30] MEDS: POTASSIUM CHLORIDE 20 MEQ/15 ML UDC 40 MEQ PO ×2 (17:00→21:34)
--- NOTE | 2024-09-30 17:05 | PT.IPTN ---
Current Diagnoses Chronic obstructive pulmonary disease with (acute) exacerbation (09/22/24) Physical Therapy Treatment Note M2 PT-IP Current Condition Start: 09/25/24 10:44 Freq: NEEDED Status: Active Protocol: Document 09/25/24 10:45 MB (Rec: 09/25/24 11:51 MB [id number]) Physical Therapy Current Condition Current Condition Evaluation Date 09/25/24 Treatment Diagnosis ARF and PNA M3 PT-IP Subjective Start: 09/25/24 10:44 Freq: NEEDED Status: Active Protocol: Document 09/30/24 17:05 AB (Rec: 09/30/24 17:41 AB [id number]) Subjective Physical Therapy Visit Type Type Treatment Note Visit Start Time 17:05 Visit Stop Time 17:15 Number of PHOTOGRAPHIC LABORATORY TECHNICIAN Visits 0 Physical Therapy Visit Comments Patient Comments agreeable to do PT M4 PT-IP Mobility and Gait Start: 09/25/24 10:44 Freq: NEEDED Status: Active Protocol: Document 09/30/24 17:05 AB (Rec: 09/30/24 17:41 AB [id number]) PT-Transfer Assessment Sit to and From Stand Sit to and from Stand Maximum Assistance,1 Person Assistance,2 Person Assistance Equipment Transfer Assistive Device Gait Belt,Front Wheeled Walker Orthotic/Prosthetic Devices or Brace: No Comments Mobility Comments pt sitting on the chair. nurse in room. pt stated that they have been managing NG tubing for awhile now but ok to see pt. pt agreed to get up and wants to stay up on the chair afterwards. agreed to walk. completed sit to stand max A x 1-2 and max cues. pt ambulated ~ 3 ft using fWW max A x 1-2 and max cues and with chair follow. requires max A for weight shifting to be able to move LE forward. pt sat back on chair. dental technician metal came in to do x-ray on pt. Left pt with nurse and dental technician metal. Gait Assessment Gait Gait Assistance Required: Maximum Assistance,1 Person Assist,2 Person Assist Distance (Feet) 3 Able to Maintain Weight Bearing Status Yes During Gait Assistive Devices Assistive Device Gait Belt,Front Wheeled Walker Orthotic/Prosthetic Devices or Brace: No Gait Deviations General Gait Pattern Decreased Stride Length, Decreased Feet Clearance,Step- to Gait Factors Limiting Gait Function Factors Limiting Gait Function Decreased Activity Tolerance, Decreased Strength,Difficulty Following Directions,Limited Range of Motion,Poor Balance, Poor Safety Awareness, Respiratory Distress M5 PT-IP Objective Assessments Start: 09/25/24 10:44 Freq: NEEDED Status: Active Protocol: Document 09/25/24 10:45 MB (Rec: 09/25/24 11:51 MB [id number]) Orientation Orientation/Cognition Level of Alertness Alert Orientation Name,Age,Birthday,Year,Place Safety Awareness Decreased Safety Awareness Memory Description No Deficits Noted Comments Pt has communication barriers from [facility] but it does not appear that he is cognitively impaired, may benefit from more formal cognitive assessment from OT Gross Range of Motion Upper Extremity ROM Assessment Bilaterally Impaired Lower Extremity ROM Assessment Bilaterally Impaired Strength Upper Extremity Strength Assessment Bilaterally Impaired Lower Extremity Strength Assessment Bilaterally Impaired Comments Strength Comments Limited range and strength all joints and pt does not tolerate formal assessment today given acute respiratory illness and great effort he puts into log rolling, getting to EOB and up to walker and chair today Coordination Assessment Gross Coordination Gross Coordination Impaired Sensation Assessment Comments Sensation Comments Not tested today Other Assessments Other Other Assessments Increased flexor tone in general, mild, and may be from current decreased mobility M6 PT-IP Treatment Start: 09/25/24 10:44 Freq: NEEDED Status: Active Protocol: Document 09/30/24 17:05 AB (Rec: 09/30/24 17:41 AB [id number]) Physical Therapy Treatment Education Education Provided Safety M7 PT-IP Assessment and Plan Start: 09/25/24 10:44 Freq: NEEDED Status: Active Protocol: Document 09/30/24 17:05 AB (Rec: 09/30/24 17:41 AB [id number]) PT Summary Assessment and Plan Potential Rehabilitation Potential Fair Summary Impairments Pain,ROM,Strength,Balance, Coordination,Sensation,Tone, Cognition,Bed Mobility, Transfers,Gait,Activity Tolerance Progress Towards Goals Slow Progress due to Medical Issues,Slow Progress due to Activity Tolerance Assessment Summary pt requiring max A x 1-2 with sit to stand and ambulated ~ 3 ft using FWW max A x 1-2 and max cues. pt lives at [facility] and may go back to [facility] if staff will be able to provide necessary assistance to pt. Pt will require 18/05 assist. will continue to assess progress. Goals Bed Mobility Goal Standby Assistance Transfer Goal Standby Assistance,Front Wheeled Walker Gait Goal Standby Assistance,Front Wheel Walker Gait Distance 25 Days to Meet Goals 5 Frequency of Treatment Frequency Of Treatment Once a Day Treatment Plan Physical Therapy Treatment Plan Bed Mobility Training,Transfer Training,Gait Training, Therapeutic Exercise,Balance Retraining,Discharge Planning, Hot or Cold Pack,Neuromuscular Re-ed,Coordination Retraining ,Manual Therapy Precautions Other Precautions droplet precautions. Recommendations To Nursing Amount of Assist Needed 2 Person Assist Discharge Recommendations PT Discharge Recommendations SNF Rehab Transportation Needs at Discharge Wheelchair/Cabulance
--- NOTE | 2024-09-30 17:06 | DI.RAD.S_ITS ---
PROCEDURE: XR ABDOMEN 1V INDICATIONS: unable to get dobhoff secured, NGT placed TECHNIQUE: One view of the abdomen acquired. COMPARISON: [facility], CR, XR ABDOMEN 1V, 09/30/2024, 15:32. FINDINGS: Surgical changes and devices: NG tube tip is below the left hemidiaphragm and is in the expected location of stomach lumen. Bowel: Bowel gas pattern is nonspecific for obstruction. No gross free air. Soft tissues: No suspicious abdominal calcifications. Visualized solid organ contours appear normal in size. Bones: No suspicious bony lesions. IMPRESSION: NG tube tip is in the stomach lumen below the left hemidiaphragm. No evidence of bowel obstruction or gross free air. Dictated by: Bang Paredes M.D. on 09/30/2024 at 17:43 Approved by: Bang Paredes M.D. on 09/30/2024 at 17:43
[2024-09-30] MEDS: TAMSULOSIN 0.4 MG CAPSULE PO (21:33)
[2024-09-30] MEDS: SODIUM CHLORIDE 0.9% FLUSH 10 ML IV (21:34)
[2024-10-01] VITALS (7 sets, daily range): BP systolic 83–145; BP diastolic 51–73; PULSE 64–79; RESP 18–21; TEMP 36.1–36.3; O2SAT 93–95
[2024-10-01] MEDS: PIPERACILLIN/TAZO 3.375 GM in SODIUM CHLORIDE 0.9% 100 ML IV (02:41)
[2024-10-01 06:52] LABS: Phosphorous 2.6 mg/dL (2.3-3.7)
[2024-10-01 06:53] LABS: BUN Creatinine Ratio 24.3 (6-22); Blood Urea Nitrogen 17 mg/dL (9-20); Calcium 8.6 mg/dL (8.4-10.2); Carbon Dioxide 22 mmol/L (22-32); Chloride 108 mmol/L (98-107); Estimated Glomerular Filt Rate > 60 mL/min (>60); Glucose 141 mg/dL (80-110); HEMOLYSIS < 15 (0-50); Potassium 3.5 mmol/L (3.4-5.1); Sodium 137 mmol/L (137-145)
[2024-10-01] MEDS: HEPARIN 5,000 UNIT/ML VIAL 5000 UNIT SUBCUT ×2 (08:46→20:59)
[2024-10-01] MEDS: polyethylene glycoL 3350 17 GM POWD.PACK PO (08:46)
[2024-10-01] MEDS: MULTIVITAMIN 1 TABLET 1 TAB PO (08:47)
[2024-10-01] MEDS: CARBIDOPA-LEVODOPA 25/100 TABLET 3 EACH PO ×3 (08:47→20:59)
[2024-10-01] MEDS: FINASTERIDE 5 MG TABLET PO (08:47)
[2024-10-01] MEDS: PROPRANOLOL 10 MG TABLET 20 MG PO (08:47)
[2024-10-01] MEDS: lisinopriL 10 MG TABLET PO (08:47)
[2024-10-01] MEDS: CHOLECALCIFEROL (VITAMIN D3) 1,000 UNIT TABLET 1000 UNIT PO (08:47)
[2024-10-01] MEDS: FUROSEMIDE 40 MG TABLET PO (08:49)
[2024-10-01] MEDS: FLUTICASONE 120 SPRAY/16 GM SPRAY.SUSP NASAL (08:50)
--- NOTE | 2024-10-01 11:00 | PT.IPTN ---
Current Diagnoses Chronic obstructive pulmonary disease with (acute) exacerbation (09/22/24) Physical Therapy Treatment Note M2 PT-IP Current Condition Start: 09/25/24 10:44 Freq: NEEDED Status: Active Protocol: Document 09/25/24 10:45 MB (Rec: 09/25/24 11:51 MB [id number]) Physical Therapy Current Condition Current Condition Evaluation Date 09/25/24 Treatment Diagnosis ARF and PNA M3 PT-IP Subjective Start: 09/25/24 10:44 Freq: NEEDED Status: Active Protocol: Document 10/01/24 11:24 TS (Rec: 10/01/24 11:33 TS [id number]) Subjective Physical Therapy Visit Type Type Treatment Note Visit Start Time 11:00 Visit Stop Time 11:20 Number of ORNAMENTAL METAL ERECTOR Visits 1 Physical Therapy Visit Comments Patient Comments Pt found resting in bed, he si agreeable to PT. M4 PT-IP Mobility and Gait Start: 09/25/24 10:44 Freq: NEEDED Status: Active Protocol: Document 10/01/24 11:24 TS (Rec: 10/01/24 11:33 TS [id number]) PT-Bed Mobility Assessment Supine to Sit Supine to Sit Moderate Assistance,1 Person Assistance Scooting Scooting to Edge of Bed Maximum Assistance PT-Transfer Assessment Sit to and From Stand Sit to and from Stand Maximum Assistance,1 Person Assistance Equipment Transfer Assistive Device Gait Belt,Front Wheeled Walker Orthotic/Prosthetic Devices or Brace: No Transfers Transfer Destination Chair Transfer Technique Stand Step Pivot Transfer Ability Level of Assist Maximum Assistance,1 Person Assistance Comments Mobility Comments Supine to sit ModA x1. STS x3 MaxA x1, pt had bm in bed, nursing called in to assist. Transfer to chair MaxA x1, pt has difficulty following cues. Pt was left in the chair, all needs met. Gait Assessment Gait Gait Assistance Required: Maximum Assistance,1 Person Assist Distance (Feet) 3 Able to Maintain Weight Bearing Status Yes During Gait Assistive Devices Assistive Device Gait Belt,Front Wheeled Walker Orthotic/Prosthetic Devices or Brace: No Gait Deviations General Gait Pattern Decreased Stride Length, Decreased Feet Clearance,Step- to Gait Factors Limiting Gait Function Factors Limiting Gait Function Decreased Activity Tolerance, Decreased Strength,Difficulty Following Directions,Limited Range of Motion,Poor Balance, Poor Safety Awareness, Respiratory Distress PT-Balance Assessment Sitting Balance and Reactions Static Sitting Balance Ability Fair Dynamic Sitting Balance Ability Poor Standing Balance and Reactions Static Standing Balance Ability Poor Dynamic Standing Balance Ability Poor Device Used RW M5 PT-IP Objective Assessments Start: 09/25/24 10:44 Freq: NEEDED Status: Active Protocol: Document 09/25/24 10:45 MB (Rec: 09/25/24 11:51 MB [id number]) Orientation Orientation/Cognition Level of Alertness Alert Orientation Name,Age,Birthday,Year,Place Safety Awareness Decreased Safety Awareness Memory Description No Deficits Noted Comments Pt has communication barriers from [facility] but it does not appear that he is cognitively impaired, may benefit from more formal cognitive assessment from OT Gross Range of Motion Upper Extremity ROM Assessment Bilaterally Impaired Lower Extremity ROM Assessment Bilaterally Impaired Strength Upper Extremity Strength Assessment Bilaterally Impaired Lower Extremity Strength Assessment Bilaterally Impaired Comments Strength Comments Limited range and strength all joints and pt does not tolerate formal assessment today given acute respiratory illness and great effort he puts into log rolling, getting to EOB and up to walker and chair today Coordination Assessment Gross Coordination Gross Coordination Impaired Sensation Assessment Comments Sensation Comments Not tested today Other Assessments Other Other Assessments Increased flexor tone in general, mild, and may be from current decreased mobility M6 PT-IP Treatment Start: 09/25/24 10:44 Freq: NEEDED Status: Active Protocol: Document 10/01/24 11:24 TS (Rec: 10/01/24 11:33 TS [id number]) Physical Therapy Treatment Education Education Provided Safety M7 PT-IP Assessment and Plan Start: 09/25/24 10:44 Freq: NEEDED Status: Active Protocol: Document 10/01/24 11:24 TS (Rec: 10/01/24 11:33 TS [id number]) PT Summary Assessment and Plan Potential Rehabilitation Potential Fair Summary Impairments Pain,ROM,Strength,Balance, Coordination,Sensation,Tone, Cognition,Bed Mobility, Transfers,Gait,Activity Tolerance Progress Towards Goals Slow Progress due to Medical Issues,Slow Progress due to Activity Tolerance Assessment Summary Kin continues to make slow progress with his mobility. He has difficulty following cues and directions at times. He requires MaxA x1 for STS and transfers. PT continues to recommend SNF. Goals Bed Mobility Goal Standby Assistance Transfer Goal Standby Assistance,Front Wheeled Walker Gait Goal Standby Assistance,Front Wheel Walker Gait Distance 25 Days to Meet Goals 5 Frequency of Treatment Frequency Of Treatment Once a Day Treatment Plan Physical Therapy Treatment Plan Bed Mobility Training,Transfer Training,Gait Training, Therapeutic Exercise,Balance Retraining,Discharge Planning, Hot or Cold Pack,Neuromuscular Re-ed,Coordination Retraining ,Manual Therapy Precautions Other Precautions droplet precautions. Recommendations To Nursing Amount of Assist Needed 2 Person Assist Discharge Recommendations PT Discharge Recommendations SNF Rehab Transportation Needs at Discharge Wheelchair/Cabulance
[2024-10-01] MEDS: POTASSIUM CHLORIDE 20 MEQ/15 ML UDC 40 MEQ TUBE (13:36)
--- NOTE | 2024-10-01 17:07 | PM.PN.1 ---
Subjective Subjective Date Patient Seen: 10/01/24 Time Patient Seen: 11:15 Interval history: Summary: Spoke with son yesterday and the patient. The plan is to place a Dobbhoff and see if he tolerates this and perform enteral tube feedings for several days to see if he has any general improvement of strength or clinical swallowing. He does not want a PEG tube, so if he does not improve he would then had towards hospice for level of care. Dobhoff placed 09/29 for a 2-3 day trial enteral feedings. S: The patient is watching TV, appears comfortable and he has no complaints, tolerating a feeding tube which was placed on September 29, the plan is 2-3 days of enteral feeding to see if his swallow improves. If his swallow does not improve, would likely go to hospice, he does not want a PEG. His son David is helping with most of these plans. Exam Vital Signs (past 8 hours): - 10/01/24 09:22 10/01/24 13:00 10/01/24 16:00 Temperature 97.1 F L 96.9 F L Pulse Rate 79 66 Respiratory Rate 20 21 Blood Pressure 145/72 H 91/56 L 83/51 L Pulse Oximetry 94 95 Oxygen Flow Rate 2 0 Fraction of Inspired Oxygen 21 SaO2/FiO2 Ratio 452 Oxygen Delivery Method Nasal Cannula Oxygen Flow Rate 0 Narrative Exam Narrative: NAD, alert and oriented. Chronically ill in appearance, flat affect. He has slow, soft and slurred speech. Dobbhoff is in place through his nare. Lungs are clear, normal rate and effort. Heart is regular, no murmur gallop or rub. Abdomen is soft, non distended. Extremities are free of edema. Objective Labs 09/30/24 06:00 10/01/24 05:30 Labs: Laboratory Results - last 24 hr 10/01/24 05:30 Sodium 137 Potassium 3.5 Chloride 108 H Carbon Dioxide 22 BUN 17 Creatinine 0.70 Estimated GFR > 60 BUN/Creatinine Ratio 24.3 H Glucose 141 H Calcium 8.6 Phosphorus 2.6 PFSH Medical History Constipation BPH (benign prostatic hyperplasia) Hypertension Parkinsons disease Social History household members: none Smoking Status: Unknown if ever smoked Assessment & Plan Assessment & Plan narrative: 1. Acute respiratory failure with hypoxemia. Present on admission and resolved. 2. Bacterial pneumonia on presumed viral pneumonia. Present on admission and improving. 3. Asthma exacerbation. Present on admission and improved. 2. Severe dysphagia, present on admission and active. 3. BPH, present on admission and stable. - continue flomax. 4. Hypertension, present on admission and stable. ?- stopped home atenolol as he is also on propranolol. Also added lisinopril. 5. Multisystem atrophy (progressive), present on admission and stable. ?- continue home sinemet. PLAN: -2-3 day trial of enteral feedings through a Dobbhoff. The patient does not want a PEG tube. If he fails to improve clinically in any way with bedside swallow evaluations he will likely go towards hospice after 2-3 days. -NPO except ice chips. -continue Abx (Zosyn). 09/27 start with 5 days 10/02 stop date. Was initially on Augmentin orally while in the hospital. Speech to not reassess him until Thursday, if he fails to improve substantially to the point that he could take an oral diet he we will likely pursue hospice because he does not want a PEG tube and can not have an NG-tube long-term. This plan was determined by his son, David. DVT prophylaxis hep SQ Code: DNR, surrogate is patient's son PROFEE Charge codes Subsequent inpatient/observation care: [id number]
--- NOTE | 2024-10-01 18:34 | PC.NURSE ---
Around 1634, this RN was notified that pt's BP was 83/57. Rechecked and it was 92/54. Notified MD Perez. Dr. Perez ordered an increase in the frequency of patient's flushes from Q6H to Q4H. BP now 133/72.
[2024-10-01] MEDS: TAMSULOSIN 0.4 MG CAPSULE PO (20:59)
[2024-10-01] MEDS: SODIUM CHLORIDE 0.9% FLUSH 10 ML IV (20:59)
--- NOTE | 2024-10-01 21:36 | DI.RAD.S_ITS ---
PROCEDURE: XR ABDOMEN 1V INDICATIONS: ngt placement TECHNIQUE: One view of the abdomen acquired. COMPARISON: [facility], CR, XR ABDOMEN 1V, 09/30/2024, 17:05. FINDINGS: Surgical changes and devices: The distal gastric tube can be seen coiled overlying the proximal and mid stomach, with the tip seen at the mid stomach. Bowel: Bowel gas pattern is normal. Soft tissues: No suspicious abdominal calcifications. Visualized solid organ contours appear normal in size. Bones: No suspicious bony lesions. IMPRESSION: The tip of the gastric tube is seen at the mid stomach, with a portion of the tube coiled along the fundus of the stomach. Dictated by: Lito Smith M.D. on 10/01/2024 at 20:59 Approved by: Lito Smith M.D. on 10/01/2024 at 20:59
[2024-10-02] VITALS (10 sets, daily range): BP systolic 66–117; BP diastolic 38–71; PULSE 55–75; RESP 19–20; TEMP 35.5–36.3; O2SAT 91–95
--- NOTE | 2024-10-02 03:48 | PC.NURSE ---
2000: Patient A & 0 X 4, tolerating TF at 50cc/hr, increased to 60cc/hr. Patient denies any nausea or SOB. CARDIAC SPECIALIST cough, lungs coarse with crackles and rhonchi at bases. At 2100 found patient with NG tube partially out and disconnected, patient states it was an accident. NG tube advanced, Dr Zepeda notified, X- ray obtained to check for placement, then TF resumed as ordered. At 2400 BP 89/46 with a map of 61, HR 55. Recheck after 10 minutes BP 92/54 with a map of 66, HR 65.
--- NOTE | 2024-10-02 07:31 | PC.NURSE ---
Patient tolerating TF, rate increased to goal rate of 65cc/hr. Pump cleared at end of shift and total for TF and flushes recorded in I & O, however pump wasn't cleared earlier so total is for more than one shift.
[2024-10-02] MEDS: FINASTERIDE 5 MG TABLET PO (09:12)
[2024-10-02] MEDS: lisinopriL 10 MG TABLET PO (09:12)
[2024-10-02] MEDS: MULTIVITAMIN 1 TABLET 1 TAB PO (09:12)
[2024-10-02] MEDS: polyethylene glycoL 3350 17 GM POWD.PACK PO (09:12)
[2024-10-02] MEDS: FUROSEMIDE 40 MG TABLET PO (09:12)
[2024-10-02] MEDS: CHOLECALCIFEROL (VITAMIN D3) 1,000 UNIT TABLET 1000 UNIT PO (09:12)
[2024-10-02] MEDS: CARBIDOPA-LEVODOPA 25/100 TABLET 3 EACH PO ×3 (09:13→20:41)
[2024-10-02] MEDS: HEPARIN 5,000 UNIT/ML VIAL 5000 UNIT SUBCUT ×2 (09:13→20:41)
[2024-10-02] MEDS: PROPRANOLOL 10 MG TABLET 20 MG PO (09:13)
[2024-10-02] MEDS: FLUTICASONE 120 SPRAY/16 GM SPRAY.SUSP NASAL (09:13)
[2024-10-02] MEDS: SODIUM CHLORIDE 0.9% FLUSH 10 ML IV ×2 (09:14→21:00)
--- NOTE | 2024-10-02 12:03 | PM.PN.1 ---
Subjective Subjective Date Patient Seen: 10/02/24 Time Patient Seen: 09:00 Interval history: Summary: Spoke with son yesterday and the patient. The plan is to place a Dobbhoff and see if he tolerates this and perform enteral tube feedings for several days to see if he has any general improvement of strength or clinical swallowing. He does not want a PEG tube, so if he does not improve he would then had towards hospice for level of care. Dobhoff placed 09/29 for a 2-3 day trial enteral feedings. S: The patient appears comfortable and he has no complaints, tolerating a feeding tube which was placed on September 29, the plan is 2-3 days of enteral feeding to see if his swallow improves. He has a flat affect but seems to understand his situation. If his swallow does not improve, would likely go to hospice, he does not want a PEG. His son David is helping with most of these plans and is arriving tonight from [place], as best I can understand with the patient's dysarthria. His tube became dislodged and was re-inserted with confirmatory xray in place last night. Exam Vital Signs (past 8 hours): - 10/02/24 08:00 10/02/24 09:12 Temperature 97.4 F L Pulse Rate 69 Respiratory Rate 20 Blood Pressure 109/69 109/69 Pulse Oximetry 91 Oxygen Flow Rate 0 Fraction of Inspired Oxygen 21 SaO2/FiO2 Ratio 452 Oxygen Delivery Method Nasal Cannula Oxygen Flow Rate 0 Narrative Exam Narrative: NAD, alert and oriented. Chronically ill in appearance, flat affect. He has slow, soft and slurred speech. NGT is in place through his nare. Lungs are clear, normal rate and effort. Heart is regular, no murmur gallop or rub. Abdomen is soft, non distended. Extremities are free of edema. Objective Imaging Abdominal xray 10/01/2024:: Radiologist's impression: The tip of the gastric tube is seen at the mid stomach, with a portion of the tube coiled along the fundus of the stomach. Labs 09/30/24 06:00 10/01/24 05:30 [facility] Medical History BPH (benign prostatic hyperplasia) Constipation Hypertension Parkinsons disease Social History household members: none Smoking Status: Unknown if ever smoked Assessment & Plan Assessment & Plan narrative: 1. Acute respiratory failure with hypoxemia. Present on admission and resolved. 2. Bacterial pneumonia on presumed viral pneumonia. Present on admission and improving. 3. Asthma exacerbation. Present on admission and improved. 2. Severe dysphagia, present on admission and active. See plan below. 3. BPH, present on admission and stable. - continue flomax. 4. Hypertension, present on admission and stable. ?- stopped home atenolol as he is also on propranolol. Also added lisinopril. 5. Multisystem atrophy (progressive), present on admission and stable. ?- continue home sinemet. PLAN: -2-3 day trial of enteral feedings through a Dobbhoff. The patient does not want a PEG tube. If he fails to improve clinically in any way with bedside swallow evaluations he will likely go towards hospice tomorrow. -NPO except ice chips. -continue Abx (Zosyn). 09/27 start with 5 days 10/02 stop date. Was initially on Augmentin orally while in the hospital. Speech to reassess him tomorrow, if he fails to improve substantially to the point that he could take an oral diet he we will likely pursue hospice because he does not want a PEG tube and can not have an NG-tube long-term. This plan was determined by his son, David. DVT prophylaxis hep SQ Code: DNR, surrogate is patient's son [facility] PROFEE Charge codes Subsequent inpatient/observation care: [id number]
--- NOTE | 2024-10-02 12:31 | PT.IPTN ---
Current Diagnoses Chronic obstructive pulmonary disease with (acute) exacerbation (09/22/24) Physical Therapy Treatment Note M2 PT-IP Current Condition Start: 09/25/24 10:44 Freq: NEEDED Status: Active Protocol: Document 09/25/24 10:45 MB (Rec: 09/25/24 11:51 MB [id number]) Physical Therapy Current Condition Current Condition Evaluation Date 09/25/24 Treatment Diagnosis ARF and PNA M3 PT-IP Subjective Start: 09/25/24 10:44 Freq: NEEDED Status: Active Protocol: Document 10/02/24 12:10 MB (Rec: 10/02/24 12:30 MB [id number]) Subjective Physical Therapy Visit Type Type Treatment Note Visit Start Time 12:10 Visit Stop Time 12:24 Number of MACHINERY CLEANER Visits 0 Physical Therapy Visit Comments Patient Comments Pt hook lying in bed, he tries to answer yes or no questions and is agreeable to PT. M4 PT-IP Mobility and Gait Start: 09/25/24 10:44 Freq: NEEDED Status: Active Protocol: Document 10/02/24 12:10 MB (Rec: 10/02/24 12:30 MB [id number]) PT-Bed Mobility Assessment Supine to Sit Supine to Sit Maximum Assistance,1 Person Assistance,Head of Bed Elevated,Bedrails Scooting Scooting to Edge of Bed Maximum Assistance PT-Transfer Assessment Sit to and From Stand Sit to and from Stand Maximum Assistance,2 Person Assistance,Use of Upper Extremities Equipment Transfer Assistive Device Gait Belt,Front Wheeled Walker Orthotic/Prosthetic Devices or Brace: No Transfers Transfer Destination Chair Transfer Technique Stand Step Pivot Transfer Ability Level of Assist Maximum Assistance,2 Person Assistance,Use of Upper Extremities Comments Mobility Comments Slow mobility today, unable to scoot hips to EOB and requires max A with use of pad . Sacral sitting position EOB with CGA and UE support for static sitting. 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 but it does not appear that he is cognitively impaired, may benefit from more formal cognitive assessment from OT Gross Range of Motion Upper Extremity ROM Assessment Bilaterally Impaired Lower Extremity ROM Assessment Bilaterally Impaired Strength Upper Extremity Strength Assessment Bilaterally Impaired Lower Extremity Strength Assessment Bilaterally Impaired Comments Strength Comments Limited range and strength all joints and pt does not tolerate formal assessment today given acute respiratory illness and great effort he puts into log rolling, getting to EOB and up to walker and chair today Coordination Assessment Gross Coordination Gross Coordination Impaired Sensation Assessment Comments Sensation Comments Not tested today Other Assessments Other Other Assessments Increased flexor tone in general, mild, and may be from current decreased mobility M6 PT-IP Treatment Start: 09/25/24 10:44 Freq: NEEDED Status: Active Protocol: Document 10/01/24 11:24 TS (Rec: 10/01/24 11:33 TS [id number]) Physical Therapy Treatment Education Education Provided Safety M7 PT-IP Assessment and Plan Start: 09/25/24 10:44 Freq: NEEDED Status: Active Protocol: Document 10/02/24 12:10 MB (Rec: 10/02/24 12:30 MB [id number]) PT Summary Assessment and Plan Potential Rehabilitation Potential Fair Summary Impairments ROM,Strength,Balance, Coordination,Bed Mobility, Transfers,Gait,Activity Tolerance Progress Towards Goals Slow Progress due to Medical Issues Assessment Summary Kin requires more assistance to move to EOB today and to get up to chair. He may require a total lift to get back to bed with nsg. He con't with unproductive and wet and weak cough. Goals Bed Mobility Goal Minimal Assistance Transfer Goal Minimal Assistance,Front Wheeled Walker Gait Goal Minimal Assistance,Front Wheel Walker Gait Distance 25 Days to Meet Goals 5 Frequency of Treatment Frequency Of Treatment Once a Day Treatment Plan Physical Therapy Treatment Plan Bed Mobility Training,Transfer Training,Gait Training, Therapeutic Exercise,Balance Retraining,Discharge Planning, Hot or Cold Pack,Neuromuscular Re-ed,Coordination Retraining ,Manual Therapy Precautions Other Precautions Droplet Recommendations To Nursing Amount of Assist Needed Mechanical Lift Discharge Recommendations Other Discharge Recommendations SNF vs plan to d/c with hospice per rounds Transportation Needs at Discharge Wheelchair/Cabulance,Stretcher /Ambulance
[2024-10-02] MEDS: SODIUM CHLORIDE 0.9% 500 ML 1000 ML IV (13:57)
--- NOTE | 2024-10-02 14:33 | PC.NURSE ---
At 1300, this RN was notified that Pt's BP was 66/41. This RN rechecked and it was 60/34 with a MAP of 41. Pt was asymptomatic. Notified MD Perez, and he ordered a one-time 500mL bolus of NS. After bolus was completed, pt BP was 91/56 with a MAP of 65.
--- NOTE | 2024-10-02 14:52 | CM.DPNOTE ---
DCP Cont According to Khalida at [facility], if patient transitions to comfort , [facility] can still admit patient using his LTC ABDIRIZAK benefit. CM team following clinical course closely. Bedside swallow eval anticipated Thursday. If patient fails this, likely transition to comfort management. Patient has declined peg placement thus far. DNR. JW
[2024-10-03] VITALS (7 sets, daily range): BP systolic 104–128; BP diastolic 59–74; PULSE 64–70; RESP 16–24; TEMP 35.6–36.1; O2SAT 91–95
[2024-10-03] MEDS: LOPERAMIDE 2 MG CAPSULE PO (03:38)
--- NOTE | 2024-10-03 07:50 | P.PN_ITS ---
Subjective Subjective Interval history: Summary: Spoke with son yesterday and the patient. The plan is to place a Dobbhoff and see if he tolerates this and perform enteral tube feedings for several days to see if he has any general improvement of strength or clinical swallowing. He does not want a PEG tube, so if he does not improve he would then had towards hospice for level of care. Dobhoff placed 09/29 for a 2-3 day trial enteral feedings. S: Exam Vital Signs (past 8 hours): - 10/03/24 00:00 10/03/24 04:00 Temperature 96.8 F L 96.9 F L Pulse Rate 66 69 Respiratory Rate 24 Blood Pressure 105/61 114/61 Pulse Oximetry 92 92 Oxygen Flow Rate 0 0 Fraction of Inspired Oxygen 21 SaO2/FiO2 Ratio 452 Oxygen Delivery Method Nasal Cannula Oxygen Flow Rate 0 Narrative Exam Narrative: NAD, alert and oriented. Soft and slurred speech. Dobhoff in place. Lungs are clear, normal rate and effort. Heart is regular, no murmur gallop or rub. Abdomen is soft, non distended. Extremities are free of edema. Objective Labs 09/30/24 06:00 10/01/24 05:30 REPLACED BY [facility] Medical History Constipation BPH (benign prostatic hyperplasia) Hypertension Parkinsons disease Social History household members: none Smoking Status: Unknown if ever smoked Assessment & Plan Assessment & Plan narrative: 1. Acute respiratory failure with hypoxemia. Present on admission and resolved. 2. Bacterial pneumonia on presumed viral pneumonia. Present on admission and improving. 3. Asthma exacerbation. Present on admission and improved. 2. Severe dysphagia, present on admission and active. See plan below. 3. BPH, present on admission and stable. 4. Hypertension, present on admission and stable. ?- stopped home atenolol as he is also on propranolol. Also added lisinopril. 5. Multisystem atrophy (progressive), present on admission and stable. ?- continue home sinemet. PLAN: -2-3 day trial of enteral feedings through a Dobbhoff. The patient does not want a PEG tube. If he fails to improve clinically in any way with bedside swallow evaluations he will likely go towards hospice tomorrow. -NPO except ice chips. -continue Abx (Zosyn). 09/27 start with 5 days 10/02 stop date. Was initially on Augmentin orally while in the hospital. He did a little bit better with a clinical bedside evaluation today. Speech therapy is going to repeat a modified barium on October 04. We will continue the Dobbhoff feedings until then. Time-Based Coding :: [TOTAL MINUTES] spent with patient and on the chart (including review of chart, obtaining history, exam, reviewing outside data, placing orders, documenting exam and treatment plan, and counseling patient) on [DATE].
[2024-10-03] MEDS: CARBIDOPA-LEVODOPA 25/100 TABLET 3 EACH PO ×3 (09:54→21:01)
[2024-10-03] MEDS: CHOLECALCIFEROL (VITAMIN D3) 1,000 UNIT TABLET 1000 UNIT PO (09:55)
[2024-10-03] MEDS: FLUTICASONE 120 SPRAY/16 GM SPRAY.SUSP NASAL (09:55)
[2024-10-03] MEDS: FINASTERIDE 5 MG TABLET PO (09:55)
[2024-10-03] MEDS: HEPARIN 5,000 UNIT/ML VIAL 5000 UNIT SUBCUT ×2 (09:55→21:01)
[2024-10-03] MEDS: lisinopriL 10 MG TABLET PO (09:55)
[2024-10-03] MEDS: MULTIVITAMIN 1 TABLET 1 TAB PO (09:56)
[2024-10-03] MEDS: PROPRANOLOL 10 MG TABLET 20 MG PO (09:56)
[2024-10-03] MEDS: SODIUM CHLORIDE 0.9% FLUSH 10 ML IV ×2 (09:56→21:02)
--- NOTE | 2024-10-03 10:42 | ST.IPDYTX ---
Visit Care Team Role Provider Type Amilcar Gilbert MD Primary Care Provider Non-Staff Specialty: Internal Medicine Address: [address], [place], [address] Email: Han Coy DO Emergency Provider Physician Referring Provider Specialty: Emergency Medicine Address: [address] [place] [address], [id number] Email: [email or web address] Pasquale Acosta MD Admit Provider Physician Attending Provider Specialty: Internal Medicine Address: [address] [place] [address], [address] Email: [email or web address] [email or web address] PERFORMANCE CONSULTANT Dysphagia Treatment HUMAN PERFORMANCE CONSULTANT Dysphagia Treatment Start: 09/26/24 13:16 Freq: Status: Active Protocol: Document 10/03/24 10:27 SS (Rec: 10/03/24 10:42 SS [id number]) Dysphagia Treatment Session Time Visit Start Time 09:45 Visit Stop Time 10:10 Total Visit Minutes 25 Visit Information Visit Number 5 Setting Assessment Location Acute Care Visit Type Note Type Treatment Note Next Note Type Next Note Type Treatment Note Patient Information Identification Type Name,Date of Subjective Observations Chart reviewed and RN consulted. Pt continues to tolerate NG tube. Pt sitting reclined in bed upon HUMAN PERFORMANCE CONSULTANT arrival. Assisted pt with upright positioning for PO trials. No wet cough at baseline with SpO2 at 96-98% at rest, though wheezing noted at baseline. Increased intelligibility today with pt appearing more alert. Pt reported his mouth feels dry. HUMAN PERFORMANCE CONSULTANT assisted with oral care and use of suction. Discussed oral care plan with nursing to minimize colonization of oral pathogens that can increase pt's risk of developing aspiration pneumonia if aspirated and increase oral comfort. Treatment Liquids Trialed Ice chips,Thin (IDDSI 0) Administration Type Tea Spoon Oral Strategies Upright at 90 degrees Pharyngeal Strategies Sitting Upright (90 deg) Treatment Activities HUMAN PERFORMANCE CONSULTANT completed therapeutic trials of ice chips and water via tsp with dynamic assessment of s/sx of dysphagia. Communicated with MD and RN re: POC and recommendations. The IDDSI Framework Protocol: IDDSI.1 Assessment Patient Response to Treatment Fair Rehab Potential Fair Assessment of Improvement During therapeutic trials of ice chips and water via tsp, pt demonstrated good oral acceptance and containment. AP transport and manipulation appeared to be within normal limits. Pharyngeal phase cannot be assessed objectively at bedside though subjectively appeared effortful. Pt did not demonstrate over s/sx of aspiration with ice chips, though silent aspiration cannot be ruled out without an instrumental assessment. No change in SpO2 with ice chip trials. Given water via tsp, pt demonstrated overt s/sx of aspiration in 2/9 trials re: coughing. Cough strength initially very weak, though HUMAN PERFORMANCE CONSULTANT was able to elicit strong cough given max cueing with pt stating he felt that his airway was clear afterward, though this may be affected by change in sensation, both given advanced PD, and NG tube in place. SpO2 went down to 94% immediately following swallows, though quickly returned to 96-98%. Reduced laryngeal elevation and anterior propulsion via palpation. No change to vocal quality following PO trials. No further trials completed given history of silent aspiration and current immunocompromised status. Recommendations Recommendations Continue Current Diet Diet Order NPO Medication Recommendations Not Recommended by Mouth Comments Ice chip protocol (see below for precautions) Aspiration Precautions Additional Precautions For ice chip protocol: fully upright, oral care before, 1:1 supervision Treatment Plan Placement Recommendation after Discharge Halfway Facility,Assisted Care Facility,Palliative Care Appropriate for Continued Therapy Yes Therapy Recommendations Given modest clinical improvement in swallowing function since MBSS on 09/27, recommend a repeat MBS study in order to objectively assess swallowing function and determine whether pt may be appropriate for advancement to PO diet or continuation of NPO status with further goals pf care discussion with MD. MBS order in place with HUMAN PERFORMANCE CONSULTANT to schedule MBS. Continue recommending ice chip protocol to promote oral hygiene and increase comfort given current NPO status as well as BID oral care. Discussed pt's current swallowing function and recommendations with MD and RN who verbalized understanding.
--- NOTE | 2024-10-03 11:38 | DIET.PN1 ---
Dietary Progress Note Assessment: Spoke to RN. Reports pt with loose stools yesterday and early this morning. Stool softener d/c today. Will monitor BMs. Enteral nutrition is at goal rate. Free water flush frequency increased over weekend d/t change in IV fluids. Water flushes + feeds now meet 2340 mL fluids/day. Per ST note, pt with slight improvement with swallow. MBSS to be repeated. Plan of care ongoing. Will f/u tomorrow. Ht: 177.8 cm Wt: 83.5 kg BMI: 27.7 Last BM: 10/03/24 (10/03/24 06:00) MNA: 12 Solo Score: 12 Diet: 09/26/24 19:17 NPO Diet Diet Modifications: crush pills in applesauce- chin tuck NPO Type: NPO except for Meds 09/29/24 Lunch Tube Feeding Diet Diet Modifications: TF Supplement type: Jevity 1.2 angela TF mode of delivery: Continuous Starting flow rate mL/hr: 10 Flow rate goal mL/hr: 65 Titration Schedule to reach Goal Rate: 10 mL Q8H as tolerated Max total daily volume in mL: 1,560 Free fluid: 180 Free Water Frequency: Q4H Comment: give extra 180ml now x 1 Nutrition Type of Feeding Tube NG/OG 10/03/24 10:41 Labs: RBC 4.67 X10^6/uL (4.5-5.9) 09/30/24 06:00 Hgb 13.4 g/dL (13.5-17.5) L 09/30/24 06:00 Hct 39.1 % (41-53) L 09/30/24 06:00 Creatinine 0.70 mg/dL (0.66-1.25) 10/01/24 05:30 Lactate 1.4 mmol/L (0.7-2.1) 09/22/24 18:51 NT-Pro-B Natriuret Pep 288 pg/mL (<125) H 09/22/24 18:51 Electronically Signed by: Syeda Pedro 10/03/24 11:38 Clinical Dietitian [address] [address]
--- NOTE | 2024-10-03 12:55 | CM.DPC ---
DCP Cont: Per MD, pt to work with ST again today to determine if pt's swallow has improved and has been getting artificial nutrition vs no improvement and plan of Comfort Focused treatment. Per ST, pt has slight improvement with swallow and recommending repeat MBS to determine if pt safe to swallow as pt currently declining permanent feeding tube placement. MBS scheduled for tomorrow 10/04/24. SW updated [facility] and awaiting SNF for rehab vs LTC comfort care. SW called [facility] and they have not received a referral on patient yet and SW explained the situation and faxed new referral to review in case Hospice needed at d/c. They have some openings middle to end of this week at this time. Plan: SW to follow closely after MBS tomorrow to determine [facility] for rehab vs comfort care/Hospice LTC. RODRIGUEZ Arias
--- NOTE | 2024-10-03 14:25 | OT.IP.TRT ---
Current Diagnoses Chronic obstructive pulmonary disease with (acute) exacerbation (09/22/24) Occupational Therapy Treatment Note M2 OT-IP Current Condition Start: 09/26/24 13:05 Freq: Status: Active Protocol: Document 09/26/24 13:05 CGR (Rec: 09/26/24 13:25 CGR [id number]) Occupational Therapy Current Condition Current Condition Evaluation Date 09/26/24 Treatment Diagnosis acute respiratory failure, PNA Diagnosis Onset Date 09/22/24 Post Operative Precautions Other Precautions droplet precautions. M3 OT- IP Subjective and Pain Start: 09/26/24 13:05 Freq: Status: Active Protocol: Document 10/03/24 14:26 CGR (Rec: 10/03/24 14:40 CGR [id number]) OT- Subjective Occupational Therapy Visit Type Type Treatment Note Visit Start Time 14:00 Visit Stop Time 14:25 Notes Co-treat with P.T. M4 OT- IP ADL's Start: 09/26/24 13:05 Freq: Status: Active Protocol: Document 10/03/24 14:26 CGR (Rec: 10/03/24 14:40 CGR [id number]) OT [id number] Comments OT Self-Feeding Comments Pt currently on tube feeding and NPO. OT ADL-Grooming General Evaluation Grooming Ability Standby Assistance Areas Needing Assistance Retrieving/Set-up of Grooming Items,Face Washing Comments OT Grooming Comments Pt performed sitting in chair. OT ADL-Oral Care Comments Oral Care Comments not performed, pt states he has no teeth. OT ADL-Dressing Comments OT Dressing Comments not performed OT ADL-Toileting Comments OT Toileting Comments not performed, pt in brief. OT ADL-Bathing Comments OT Bathing Comments not performed M5 OT- IP IADL's Start: 09/26/24 13:05 Freq: Status: Active Protocol: Document 09/26/24 13:05 CGR (Rec: 09/26/24 13:25 CGR [id number]) OT-Instrumental Activities of Daily Living Deficits IADL Deficits Identified Deficits Home Safety Awareness Awareness of Need for Assistance at Home Good Awareness Ability to Problem Solve Emergency Able to Problem Solve Situations Medication Management Medication Management Caregiver Administers Money Management Money Management Caregiver Provides Assistance Meal Preparation Meal Preparation Caregiver Provides Assist Obstetrics Tech Obstetrics Tech Caregiver Provides Assist Driving Driving Comments Pt does not drive M6 OT- IP Functional Cognition Start: 09/26/24 13:05 Freq: Status: Active Protocol: Document 09/30/24 15:05 CCC (Rec: 09/30/24 15:12 CCC [id number]) Cognitive Factors Limiting Selfcare Function Cognitive Comments Cognitive Assessment Comments Pt having difficulty to intiate his movements, weight shift , and needing increased time and assist for all needs. M7 OT- IP Mobility and Balance Start: 09/26/24 13:05 Freq: Status: Active Protocol: Document 10/03/24 14:26 CGR (Rec: 10/03/24 14:40 CGR [id number]) OT- Bed Mobility Assessment Supine to Sit Supine to Sit Assist Moderate Assistance,1 Person Assistance,Head of Bed Elevated,Bedrails Scooting Scooting to Edge of Bed Moderate Assistance,1 Person Assistance,Head of Bed Elevated,Bedrails OT-Transfer Assessment Sit to and From Stand Sit to and from Stand Moderate Assistance,1 Person Assistance,2 Person Assistance Transfers Transfer Ability Moderate Assistance,1 Person Assistance,2 Person Assistance Technique Transfer Destination Bed,Chair Transfer Technique Stand Step Pivot Devices Transfer Assistive Devices Gait Belt,Front Wheeled Walker Comments Mobility Comments Pt stood from bed and transfered to chair then ambulated forward then backwards x2 ~ 3 feet each time. Second person assist for safety. OT- Balance Assessment Sitting Balance and Reactions Static Sitting Balance Ability Fair Dynamic Sitting Balance Ability Fair Standing Balance and Reactions Static Standing Balance Ability Poor Dynamic Standing Balance Ability Poor M8 OT- IP Objective Assessments Start: 09/26/24 13:05 Freq: Status: Active Protocol: Document 09/26/24 13:05 CGR (Rec: 09/26/24 13:25 CGR [id number]) OT Gross Range of Motion Upper Extremity Range of Motion Assessment Within Functional Limits OT Strength Upper Extremity Strength Assessment Within Functional Limits Comments Strength Comments 4+/5 OT- Coordination Assessment Upper Extremity Finger to Nose Test Within Functional Limits Finger Tapping Test Within Functional Limits Comments Coordination Comments coordination is slow OT-Muscle Tone Assessment Muscle Tone WNL Yes OT Sensation Assessment Edema Edema Absent M9 OT- IP Assessment and Plan Start: 09/26/24 13:05 Freq: Status: Active Protocol: Document 10/03/24 14:26 CGR (Rec: 10/03/24 14:40 CGR [id number]) OT Summary Assessment and Plan Potential Rehabilitation Potential Good Analytic Complexity at Evaluation Moderate Summary OT Impairments Balance,Functional Mobility, Grooming,Dressing,Toileting, Bathing,Toilet Transfers, Shower Transfers,Activity Tolerance Progress Towards Goals Slow Progress due to Pain,Slow Progress due to Medical Issues,Slow Progress due to Activity Tolerance Assessment Summary Pt did well today with mod x 1 with second person present for safety. Pt then ambulated forward and backwards x2 and then sat in chair for limited ADLs. Pt with slight dyspnea at end of session and agreeable to ADLs in chair only. Pt left sitting up in chair, call button within reach and all needs a time met . Goals Grooming Goal Independent Dressing Goal Independent Toileting Goal Minimal Assistance Bathing Goal Minimal Assistance,Moderate Assistance Toilet Transfer Goal Minimal Assistance Shower Transfer Goal Minimal Assistance Days to Meet Goals 30 Frequency of Treatment Other frequency 5x a week Treatment Plan OT Treatment Plan ADL Training,Functional Mobility,Therapeutic Exercises ,Patient/Family Education, Discharge Planning Other Treatment Recommendations and Next Transfer to [facility] with MODA X 2 Treatment Focus with FWW. Discharge Recommendations OT Discharge Recommendations SNF Rehab Transportation Needs at Discharge Wheelchair/Cabulance
--- NOTE | 2024-10-03 15:13 | PT.IPTN ---
Current Diagnoses Chronic obstructive pulmonary disease with (acute) exacerbation (09/22/24) Physical Therapy Treatment Note M2 PT-IP Current Condition Start: 09/25/24 10:44 Freq: NEEDED Status: Active Protocol: Document 09/25/24 10:45 MB (Rec: 09/25/24 11:51 MB [id number]) Physical Therapy Current Condition Current Condition Evaluation Date 09/25/24 Treatment Diagnosis ARF and PNA M3 PT-IP Subjective Start: 09/25/24 10:44 Freq: NEEDED Status: Active Protocol: Document 10/03/24 14:05 MB (Rec: 10/03/24 15:12 MB [id number]) Subjective Physical Therapy Visit Type Type Treatment Note Visit Start Time 14:05 Visit Stop Time 14:22 Notes PT speaks with BLASTING HELPER this a.m. who reports that pt did a little better and will have another MBS. Number of GARMENT CUTTER Visits 0 Physical Therapy Visit Comments Patient Comments Pt is agreeable to PT. M4 PT-IP Mobility and Gait Start: 09/25/24 10:44 Freq: NEEDED Status: Active Protocol: Document 10/03/24 14:05 MB (Rec: 10/03/24 15:12 MB [id number]) PT-Bed Mobility Assessment Supine to Sit Supine to Sit Moderate Assistance,Head of Bed Elevated,Bedrails Scooting Scooting to Edge of Bed Moderate Assistance PT-Transfer Assessment Sit to and From Stand Sit to and from Stand Moderate Assistance,1 Person Assistance,Use of Upper Extremities Equipment Transfer Assistive Device Gait Belt,Front Wheeled Walker Orthotic/Prosthetic Devices or Brace: No Transfers Transfer Destination Chair Transfer Technique Stepping Transfer Ability Level of Assist Moderate Assistance,1 Person Assistance,Use of Upper Extremities Comments Mobility Comments Slow mobility and pt requires encouragement. Pt requires assistance x2 with pad to help scooting but he does more of the work than he did yesterday . Gait Assessment Gait Gait Assistance Required: Moderate Assistance,1 Person Assist Distance (Feet) 3 Assistive Devices Assistive Device Gait Belt,Front Wheeled Walker Orthotic/Prosthetic Devices or Brace: No Gait Deviations General Gait Pattern Decreased Stride Length, Decreased Feet Clearance,Step- to Gait Factors Limiting Gait Function Factors Limiting Gait Function Decreased Activity Tolerance, Decreased Strength, Incoordination,Limited Range of Motion,Poor Balance Comments Gait Comments 2nd person nearby to move chair if needed and to provide support if needed and otherwise, pt requires mod A of 1 for stepping 3' forward and back x2 with RW today and cues to step big PT-Balance Assessment Sitting Balance and Reactions Static Sitting Balance Ability Fair Dynamic Sitting Balance Ability Fair Standing Balance and Reactions Static Standing Balance Ability Fair Dynamic Standing Balance Ability Poor Device Used RW M5 PT-IP Objective Assessments Start: 09/25/24 10:44 Freq: NEEDED Status: Active Protocol: Document 09/25/24 10:45 MB (Rec: 09/25/24 11:51 MB [id number]) Orientation Orientation/Cognition Level of Alertness Alert Orientation Name,Age,Birthday,Year,Place Safety Awareness Decreased Safety Awareness Memory Description No Deficits Noted Comments Pt has communication barriers from [facility] but it does not appear that he is cognitively impaired, may benefit from more formal cognitive assessment from OT Gross Range of Motion Upper Extremity ROM Assessment Bilaterally Impaired Lower Extremity ROM Assessment Bilaterally Impaired Strength Upper Extremity Strength Assessment Bilaterally Impaired Lower Extremity Strength Assessment Bilaterally Impaired Comments Strength Comments Limited range and strength all joints and pt does not tolerate formal assessment today given acute respiratory illness and great effort he puts into log rolling, getting to EOB and up to walker and chair today Coordination Assessment Gross Coordination Gross Coordination Impaired Sensation Assessment Comments Sensation Comments Not tested today Other Assessments Other Other Assessments Increased flexor tone in general, mild, and may be from current decreased mobility M6 PT-IP Treatment Start: 09/25/24 10:44 Freq: NEEDED Status: Active Protocol: Document 10/03/24 14:05 MB (Rec: 10/03/24 15:12 MB [id number]) Physical Therapy Treatment Education Education Provided Safety M7 PT-IP Assessment and Plan Start: 09/25/24 10:44 Freq: NEEDED Status: Active Protocol: Document 10/03/24 14:05 MB (Rec: 10/03/24 15:12 MB [id number]) PT Summary Assessment and Plan Potential Rehabilitation Potential Fair Summary Impairments ROM,Strength,Balance, Coordination,Bed Mobility, Transfers,Gait,Activity Tolerance Progress Towards Goals Slow Progress due to Medical Issues Assessment Summary Kin sosa trains more today and requires less assistance today. He does present with B LE weakness and core weakness and requires assistance with moving the walker, especially backwards. He stands with CGA x2 and use of RW for several seconds. Goals Bed Mobility Goal Minimal Assistance Transfer Goal Minimal Assistance,Front Wheeled Walker Gait Goal Minimal Assistance,Front Wheel Walker Gait Distance 25 Days to Meet Goals 5 Frequency of Treatment Frequency Of Treatment Once a Day Treatment Plan Physical Therapy Treatment Plan Bed Mobility Training,Transfer Training,Gait Training, Therapeutic Exercise,Balance Retraining,Discharge Planning, Hot or Cold Pack,Neuromuscular Re-ed,Coordination Retraining ,Manual Therapy Precautions Other Precautions Droplet Recommendations To Nursing Amount of Assist Needed 2 Person Assist Discharge Recommendations PT Discharge Recommendations SNF Rehab Transportation Needs at Discharge Wheelchair/Cabulance,Stretcher /Ambulance
[2024-10-04] VITALS (7 sets, daily range): BP systolic 93–141; BP diastolic 54–72; PULSE 64–68; RESP 17–24; TEMP 35.9–36.6; O2SAT 92–96
--- NOTE | 2024-10-04 07:45 | PM.PN.1 ---
Subjective Subjective Interval history: Summary: Spoke with son yesterday and the patient. The plan is to place a Dobbhoff and see if he tolerates this and perform enteral tube feedings for several days to see if he has any general improvement of strength or clinical swallowing. He does not want a PEG tube, so if he does not improve he would then had towards hospice for level of care. Dobhoff placed 09/29 for a 2-3 day trial enteral feedings. 10/04 MBS: Little or no improvement in swallow function with high risk aspiration demonstrated. Recommendations for NPO status. I updated son David. He will talk to his dad dionne about hospice. Indications have been that the patient would not want a PEG in the past. I shared this information with the patient as well, he did not comment on his preferences when we talked. S: Less of a cough, no dyspnea or pain. Dobbhoff is in place. I explained that this is not a permanent measured but really can only be in for a short time. Exam Vital Signs (past 8 hours): - 10/04/24 00:00 10/04/24 04:00 Temperature 96.9 F L 97.6 F Pulse Rate 65 67 Respiratory Rate 24 Blood Pressure 112/63 97/56 L Pulse Oximetry 92 93 Oxygen Flow Rate 0 0 Fraction of Inspired Oxygen 21 SaO2/FiO2 Ratio 452 Oxygen Delivery Method Nasal Cannula Oxygen Flow Rate 0 Narrative Exam Narrative: NAD, alert and oriented. Chronically ill, flat affect. NG tube in place. Lungs are clear, normal rate and effort. Heart is regular, no murmur gallop or rub. Abdomen is soft, non distended. Extremities are free of edema. Objective Labs 09/30/24 06:00 10/01/24 05:30 [facility] Medical History Constipation BPH (benign prostatic hyperplasia) Hypertension Parkinsons disease Social History household members: none Smoking Status: Unknown if ever smoked Assessment & Plan Assessment & Plan narrative: 1. Acute respiratory failure with hypoxemia. Present on admission and resolved. 2. Bacterial pneumonia on presumed viral pneumonia. Present on admission and improving. 3. Asthma exacerbation. Present on admission and improved. 2. Severe dysphagia, present on admission and active. See plan below. 3. BPH, present on admission and stable. 4. Hypertension, present on admission and stable. ?- stopped home atenolol as he is also on propranolol. Also added lisinopril. 5. Multisystem atrophy (progressive), present on admission and stable. ?- continue home sinemet. PLAN: Son will talk with him tonight about preferences of a PEG versus hospice care. The patient has had no discernible improvement in swallow after having enteral feeds for 4 days. Time-Based Coding :: [TOTAL MINUTES] spent with patient and on the chart (including review of chart, obtaining history, exam, reviewing outside data, placing orders, documenting exam and treatment plan, and counseling patient) on [DATE].
[2024-10-04] MEDS: FUROSEMIDE 40 MG TABLET PO (09:15)
[2024-10-04] MEDS: lisinopriL 10 MG TABLET PO (09:15)
[2024-10-04] MEDS: CHOLECALCIFEROL (VITAMIN D3) 1,000 UNIT TABLET 1000 UNIT PO (09:15)
[2024-10-04] MEDS: FINASTERIDE 5 MG TABLET PO (09:15)
[2024-10-04] MEDS: MULTIVITAMIN 1 TABLET 1 TAB PO (09:15)
[2024-10-04] MEDS: CARBIDOPA-LEVODOPA 25/100 TABLET 3 EACH PO ×3 (09:15→20:39)
[2024-10-04] MEDS: SODIUM CHLORIDE 0.9% FLUSH 10 ML IV ×2 (09:16→20:40)
[2024-10-04] MEDS: HEPARIN 5,000 UNIT/ML VIAL 5000 UNIT SUBCUT ×2 (09:16→20:39)
[2024-10-04] MEDS: FLUTICASONE 120 SPRAY/16 GM SPRAY.SUSP NASAL (09:17)
--- NOTE | 2024-10-04 11:40 | PT.IPTN ---
Current Diagnoses Chronic obstructive pulmonary disease with (acute) exacerbation (09/22/24) Physical Therapy Treatment Note M2 PT-IP Current Condition Start: 09/25/24 10:44 Freq: NEEDED Status: Active Protocol: Document 09/25/24 10:45 MB (Rec: 09/25/24 11:51 MB [id number]) Physical Therapy Current Condition Current Condition Evaluation Date 09/25/24 Treatment Diagnosis ARF and PNA M3 PT-IP Subjective Start: 09/25/24 10:44 Freq: NEEDED Status: Active Protocol: Document 10/04/24 12:07 TS (Rec: 10/04/24 12:21 TS [id number]) Subjective Physical Therapy Visit Type Type Treatment Note Visit Start Time 11:40 Visit Stop Time 12:04 Number of DIRECTOR OF DANCE Visits 1 Physical Therapy Visit Comments Patient Comments Pt found resting in bed, he is agreeable to PT. M4 PT-IP Mobility and Gait Start: 09/25/24 10:44 Freq: NEEDED Status: Active Protocol: Document 10/04/24 12:07 TS (Rec: 10/04/24 12:21 TS [id number]) PT-Bed Mobility Assessment Supine to Sit Supine to Sit Maximum Assistance,1 Person Assistance,Head of Bed Elevated,Bedrails Scooting Scooting to Edge of Bed Maximum Assistance PT-Transfer Assessment Sit to and From Stand Sit to and from Stand Maximum Assistance,1 Person Assistance Equipment Transfer Assistive Device Gait Belt,Front Wheeled Walker Orthotic/Prosthetic Devices or Brace: No Transfers Transfer Destination Chair Transfer Technique Stepping Transfer Ability Level of Assist Maximum Assistance,1 Person Assistance Comments Mobility Comments Supine to sit MaxA for uprighting trunk. STS with FWW x2 MaxA. Pt preforms transfer to chair MaxA x1 with FWW, pt has poor balance. Pt was left in the chair, all needs met. Gait Assessment Gait Gait Assistance Required: Maximum Assistance,1 Person Assist Distance (Feet) 3 Able to Maintain Weight Bearing Status Yes During Gait Assistive Devices Assistive Device Gait Belt,Front Wheeled Walker Orthotic/Prosthetic Devices or Brace: No Gait Deviations General Gait Pattern Decreased Stride Length, Decreased Feet Clearance,Step- to Gait Factors Limiting Gait Function Factors Limiting Gait Function Decreased Activity Tolerance, Decreased Strength, Incoordination,Limited Range of Motion,Poor Balance PT-Balance Assessment Sitting Balance and Reactions Static Sitting Balance Ability Fair Dynamic Sitting Balance Ability Fair Standing Balance and Reactions Static Standing Balance Ability Fair Dynamic Standing Balance Ability Fair Device Used FWW M5 PT-IP Objective Assessments Start: 09/25/24 10:44 Freq: NEEDED Status: Active Protocol: Document 09/25/24 10:45 MB (Rec: 09/25/24 11:51 MB [id number]) Orientation Orientation/Cognition Level of Alertness Alert Orientation Name,Age,Birthday,Year,Place Safety Awareness Decreased Safety Awareness Memory Description No Deficits Noted Comments Pt has communication barriers from [facility] but it does not appear that he is cognitively impaired, may benefit from more formal cognitive assessment from OT Gross Range of Motion Upper Extremity ROM Assessment Bilaterally Impaired Lower Extremity ROM Assessment Bilaterally Impaired Strength Upper Extremity Strength Assessment Bilaterally Impaired Lower Extremity Strength Assessment Bilaterally Impaired Comments Strength Comments Limited range and strength all joints and pt does not tolerate formal assessment today given acute respiratory illness and great effort he puts into log rolling, getting to EOB and up to walker and chair today Coordination Assessment Gross Coordination Gross Coordination Impaired Sensation Assessment Comments Sensation Comments Not tested today Other Assessments Other Other Assessments Increased flexor tone in general, mild, and may be from current decreased mobility M6 PT-IP Treatment Start: 09/25/24 10:44 Freq: NEEDED Status: Active Protocol: Document 10/04/24 12:07 TS (Rec: 10/04/24 12:21 TS [id number]) Physical Therapy Treatment Education Education Provided Safety M7 PT-IP Assessment and Plan Start: 09/25/24 10:44 Freq: NEEDED Status: Active Protocol: Document 10/04/24 12:07 TS (Rec: 10/04/24 12:21 TS [id number]) PT Summary Assessment and Plan Potential Rehabilitation Potential Fair Summary Impairments ROM,Strength,Balance, Coordination,Bed Mobility, Transfers,Gait,Activity Tolerance Progress Towards Goals Slow Progress due to Medical Issues Assessment Summary Kin continues to make slow progress with his mobility. HE requries MaxA for bed mobility and MaxA for transfers with use of FWW. He does follow instructions well. His movement is slow and requries extra time to complete tasks. PT is recommending SNF. Goals Bed Mobility Goal Minimal Assistance Transfer Goal Minimal Assistance,Front Wheeled Walker Gait Goal Minimal Assistance,Front Wheel Walker Gait Distance 25 Days to Meet Goals 5 Frequency of Treatment Frequency Of Treatment Once a Day Treatment Plan Physical Therapy Treatment Plan Bed Mobility Training,Transfer Training,Gait Training, Therapeutic Exercise,Balance Retraining,Discharge Planning, Hot or Cold Pack,Neuromuscular Re-ed,Coordination Retraining ,Manual Therapy Precautions Other Precautions Droplet Recommendations To Nursing Amount of Assist Needed 1 Person Assist Discharge Recommendations PT Discharge Recommendations SNF Rehab Transportation Needs at Discharge Wheelchair/Cabulance,Stretcher /Ambulance
--- NOTE | 2024-10-04 13:35 | OT.IP.TRT ---
Current Diagnoses Chronic obstructive pulmonary disease with (acute) exacerbation (09/22/24) Occupational Therapy Treatment Note M2 OT-IP Current Condition Start: 09/26/24 13:05 Freq: Status: Active Protocol: Document 09/26/24 13:05 CGR (Rec: 09/26/24 13:25 CGR [id number]) Occupational Therapy Current Condition Current Condition Evaluation Date 09/26/24 Treatment Diagnosis acute respiratory failure, PNA Diagnosis Onset Date 09/22/24 Post Operative Precautions Other Precautions droplet precautions. M3 OT- IP Subjective and Pain Start: 09/26/24 13:05 Freq: Status: Active Protocol: Document 10/04/24 13:30 CCC (Rec: 10/04/24 13:39 CCC [id number]) OT- Subjective Occupational Therapy Visit Type Type Treatment Note Visit Start Time 12:48 Visit Stop Time 12:56 Occupational Therapy Visit Comments Patient Comments [place] going [place] [facility] and able to assist nursing with transfer. M4 OT- IP ADL's Start: 09/26/24 13:05 Freq: Status: Active Protocol: Document 10/03/24 14:26 CGR (Rec: 10/03/24 14:40 CGR [id number]) OT [id number] Comments OT Self-Feeding Comments Pt currently on tube feeding and NPO. OT ADL-Grooming General Evaluation Grooming Ability Standby Assistance Areas Needing Assistance Retrieving/Set-up of Grooming Items,Face Washing Comments OT Grooming Comments Pt performed sitting in chair. OT ADL-Oral Care Comments Oral Care Comments not performed, pt states he has no teeth. OT ADL-Dressing Comments OT Dressing Comments not performed OT ADL-Toileting Comments OT Toileting Comments not performed, pt in brief. OT ADL-Bathing Comments OT Bathing Comments not performed M5 OT- IP IADL's Start: 09/26/24 13:05 Freq: Status: Active Protocol: Document 09/26/24 13:05 CGR (Rec: 09/26/24 13:25 CGR [id number]) OT-Instrumental Activities of Daily Living Deficits IADL Deficits Identified Deficits Home Safety Awareness Awareness of Need for Assistance at Home Good Awareness Ability to Problem Solve Emergency Able to Problem Solve Situations Medication Management Medication Management Caregiver Administers Money Management Money Management Caregiver Provides Assistance Meal Preparation Meal Preparation Caregiver Provides Assist Cd Reactor Operator Cd Reactor Operator Caregiver Provides Assist Driving Driving Comments Pt does not drive M6 OT- IP Functional Cognition Start: 12/02/24 13:05 Freq: Status: Active Protocol: Document 09/30/24 15:05 [facility] (Rec: 09/30/24 15:12 [facility] [id number]) Cognitive Factors Limiting Selfcare Function Cognitive Comments Cognitive Assessment Comments Pt having difficulty to initiate his movements, weight shift , and needing increased time and assist for all needs. M7 OT- IP Mobility and Balance Start: 09/26/24 13:05 Freq: Status: Active Protocol: Document 10/04/24 13:30 [facility] (Rec: 10/04/24 13:39 [facility] [id number]) OT-Transfer Assessment Sit to and From Stand Sit to and from Stand Moderate Assistance,1 Person Assistance,2 Person Assistance Transfers Transfer Ability Moderate Assistance,1 Person Assistance,2 Person Assistance Technique Transfer Destination Chair Transfer Technique Stand Step Pivot Devices Transfer Assistive Devices Gait Belt,Front Wheeled Walker Comments Mobility Comments Pt able to stand with MODA X 2 and transfer to the MBS chair with assist for balance and to guide the FWW. Pt weight shifting much better today. On the way back to the recliner chair MODA X 2 with FWW OT- Balance Assessment Sitting Balance and Reactions Static Sitting Balance Ability Fair Dynamic Sitting Balance Ability Fair Standing Balance and Reactions Static Standing Balance Ability Poor Dynamic Standing Balance Ability Poor M8 OT- IP Objective Assessments Start: 09/26/24 13:05 Freq: Status: Active Protocol: Document 09/26/24 13:05 CGR (Rec: 09/26/24 13:25 CGR [id number]) OT Gross Range of Motion Upper Extremity Range of Motion Assessment Within Functional Limits OT Strength Upper Extremity Strength Assessment Within Functional Limits Comments Strength Comments 4+/5 OT- Coordination Assessment Upper Extremity Finger to Nose Test Within Functional Limits Finger Tapping Test Within Functional Limits Comments Coordination Comments coordination is slow OT-Muscle Tone Assessment Muscle Tone WNL Yes OT Sensation Assessment Edema Edema Absent M9 OT- IP Assessment and Plan Start: 09/26/24 13:05 Freq: Status: Active Protocol: Document 10/04/24 13:30 [facility] (Rec: 10/04/24 13:39 [facility] [id number]) OT Summary Assessment and Plan Potential Rehabilitation Potential Good Analytic Complexity at Evaluation Moderate Summary OT Impairments Balance,Functional Mobility, Grooming,Dressing,Toileting, Bathing,Toilet Transfers, Shower Transfers,Activity Tolerance Progress Towards Goals Slow Progress due to Medical Issues,Slow Progress due to Activity Tolerance Assessment Summary Pt needing MODA X1-2 for transfer today. Pt going to have MBS today. Goals Grooming Goal Independent Dressing Goal Independent Toileting Goal Minimal Assistance Bathing Goal Minimal Assistance,Moderate Assistance Toilet Transfer Goal Minimal Assistance Shower Transfer Goal Minimal Assistance Days to Meet Goals 30 Frequency of Treatment Other frequency 5x a week Treatment Plan OT Treatment Plan ADL Training,Functional Mobility,Therapeutic Exercises ,Patient/Family Education, Discharge Planning Other Treatment Recommendations and Next Transfer to [facility] with MODA X1. Treatment Focus Discharge Recommendations OT Discharge Recommendations SNF Rehab Transportation Needs at Discharge Wheelchair/Cabulance
--- NOTE | 2024-10-04 14:04 | CM.DPC ---
DCP MBS Cont: Per MD, pt to have MBS today with ST to determine pt's swallow needs to determine SNF rehab vs comfort care. Per Therapies Director Amy, working to get pt on the schedule today between ST and DI availability today and might be around 1430. GUALBERTO updated Vivian at [facility] and she will continue to follow for MBS results and to determine [facility] for rehab vs comfort with Hospice. Aleyda Squires MSW
--- NOTE | 2024-10-04 16:09 | DIET.PN1 ---
Dietary Progress Note Assessment: Enteral feeds continue at goal rate. No loose bowel movements reported today. Per hospitalist note, GOC discussed later tonight. Will f/u if plan is for PEG. Ht: 177.8 cm Wt: 83.5 kg BMI: 27.7 Last BM: 10/03/24 (10/03/24 06:00) MNA: 12 Solo Score: 14 Diet: 09/26/24 19:17 NPO Diet Diet Modifications: crush pills in applesauce- chin tuck NPO Type: NPO except for Meds 09/29/24 Lunch Tube Feeding Diet Diet Modifications: TF Supplement type: Jevity 1.2 angela TF mode of delivery: Continuous Starting flow rate mL/hr: 10 Flow rate goal mL/hr: 65 Titration Schedule to reach Goal Rate: 10 mL Q8H as tolerated Max total daily volume in mL: 1,560 Free fluid: 180 Free Water Frequency: Q4H Comment: give extra 180ml now x 1 Nutrition Type of Feeding Tube NG/OG 10/03/24 10:41 Labs: RBC 4.67 X10^6/uL (4.5-5.9) 09/30/24 06:00 Hgb 13.4 g/dL (13.5-17.5) L 09/30/24 06:00 Hct 39.1 % (41-53) L 09/30/24 06:00 Creatinine 0.70 mg/dL (0.66-1.25) 10/01/24 05:30 Lactate 1.4 mmol/L (0.7-2.1) 09/22/24 18:51 NT-Pro-B Natriuret Pep 288 pg/mL (<125) H 09/22/24 18:51 Electronically Signed by: Syeda Pedro 10/04/24 16:09 Clinical Dietitian [address] [id number]
--- NOTE | 2024-10-04 16:54 | ST.SWALLOW ---
Visit Care Team Role Provider Type Amilcar Gilbert MD Primary Care Provider Non-Staff Specialty: Internal Medicine Address: [address] [facility], [place], [address] Email: Han oCy DO Emergency Provider Physician Referring Provider Specialty: Emergency Medicine Address: [address] [place] [address], [address] Email: [email or web address] MD Admit Provider Physician Attending Provider Specialty: Internal Medicine Address: [address] [place] [address], [id number] Email: Modified Barium Swallow Study CIVIL TECHNICIAN Modified Barium Swallow Study Start: 09/27/24 12:56 Freq: Status: Active Protocol: Document 10/04/24 14:36 CG (Rec: 10/04/24 14:43 CG [id number]) Modified Barium Swallow Study Total Time Visit Start Time 13:00 Visit Stop Time 13:20 Total Visit Minutes [address] Martín Montelongo Reason for Referral Dysphagia Setting Setting Acute Care Patient Information Identification Type Name,Date of Patient History Per H&P on 09/22/24, 59-year- old male with past medical history of hypertension, BPH and Parkinson's disease presents with complain of shortness of breath and cough. Per the patient's report, the patient was seen here yesterday with similar symptoms. The patient was found to have rhinovirus and was stable to be discharged back to his assisted living. However when the patient arrived to his assisted living , the patient has increasing shortness of breath, wheezing and coughing. The patient state that his cough was only mildly productive. The patient also admit to have some subjective fever but denies any chills, nausea, vomiting or diarrhea. Per MBSS completed on 09/27/24, ?Pt was visualized with x1 instances of silent aspiration with spoon sip of thin liquids. Consistent penetration was noted with honey-thick liquids in additional trials, ranging from transient to deep reaching the level of the vocal folds. Multiple strategies were trialed; a chin tuck and oral hold were not effective in eliminating or reducing depth of penetration consistently.? He remained NPO with free ice chip protocol. Modest clinical improvement since MBSS with reduced overt s/sx of aspiration, though unable to objectively assess given history of silent aspiration without instrumental study. Repeat Modified Barium Swallow Study (MBSS) completed to visualize and assess swallow function and anatomy, determine aspiration risk, and inform goals of care. Subjective Observations Increased alertness since previous MBSS, though ongoing fatigue. Previous oral motor evaluation revealed missing dentition, lingual and labial weakness and incoordination, and presence of mild tremors. Pt continues to be on room air . NG tube in place and pt has been receiving enteral feedings for about a week. Pt presents with very occasional wet cough at baseline. Clinically at bedside, pt has shown slight improvement since last MBS date last week, but continues to present as significantly weak. Pt was seated in the fluoroscopy chair with directions and procedures described for him. He indicated he understood and agreed to proceed. Patient Positioning Position View Lateral Imaging Lateral View Textures Administered Trials Presented Thin Liquid via Spoon (IDDSI 0 ),Mildly Thick Liquid via Spoon (IDDSI 2),Mildly Thick Liquid via Straw (IDDSI 2), Moderately Thick Liquid via Spoon (IDDSI 3),Puree (IDDSI 4 ) Barium Tablet No The IDDSI Framework Protocol: IDDSI.1 Oral Impairment Source: The Modified Barium Swallow Impairment Profile (MBSImP??) Lip Closure No labial escape Tongue Control During Bolus Hold Posterior escape of greater than half of bolus Bolus Transport/Lingual Motion Repetitive/disorganized tongue motion Oral Residue Residue collection on oral structures Initiation of Pharyngeal Swallow Bolus head at posterior laryngeal surface of epiglottis Additional Oral Impairment Observations Moderate impairment. Oral acceptance of bolus was WFL. Patient demonstrated adequate labial seal. Bolus formation was disorganized and inefficient. Anterior- posterior transit of the bolus was sluggish/slowed. Mastication was prolonged. There were moderate amounts of oral residue requiring multiple attempts at AP transit to propel posteriorly. Oral bolus control was mildly reduced. Pharyngeal Impairment Source: The Modified Barium Swallow Impairment Profile (MBSImP??) Soft Palate Elevation No bolus between soft palate & pharyngeal wall Laryngeal Elevation Min.sup.move. thyroid cart. w/ min.approx.arytenoids to epiglot.petiole Anterior Hyoid Excursion Partial anterior movement Epiglottic Movement No inversion Laryngeal Vestibular Closure Incomplete; narrow column air/ contrast in laryngeal vestibule Pharyngeal Stripping Wave Present - diminished Pharyngoesophageal Segment Opening Partial distention/partial duration; partial obstruction of flow Tongue Base Retraction Wide column of contrast/air betwn tongue base & post. pharyngeal wall Pharyngeal Residue Collection of residue within/ on pharyngeal structures Location Diffuse (>3 areas) Additional Pharyngeal Impairment Severe impairment. Swallow was Observations initiated with liquids and semi-solids at or below the valleculae. Velopharyngeal closure was WFL. Hyoid/ laryngeal elevation was judged to be reduced. The epiglottis did invert, though very minimally and only with heavier boluses. Tongue base retraction was reduced. Pharyngeal stripping wave was reduced. Cricopharyngeal opening appeared to impede bolus flow into the esophagus, though somewhat difficult to definitely discern given severity of pharyngeal stripping impairment. Post- swallow residue was severe, primarily at the base of tongue, along the anterior pharyngeal wall, valleculae, and pyriform sinuses. Pt did not sensate to residue and did not attempt to clear independently. Transient to deep penetration occurred with thin, nectar, and honey thick liquids as well as puree, though bolus did not reach the level of the vocal folds except when residue from thin liquid slowly trickled down to reach the vocal folds during subsequent swallows. A cued cough and second swallow was very minimally effective in clearing some of the penetrated material. Pt became highly fatigued as study went on, and after several sips/ bites, cough strength became weaker and attempts to clear laryngeal and pharyngeal residue were unsuccessful. The following compensatory strategies were trialed with the following results: - chin tuck: did not eliminate penetration, though appeared to reduce depth of penetration ; only minimally reduced pharyngeal residue - repeat swallow: some material was cleared, though not all - Oral hold (3 seconds): did not appear to improve timing of swallow initiation and did not appear to reduce penetration. Penetration / Aspiration Scale (PAS): Thin 5: Material enters the airway, contacts the vocal folds, and is not ejected from the airway [place] / Mildly Thick 3: Material enters the airway, remains above the vocal folds, and is not ejected from the airway Honey / Moderately Thick 3: Material enters the airway, remains above the vocal folds, and is not ejected from the airway Pudding / Semi-solid 3: Material enters the airway, remains above the vocal folds, and is not ejected from the airway Anticipate increased risk of aspiration as laryngeal residue thins out when it mixes with pt's secretions and pt is unable to sense or clear it from airway. A/P View The IDDSI Framework Protocol: IDDSI.1 Clinical Impressions Dysphagia Type Oral,Pharyngeal Findings Pt continues to present with moderate-severe oropharyngeal dysphagia. Oral phase deficits c/b by prolonged and disorganized bolus formation in addition to slowed AP transit; these deficits resulted in moderate amounts of oral residue primarily across semi-solids requiring multiple attempts by pt to propel posteriorly prior to swallow initiation. Pharyngeal phase deficits c/b delayed swallow initiation with multiple consistencies of liquids (initiated at valleculae or below) and reduced hyolaryngeal elevation /excursion resulting in sluggish and incomplete epiglottic inversion. Base of tongue retraction and pharyngeal stripping wave were notably reduced, resulting in severe pharyngeal residue at the base of tongue, posterior pharyngeal wall, valleculae, and pyriform sinus across solid consistencies. Pt unable to clear it with cued coughing, throat clearing , and multiple swallows despite multiple attempts. Pt was visualized with consistent penetration was noted with thin, nectar, and honey-thick liquids, ranging from transient to deep reaching the level of the vocal folds. Multiple strategies were trialed; a chin tuck and oral hold were not effective in eliminating or reducing depth of penetration consistently. Given discussion with MD, currently recommend continuation of NPO status and discussion of goal of care including hospice given that pt is unable to safely meet nutrition and hydration needs given the severity of pharyngeal weakness resulting in consistent penetration, laryngeal residue that is likely to thin out as it mixes with secretions, and significant fatigue, which increases pt's risk of aspiration. If pt chooses to pursue comfort care, he may benefit from use of chin tuck with nectar-thick and puree textures to reduce depth of laryngeal penetration and assist in residue clearance. Pt will continue to benefit from frequent oral care to minimize colonization of oral pathogens that can increase pt 's risk of developing aspiration pneumonia if aspirated. He would additionally benefit from free ice chip protocol for oral comfort and to promote quality of life at this time. Recommend goals of care discussion with MD and discussion re: meeting current nutrition/hydration needs. Rehabilitation Potential Poor Patient Appropriate for Therapy No Recommendations Diet Diet Order NPO Medication Recommendation Not Recommended by Mouth Comments Ice chip protocol Aspiration Precautions Recommended Precautions Frequent Rest Periods,Chin Tuck Additional Precautions For ice chip protocol: fully upright, oral care before, 1:1 supervision Treatment Plan Therapy Recommendations Inpatient Speech Therapy, Outpatient Speech Therapy Recommended Referrals Dietary Consult Therapy Strategy Recommendations Sitting Upright (90 deg),Chin Tuck,Double Swallow Placement Recommendation After Discharge [facility] Care Facility,Palliative Care Additional Recommendations/Comments Ice chip protocol to promote oral hygiene and reduce risk of swallow strength decompensation.
--- NOTE | 2024-10-04 19:52 | PC.NURSE ---
Patient tolerating TF as ordered with NG in place to left nare. New TF line and set up changed with supplies 10/04 1900. SOn is at bedside, patient denies pain, nothing new to note at this time. Son and patient attempting to discuss next steps for goals of care, his son is making up a list of questions to discuss options with the MD tomorrow. IV to left hand noted date, patient not receiving IV medications at this time, night patrol inspector RN states she will follow up on removing/replacing. No signs of infection or discomfort at site at this time. Bed alarm on for safety, call light within reach.
[2024-10-05] VITALS (7 sets, daily range): BP systolic 101–137; BP diastolic 60–76; PULSE 67–77; RESP 15–23; TEMP 36.1–36.8; O2SAT 93–97
[2024-10-05] MEDS: HEPARIN 5,000 UNIT/ML VIAL 5000 UNIT SUBCUT ×2 (08:59→20:57)
[2024-10-05] MEDS: CARBIDOPA-LEVODOPA 25/100 TABLET 3 EACH PO ×3 (08:59→20:57)
[2024-10-05] MEDS: FUROSEMIDE 40 MG TABLET PO (08:59)
[2024-10-05] MEDS: CHOLECALCIFEROL (VITAMIN D3) 1,000 UNIT TABLET 1000 UNIT PO (09:00)
[2024-10-05] MEDS: MULTIVITAMIN 1 TABLET 1 TAB PO (09:00)
[2024-10-05] MEDS: SODIUM CHLORIDE 0.9% FLUSH 10 ML IV ×2 (09:01→20:58)
[2024-10-05] MEDS: FLUTICASONE 120 SPRAY/16 GM SPRAY.SUSP NASAL (09:01)
[2024-10-05] MEDS: lisinopriL 10 MG TABLET PO (09:02)
[2024-10-05] MEDS: FINASTERIDE 5 MG TABLET PO (09:04)
--- NOTE | 2024-10-05 10:54 | PT.IPTN ---
Current Diagnoses Chronic obstructive pulmonary disease with (acute) exacerbation (09/22/24) Physical Therapy Treatment Note M2 PT-IP Current Condition Start: 09/25/24 10:44 Freq: NEEDED Status: Active Protocol: Document 09/25/24 10:45 MB (Rec: 09/25/24 11:51 MB [id number]) Physical Therapy Current Condition Current Condition Evaluation Date 09/25/24 Treatment Diagnosis ARF and PNA M3 PT-IP Subjective Start: 09/25/24 10:44 Freq: NEEDED Status: Active Protocol: Document 10/05/24 11:37 TS (Rec: 10/05/24 11:49 TS [id number]) Subjective Physical Therapy Visit Type Type Treatment Note Visit Start Time 10:54 Visit Stop Time 11:35 Number of GIS GEOGRAPHER Visits 2 Physical Therapy Visit Comments Patient Comments Pt is agreeable to PT. M4 PT-IP Mobility and Gait Start: 09/25/24 10:44 Freq: NEEDED Status: Active Protocol: Document 10/05/24 11:37 TS (Rec: 10/05/24 11:49 TS [id number]) PT-Bed Mobility Assessment Supine to Sit Supine to Sit Maximum Assistance,1 Person Assistance,Head of Bed Elevated,Bedrails Scooting Scooting to Edge of Bed Maximum Assistance PT-Transfer Assessment Sit to and From Stand Sit to and from Stand Maximum Assistance,1 Person Assistance Equipment Transfer Assistive Device Gait Belt,Front Wheeled Walker Orthotic/Prosthetic Devices or Brace: No Transfers Transfer Destination Chair,Bedside Commode Transfer Technique Stepping Transfer Ability Level of Assist Maximum Assistance,1 Person Assistance Comments Mobility Comments Supine to sit MaxA for uprighting trunk with COMMUNITY RESOURCE CONSULTANT. He scoots to EOB MaxA with use of transfer pad. STS MaxA with FWW. Pt ambualtes to the chair ~3' MaxA with FWW. While sitting in the chair pt reports needing to use commode . Stand step pivot to commode MaxA x1. Nursing in room to assist with pericare. STS from commode x2 with FWW MaxA. Pt performs stand step pivot back to the chair, pt was left in the chair, all needs met. Gait Assessment Gait Gait Assistance Required: Maximum Assistance,1 Person Assist Distance (Feet) 5 Able to Maintain Weight Bearing Status Yes During Gait Assistive Devices Assistive Device Gait Belt,Front Wheeled Walker Orthotic/Prosthetic Devices or Brace: No Gait Deviations General Gait Pattern Decreased Stride Length, Decreased Feet Clearance,Step- to Gait Factors Limiting Gait Function Factors Limiting Gait Function Decreased Activity Tolerance, Decreased Strength, Incoordination,Limited Range of Motion,Poor Balance PT-Balance Assessment Sitting Balance and Reactions Static Sitting Balance Ability Fair Dynamic Sitting Balance Ability Fair Standing Balance and Reactions Static Standing Balance Ability Poor Dynamic Standing Balance Ability Poor Device Used FWW M5 PT-IP Objective Assessments Start: 09/25/24 10:44 Freq: NEEDED Status: Active Protocol: Document 09/25/24 10:45 MB (Rec: 09/25/24 11:51 MB [id number]) Orientation Orientation/Cognition Level of Alertness Alert Orientation Name,Age,Birthday,Year,Place Safety Awareness Decreased Safety Awareness Memory Description No Deficits Noted Comments Pt has communication barriers from [facility] but it does not appear that he is cognitively impaired, may benefit from more formal cognitive assessment from OT Gross Range of Motion Upper Extremity ROM Assessment Bilaterally Impaired Lower Extremity ROM Assessment Bilaterally Impaired Strength Upper Extremity Strength Assessment Bilaterally Impaired Lower Extremity Strength Assessment Bilaterally Impaired Comments Strength Comments Limited range and strength all joints and pt does not tolerate formal assessment today given acute respiratory illness and great effort he puts into log rolling, getting to EOB and up to walker and chair today Coordination Assessment Gross Coordination Gross Coordination Impaired Sensation Assessment Comments Sensation Comments Not tested today Other Assessments Other Other Assessments Increased flexor tone in general, mild, and may be from current decreased mobility M6 PT-IP Treatment Start: 09/25/24 10:44 Freq: NEEDED Status: Active Protocol: Document 10/05/24 11:37 TS (Rec: 10/05/24 11:49 TS [id number]) Physical Therapy Treatment Education Education Provided Safety M7 PT-IP Assessment and Plan Start: 09/25/24 10:44 Freq: NEEDED Status: Active Protocol: Document 10/05/24 11:37 TS (Rec: 10/05/24 11:49 TS [id number]) PT Summary Assessment and Plan Potential Rehabilitation Potential Fair Summary Impairments ROM,Strength,Balance, Coordination,Bed Mobility, Transfers,Gait,Activity Tolerance Progress Towards Goals Slow Progress due to Medical Issues Assessment Summary Pt continues to require MaxA for bed mobility, STS and transfers. He took more steps this session with slightly better balance. Goals Bed Mobility Goal Minimal Assistance Transfer Goal Minimal Assistance,Front Wheeled Walker Gait Goal Minimal Assistance,Front Wheel Walker Gait Distance 25 Days to Meet Goals 5 Frequency of Treatment Frequency Of Treatment Once a Day Treatment Plan Physical Therapy Treatment Plan Bed Mobility Training,Transfer Training,Gait Training, Therapeutic Exercise,Balance Retraining,Discharge Planning, Hot or Cold Pack,Neuromuscular Re-ed,Coordination Retraining ,Manual Therapy Precautions Other Precautions Droplet Recommendations To Nursing Amount of Assist Needed 2 Person Assist,Total Assistance Discharge Recommendations PT Discharge Recommendations SNF Rehab Other Discharge Recommendations LTC Transportation Needs at Discharge Wheelchair/Cabulance,Stretcher /Ambulance
--- NOTE | 2024-10-05 11:16 | CM.DPNOTE ---
Addendum entered by RODRIGUEZ Ivory 10/05/24 12:52: ADD: According to Shakira at [facility], RN start of care slot is being held for patient Thursday. Shakira will be in touch in case this slot can be moved up. Khalida at [facility] updated. Original Note: DCP Cont Patient and son Delvin prefer hospice services at discharge. Info visit completed this morning by [facility] with patient and son by phone, consent will be signed by son this evening. Updated provider with above, dobhof feeding tube will be removed before patient's discharge. There is no period of clinical observation needed after removal according to Dr Rodrigues. Updated Khalida at [facility]. [facility] remains agreeable to admission; requests that [facility] admit same day. [facility] schedule unknown at this time, will plan to discuss with their scheduling/intake team, LM requesting CB. CM team following closely for coordination of discharge plan. DARINEL
--- NOTE | 2024-10-05 11:34 | SLP.IPNOTE ---
Per MD and social service manager, patient and son Delvin prefer hospice services at discharge. Spoke with MD and no further questions/concerns from pt or family re: swallowing or NPO status. Please see MBS from 10/04/24 for most recent detailed results and recommendations. Pt may benefit from use of chin tuck with nectar-thick liquids and puree textures if he chooses to consume PO intake for comfort in order to reduce depth of laryngeal penetration and assist in residue clearance. He will continue to benefit from frequent oral care to minimize colonization of oral pathogens that can increase risk of developing aspiration pneumonia. Additionally, recommend ongoing free ice chip protocol for oral comfort and quality of life. Given no further concerns at this time and upcoming discharge, CRUSHER AND BLENDER OPERATOR to discharge from services at this time. MD aware and agreeable.
--- NOTE | 2024-10-05 12:43 | OT.IPNOTE ---
Pt and son have decided on home with hospice at discharge. Discharge pt from OT services.
--- NOTE | 2024-10-05 13:56 | CM.DPNOTE ---
DCP Cont According to Khalida at [facility], patient can be admitted tomorrow 10/06, hot die picker tentatively scheduled for 1230-130. Dobhof NG needs to be removed before [facility] able to admit. Dr Rodrigues updated with above. Bedside RN, Vianey also updated. Plan: Discharge to [facility] w/ hospice services to open this weekend tentatively scheduled for tomorrow. CM team following closely for coordination. DARINEL
--- NOTE | 2024-10-05 14:18 | DIET.PN1 ---
Dietary Progress Note Assessment: Pt to d/c on hospice. NG tube will be removed and enteral feeds stopped. No further nutrition needs. Re-consult if plan of care changes. Ht: 177.8 cm Wt: 86 kg BMI: 27.7 Last BM: 10/05/24 (10/05/24 11:33) MNA: 12 Solo Score: 16 Diet: 09/26/24 19:17 NPO Diet Diet Modifications: crush pills in applesauce- chin tuck NPO Type: NPO except for Meds 09/29/24 Lunch Tube Feeding Diet Diet Modifications: TF Supplement type: Jevity 1.2 angela TF mode of delivery: Continuous Starting flow rate mL/hr: 10 Flow rate goal mL/hr: 65 Titration Schedule to reach Goal Rate: 10 mL Q8H as tolerated Max total daily volume in mL: 1,560 Free fluid: 180 Free Water Frequency: Q4H Comment: give extra 180ml now x 1 Nutrition Type of Feeding Tube NG/OG 10/05/24 06:13 Labs: RBC 4.67 X10^6/uL (4.5-5.9) 09/30/24 06:00 Hgb 13.4 g/dL (13.5-17.5) L 09/30/24 06:00 Hct 39.1 % (41-53) L 09/30/24 06:00 Creatinine 0.70 mg/dL (0.66-1.25) 10/01/24 05:30 Lactate 1.4 mmol/L (0.7-2.1) 09/22/24 18:51 NT-Pro-B Natriuret Pep 288 pg/mL (<125) H 09/22/24 18:51 Electronically Signed by: Syeda Pedro 10/05/24 14:18 Clinical Dietitian [address] [address]
--- NOTE | 2024-10-05 17:26 | PM.PN.1 ---
Subjective Subjective Interval history: Summary: 59 M admitted initially with respiratory failure, viral illness but more likely aspiration pneumonia due to progressive multisystem atrophy. He failed a repeat swallow evaluation. Now plan is for home with hospice. Exam Vital Signs (past 8 hours): - 10/05/24 09:35 10/05/24 13:45 Temperature 98.2 F 98.0 F Pulse Rate 75 70 Respiratory Rate 23 22 Blood Pressure 101/63 112/60 Pulse Oximetry 95 97 Fraction of Inspired Oxygen 21 SaO2/FiO2 Ratio 452 Oxygen Delivery Method Room Air Oxygen Flow Rate 0 Narrative Exam Narrative: NAD, alert and oriented. Chronically ill, flat affect. NG tube in place. Lungs are clear, normal rate and effort. Heart is regular, no murmur gallop or rub. Abdomen is soft, non distended. Extremities are free of edema. Objective Labs 09/30/24 06:00 10/01/24 05:30 [facility] Medical History Constipation BPH (benign prostatic hyperplasia) Hypertension Parkinsons disease Social History household members: none Smoking Status: Unknown if ever smoked Assessment & Plan Assessment & Plan narrative: 1. Acute respiratory failure with hypoxemia. Present on admission and resolved. 2. Bacterial pneumonia on presumed viral pneumonia. Present on admission and improving. 3. Asthma exacerbation. Present on admission and improved. 2. Severe dysphagia, present on admission and active. See plan below. 3. BPH, present on admission and stable. 4. Hypertension, present on admission and stable. ?- stopped home atenolol as he is also on propranolol. Also added lisinopril. 5. Multisystem atrophy (progressive), present on admission and stable. ?- continue home sinemet. PLAN: - plan for home with hospice. Okay with dysphagia diet for comfort while understanding aspiration risk with this. - continue with NG tube for now while he is tolerating for some nutrition at this time, will not go back to SNF with hospice with NG tube. Dispo: Return to SNF on hospice, pending bed availability. Time-Based Coding :: [TOTAL MINUTES] spent with patient and on the chart (including review of chart, obtaining history, exam, reviewing outside data, placing orders, documenting exam and treatment plan, and counseling patient) on [DATE].
[2024-10-05] MEDS: TRAZODONE 50 MG TABLET 25 MG PO (20:57)
[2024-10-05] MEDS: TAMSULOSIN 0.4 MG CAPSULE PO (20:58)
[2024-10-06 06:00] VITALS: BP 95/55; PULSE 72; RESP 20; TEMP 36.7; O2SAT 90
[2024-10-06] MEDS: CARBIDOPA-LEVODOPA 25/100 TABLET 3 EACH PO (09:20)
[2024-10-06] MEDS: HEPARIN 5,000 UNIT/ML VIAL 5000 UNIT SUBCUT (09:20)
[2024-10-06] MEDS: SODIUM CHLORIDE 0.9% FLUSH 10 ML IV (09:21)
--- NOTE | 2024-10-06 10:30 | PM.DS.1 ---
History of Present Illness History of Present Illness Date Patient Seen: 10/06/24 Time Patient Seen: 10:30 Chief complaint: SOB Narrative: 59-year-old male with past medical history of hypertension, BPH and Parkinson's disease presents with complain of shortness of breath and cough. Per the patient's report, the patient was seen here yesterday with similar symptoms. The patient was found to have rhinovirus and was stable to be discharged back to his assisted living. However when the patient arrived to his assisted living, the patient has increasing shortness of breath, wheezing and coughing. The patient state that his cough was only mildly productive. The patient also admit to have some subjective fever but denies any chills, nausea, vomiting or diarrhea. In our ER, the patient was hemodynamically stable. The patient was requiring 2L of oxygen per nasal cannula. Chest x-ray shows scatter pattern of possible atypical pneumonia/bronchitis/pulmonary edema. The patient was given IV Solumedrol, duonebs and Azithromycin. BNP was in the 200s. Due to possible pulmonary edema on x-ray patient was given 20 mg of IV lasix . Discharge Providers Provider Date of admission: 09/22/24 20:14 Discharge Date: 10/06/24 Primary care physician: Amilcar Gilbert MD Consults: 09/25/24 10:34 Consult to Physical Therapy Evaluate & Treat Comment: Physician Instructions: Evaluate and Treat 09/26/24 10:05 Consult to Speech Therapy Evaluate & Treat Comment: concern for aspiration Physician Instructions: Evaluate and treat 09/26/24 10:06 Consult to Occupational Therapy Evaluate & Treat Comment: Physician Instructions: Evaluate and treat Discharge provider: Zaire Rodrigues DO Summary Hospital Course Discharge Diagnosis: 1. Acute respiratory failure with hypoxemia. Present on admission and resolved. 2. Bacterial pneumonia on presumed viral pneumonia. Present on admission and improving. 3. Asthma exacerbation. Present on admission and improved. 2. Severe dysphagia, present on admission and active. See plan below. 3. BPH, present on admission and stable. 4. Hypertension, present on admission and stable. 5. Multisystem atrophy (progressive), present on admission and stable. Hospital Course: This is a 59-year-old male with a past medical history of hypertension, BPH, and multisystem atrophy who was initially admitted with presumed bacterial and viral pneumonia after viral PCR revealed a rhino virus and acute respiratory failure with hypoxia. He was slow to improve with steroids and antibiotics, and eventually he was noted to have coughing with meals. Evaluation with a barium swallow and speech pathology showed aspiration. Initially he wanted to trial supplemental food nutrition via an NG tube to see if there may be some improvement in his swallow, however after a repeat evaluation he still showed aspiration and was recommended for an NPO diet. After continued goals of care discussions, the patient was not interested in a feeding tube, and was discharged on hospice. Recommend continued evaluation if desired, and patient can have a diet as tolerated for comfort, and have continued his oral Sinemet as well for comfort with the knowledge that swallowing is a risk. He was discharged to SNF on hospice. Time Spent with Patient Time spent: Greater than 30 minutes Exam Vital Signs (past 8 hours): - 10/06/24 06:00 Temperature 98.1 F Pulse Rate 72 Respiratory Rate 20 Blood Pressure 95/55 L Pulse Oximetry 90 L Oxygen Flow Rate 0 Fraction of Inspired Oxygen 21 SaO2/FiO2 Ratio 452 Oxygen Delivery Method Room Air Oxygen Flow Rate 0 Narrative Exam Narrative: NAD, alert and oriented. Chronically ill, flat affect. NG tube in place. Lungs are clear, normal rate and effort. Heart is regular, no murmur gallop or rub. Abdomen is soft, non distended. Extremities are free of edema. Objective Labs 09/30/24 06:00 10/01/24 05:30 [facility] Medical History Constipation BPH (benign prostatic hyperplasia) Hypertension Parkinsons disease Social History household members: none Smoking Status: Unknown if ever smoked Discharge Plan Discharge Plan Patient Disposition: SNF Transfer to: [facility] Provider Discharge Comment: 59 M with multisystem atrophy admitted initially for hypoxic respiratory failure. 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 He is still unable to swallow safely, ultimately elected for discharge on hospice rather than feeding tube placement. He was given some supplemental nutrition via NGT to see if increased nutrition would allow him to swallow more safely. Recommend continuing his home medications as much as possible, mainly focusing on sinemet and propranolol for tremor. Continue on dysphagia diet for comfort, with the understanding that there is aspiration ongoing. Discharge orders & Medications Prescriptions: Continued trazodone 50 mg tablet 25 mg PO BEDTIME PRN (Reason: Insomnia) acetaminophen 325 mg tablet 650 mg PO Q4HR PRN (Reason: pain) fluticasone propionate 50 mcg/actuation spray,suspension 2 spray intranasal DAILY polyethylene glycol 3350 17 gram/dose powder 17 g PO DAILY Rx Instructions: Mix with 4-8oz water. cholecalciferol (vitamin D3) [Vitamin D3] 25 mcg (1,000 unit) tablet 25 mcg PO DAILY finasteride 5 mg tablet 5 mg PO DAILY propranolol 20 mg tablet 20 mg PO DAILY Rx Instructions: Hold if BP is < 140/90 carbidopa-levodopa 25-100 mg tablet 3 tab PO 3XD tamsulosin 0.4 mg capsule 0.4 mg PO BEDTIME albuterol sulfate 90 mcg/actuation Hfa Aerosol Inhaler 2 puff INHALATION Q2HR PRN (Reason: Shortness Of Breath) Discontinued atenolol 50 mg tablet 50 mg PO DAILY multivitamin Tablet 1 tab PO DAILY Follow up/Referrals: Amilcar Gilbert MD [Primary Care Provider] - Discharge Health Status Multidrug resistant organism: No MDRO Precautions: [place] Diet/Activity/Treatments Diet: Diet as Tolerated Diet comment: dysphagia diet for comfort, pureed with thickened liquids for comfort / med Activity: No restrictions Other treatments: [facility] Reason for rehabilitation: Other Visit Report/Discharge Packet Stand Alone Forms: Patient Portal/API, Stroke Signs & Symptoms Discharge Data Primary Care Provider: Amilcar Gilbert
[2024-10-06 12:00] VITALS: BP 109/65; PULSE 82; RESP 14; TEMP 36.6; O2SAT 93
--- NOTE | 2024-10-06 13:34 | CM.DPNOTE ---
DC Note Discharge to [facility] today. [facility] SOC Monday 10/08 [id number]. Reviewed this plan with both patient and kody Hargrove, by phone, both aware and agreeable. [place]hof NG tube has been removed. Emailed signed med list and completed PASRR to Khalida at [facility]. Facility van arranged for machine operator hop picker at 1300. Bedside RN updated, report number provided for [facility]. Emailed draft of the DC Summary to Shakira at [facility]. Updated that kody Hargrove did not sign the W consent form; included this form in the SNF packet. Delvin plans to see patient tonight at [facility]. Plan: Discharge to [facility] via facility van. [facility] to see patient at SNF Thursday. Feeding tube out- comfort measures. DARINEL
== END 2024-10-06 13:08 | DRG 139 ==
LOC: ED 20:11 → AC 20:16
PROVIDERS: Internal Medicine; Admitting Provider Internal Medicine; Emergency Provider Emergency Medicine; PCP Internal Medicine; Referring Provider Emergency Medicine; Visit Provider Internal Medicine
DX: J12.89 Other viral pneumonia (principal); J96.01 Acute respiratory failure with hypoxia; E43 Unspecified severe protein-calorie malnutrition; G20.A1 Parkinson's disease without dyskinesia, without mention of fluctuations; N40.0 Benign prostatic hyperplasia without lower urinary tract symptoms; R13.10 Dysphagia, unspecified; J15.9 Unspecified bacterial pneumonia; J45.901 Unspecified asthma with (acute) exacerbation; I10 Essential (primary) hypertension; B97.89 Other viral agents as the cause of diseases classified elsewhere; G13.8 Systemic atrophy primarily affecting central nervous system in other diseases classified elsewhere; Z66 Do not resuscitate; Z68.26 Body mass index [BMI] 26.0-26.9, adult
CPT/HCPCS: 36415; 71045; 74018; 74230; 80048; 80053; 83605; 83735; 83880; 84100; 84484; 85025; 85610; 87205; 87633; 92526; 92610; 92611; 93005; 93306; 94640; 94762; 96374; 96375; 97116; 97161; 97166; 97530; 97535; 99285; J0360; J1644; J1940; J2543; J2919; J7613